=== PATIENT | female | born 1965 | race African-American/Black ===

== ENCOUNTER 2019-01-18 20:31 | Emergency (ER) | payer BC, OTHER ==
--- NOTE | 2019-01-18 21:12 | EDPHYS ---
Physician Documentation [facility] Name: Susana Lane Age: 53 yrs Sex: Female : 1965 Arrival Date: 01/18/2019 Time: 20:33 Bed 18 Private MD: Laurie Holland ED Physician Jesus Manuel Najera HPI: 01/18 21:36 This 53 yrs old Black Female presents to ER via Ambulatory with complaints of Shoulder snw Pain. 21:36 The patient or guardian complains of decreased range of motion, pain, tenderness. snw posterior aspect of right shoulder. Context: The problem was sustained at an unknown site, resulted from an unknown reason, The patient experiences decreased range of motion, when attempts to raise arm, The patient reports no obvious deformity. Onset: The symptoms/episode began/occurred gradually, 1 month(s) ago, and became persistent. Modifying factors: the symptoms are alleviated by nothing. The symptoms are aggravated by movement. Severity of symptoms: At their worst the symptoms were moderate, severe. Treatment prior to arrival includes: went to PCP and was given arthritis pain medication one month ago. The patient has experienced a previous episode, last month, and the symptoms today are exactly the same. as noted. 21:37 denies trauma. 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 - Social history:: Smoking status: Patient/guardian denies using tobacco. - Ebola Screening: : No symptoms or risks identified at this time. ROS: 21:35 Constitutional: Negative for fever, chills, and weight loss, Eyes: Negative for injury, snw pain, redness, and discharge, ENT: Negative for injury, pain, and discharge, Neck: Negative for injury, pain, and swelling, Cardiovascular: Negative for chest pain, palpitations, and edema, Respiratory: Negative for shortness of breath, cough, wheezing, and pleuritic chest pain, Abdomen/GI: Negative for abdominal pain, nausea, vomiting, diarrhea, and constipation, Back: Negative for injury and pain, : Negative for injury, bleeding, discharge, and swelling, Skin: Negative for injury, rash, and discoloration, Neuro: Negative for headache, weakness, numbness, tingling, and seizure, Psych: Negative for depression, anxiety, suicide ideation, homicidal ideation, and hallucinations. 21:35 MS/extremity: Positive for decreased range of motion, pain, tenderness, of the posterior aspect of right shoulder. Exam: 21:34 Constitutional: This is a well developed, well nourished patient who is awake, alert, snw and in no acute distress. Head/Face: Normocephalic, atraumatic. Eyes: Pupils equal round and reactive to light, extra-ocular motions intact. Lids and lashes normal. Conjunctiva and sclera are non-icteric and not injected. Cornea within normal limits. Periorbital areas with no swelling, redness, or edema. ENT: Nares patent. No nasal discharge, no septal abnormalities noted. Tympanic membranes are normal and external auditory canals are clear. Oropharynx with no redness, swelling, or masses, exudates, or evidence of obstruction, uvula midline. Mucous membranes moist. Neck: Trachea midline, no thyromegaly or masses palpated, and no cervical lymphadenopathy. Supple, full range of motion without nuchal rigidity, or vertebral point tenderness. No Meningismus. Chest/axilla: Normal chest wall appearance and motion. Nontender with no deformity. No lesions are appreciated. Cardiovascular: Regular rate and rhythm with a normal S1 and S2. No gallops, murmurs, or rubs. Normal PMI, no JVD. No pulse deficits. Respiratory: Lungs have equal breath sounds bilaterally, clear to auscultation and percussion. No rales, rhonchi or wheezes noted. No increased work of breathing, no retractions or nasal flaring. Abdomen/GI: Soft, non-tender, with normal bowel sounds. No distension or tympany. No guarding or rebound. No evidence of tenderness throughout. Back: No spinal tenderness. No costovertebral tenderness. Full range of motion. Skin: Warm, dry with normal turgor. Normal color with no rashes, no lesions, and no evidence of cellulitis. Neuro: Awake and alert, GCS 15, oriented to person, place, time, and situation. Cranial nerves II-XII grossly intact. Motor strength 5/5 in all extremities. Sensory grossly intact. Cerebellar exam normal. Normal gait. Psych: Awake, alert, with orientation to person, place and time. Behavior, mood, and affect are within normal limits. 21:34 Musculoskeletal/extremity: Extremities: grossly normal except: noted in the posterior aspect of right shoulder: decreased ROM, pain, ROM: limited active range of motion due to pain, Circulation is intact in all extremities. Sensation intact. Vital Signs: 20:40 BP 139 / 75; Pulse 70; Resp 18; Temp 98(O); Pulse Ox 97% on R/A; Weight 98.43 kg; lp1 Height 4 ft. 9 in. (144.78 cm); Pain 7/10; 21:40 BP 108 / 75; Pulse 71; Resp 17 S; Pulse Ox 97% on R/A; cc3 20:40 Body Mass Index 46.96 (98.43 kg, 144.78 cm) lp1 MDM: 20:52 Patient medically screened. snw 21:35 Data reviewed: vital signs, nurses notes. Data interpreted: Pulse oximetry: on room air snw is 97 %. Interpretation: normal. Counseling: I had a detailed discussion with the patient and/or guardian regarding: the historical points, exam findings, and any diagnostic results supporting the discharge/admit diagnosis, the need for outpatient follow up, to return to the emergency department if symptoms worsen or persist or if there are any questions or concerns that arise at home. Special discussion: I have referred the patient to see his PCP for further evaluation of high blood pressure. Based on the history and exam findings, there is no indication for further emergent testing or inpatient evaluation. I discussed with the patient/guardian the need to see the orthopedic surgeon for further evaluation of the symptoms. I discussed with the patient/guardian the need to see the primary care provider for further evaluation of the symptoms. Administered Medications: 21:20 Drug: Flexeril 10 mg Route: PO; cc3 21:41 Follow up: Response: No adverse reaction cc3 21:23 Drug: TORadol 60 mg Route: IM; Site: right gluteus; cc3 21:41 Follow up: Response: No adverse reaction; Pain is decreased cc3 Disposition: 01/18/19 21:12 Discharged to Home. Impression: Pain in right shoulder. - Condition is Stable. - Discharge Instructions: Joint Pain, Musculoskeletal Pain, Rotator Cuff Injury, Rotator Cuff Tendinitis, Shoulder Pain, Shoulder Range of Motion Exercises, Heat Therapy. - Prescriptions for Diclofenac Sodium 75 mg Oral Tablet Sustained Release - take 1 tablet by ORAL route 2 times per day; 30 tablet. orphenadrine citrate 100 mg Oral Tablet Sustained Release - take 1 tablet by ORAL route 2 times per day As needed; 20 tablet. - Medication Reconciliation Form, Thank You Letter, Antibiotic Education, Prescription Opioid Use form. - Follow up: Laurie Holland MD; When: 2 - 3 days; Reason: Recheck today's complaints, Continuance of care, Re-evaluation by your physician. Follow up: Emergency Department; When: As needed; Reason: Worsening of condition. Signatures: Rosi Villatoro, SUSAN-C POLISHER APPRENTICE-Csnw Scarlet Reed RN RN lp1 Maki Hoff cc3 Corrections: (The following items were deleted from the chart) 21:41 21:12 01/18/2019 21:12 Discharged to Home. Impression: Pain in right shoulder. cc3 Condition is Stable. Forms are Medication Reconciliation Form, Thank You Letter, Antibiotic Education, Prescription Opioid Use. Follow up: Laurie Holland; When: 2 - 3 days; Reason: Recheck today's complaints, Continuance of care, Re-evaluation by your physician. Follow up: Emergency Department; When: As needed; Reason: Worsening of condition. snw
--- NOTE | 2019-01-18 21:12 | ER ---
Nurse's Notes [facility] Name: Susana Lane Age: 53 yrs Sex: Female : 1965 Arrival Date: 01/18/2019 Time: 20:33 Bed 18 Private MD: Laurie Holland Diagnosis: Pain in right shoulder Presentation: 01/18 20:38 Presenting complaint: Patient states: Right shoulder pain for over month; Seen last lp1 month for pain and given medication with no relief; "I'm just getting tired of the pain"; denies any trauma to right shoulder. Transition of care: patient was not received from another setting of care. Onset of symptoms was January 18, 2019. Risk Assessment: Do you want to hurt yourself or someone else? Patient reports no desire to harm self or others. Initial Sepsis Screen: Does the patient meet any 2 criteria? No. Patient's initial sepsis screen is negative. Does the patient have a suspected source of infection? No. Patient's initial sepsis screen is negative. Care prior to arrival: None. 20:38 Method Of Arrival: Ambulatory lp1 20:38 Acuity: JAKOB 4 lp1 Triage Assessment: 21:14 General: Appears in no apparent distress. comfortable, Behavior is calm, cooperative, cc3 appropriate for age. Pain: Complains of pain in right arm and posterior aspect of right shoulder Quality of pain is described as aching. EENT: No signs and/or symptoms were reported regarding the EENT system. Neuro: Level of Consciousness is awake, alert, obeys commands, Oriented to person, place, time, situation, Appropriate for age. Cardiovascular: Denies chest pain, Patient's skin is warm and dry. Respiratory: Airway is patent Respiratory effort is even, unlabored, Respiratory pattern is regular, symmetrical. GI: Abdomen is round obese. : No signs and/or symptoms were reported regarding the genitourinary system. Derm: No signs and/or symptoms reported regarding the dermatologic system. Musculoskeletal: Circulation, motion, and sensation intact. Range of motion: limited in posterior aspect of right shoulder and right arm. 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 - Social history:: Smoking status: Patient/guardian denies using tobacco. - Ebola Screening: : No symptoms or risks identified at this time. Screenin:41 Abuse screen: Denies threats or abuse. Denies injuries from another. Nutritional lp1 screening: No deficits noted. Tuberculosis screening: No symptoms or risk factors identified. Fall Risk None identified. Assessment: 21:14 General: see triage assessment. cc3 21:41 Reassessment: Patient appears in no apparent distress at this time. Patient and/or cc3 family updated on plan of care and expected duration. Pain level reassessed. Patient is alert, oriented x 3, equal unlabored respirations, skin warm/dry/pink. KRISTI Aranda discharged the patient home with prescription given. No IV cannula in situ. Patient left ER vitally stable and ambulatory. Patient states feeling better. Patient states symptoms have improved. Vital Signs: 20:40 BP 139 / 75; Pulse 70; Resp 18; Temp 98(O); Pulse Ox 97% on R/A; Weight 98.43 kg; lp1 Height 4 ft. 9 in. (144.78 cm); Pain 7/10; 21:40 BP 108 / 75; Pulse 71; Resp 17 S; Pulse Ox 97% on R/A; cc3 20:40 Body Mass Index 46.96 (98.43 kg, 144.78 cm) lp1 ED Course: 20:33 Patient arrived in ED. do 20:34 Laurie Holland MD is Private Physician. do 20:39 Triage completed. lp1 20:39 Arm band placed on right wrist. lp1 20:40 Rosi Villator[facility] FNP-C [facility] snw 20:40 Jesus Manuel Najera MD is Attending Physician. snw 21:11 Laurie Holland MD is Referral Physician. snw 21:14 Maki Hoff is Primary Nurse. cc3 21:14 Patient has correct armband on for positive identification. Bed in low position. Call cc3 light in reach. Side rails up X 1. Pulse ox on. NIBP on. 21:40 No provider procedures requiring assistance completed. Patient did not have IV access cc3 during this emergency room visit. Administered Medications: 21:20 Drug: Flexeril 10 mg Route: PO; cc3 21:41 Follow up: Response: No adverse reaction cc3 21:23 Drug: TORadol 60 mg Route: IM; Site: right gluteus; cc3 21:41 Follow up: Response: No adverse reaction; Pain is decreased cc3 Outcome: 21:12 Discharge ordered by MD. rucker 21:41 Patient left the ED. cc3 21:41 Discharged to home ambulatory. cc3 21:41 Condition: stable 21:41 Discharge instructions given to patient, Instructed on discharge instructions, follow up and referral plans. medication usage, Demonstrated understanding of instructions, follow-up care, medications, Prescriptions given X 2. Signatures: Rosi Villatoro, FORENSIC PHOTOGRAPHER-C FORENSIC PHOTOGRAPHER-Csnw Scarlet Reed RN RN lp1 Penny Morales Charlene cc3 Corrections: (The following items were deleted from the chart) 20:42 20:40 BP 139 / 75; Resp 18bpm; Temp 98F Oral; 98.43 kg; Height 4 ft. 9 in.; BMI: 46.9; lp1 Pain 7/10; lp1
[2019-01-18] MEDS ORDERED: CYCLOBENZAPRINE 10 MG TAB ONE (21:32)
[2019-01-18] MEDS ORDERED: KETOROLAC 30 MG/ML INJ ONE (21:33)
== END 2019-01-18 21:41 | disposition home or self-care (01) ==
LOC: ER 20:31
DX: M25.511 Pain in right shoulder (principal); I10 Essential (primary) hypertension; Z79.899 Other long term (current) drug therapy
CPT/HCPCS: 96372; 99283

== ENCOUNTER 2019-04-10 18:43 | Emergency (ER) | payer OTHER ==
--- OUTSIDE RECORDS SUMMARY | 2019-04-10 18:47 | XMS REPORT ---
:1965 Author Organization e[employer] Care Team Providers Name Role Phone Laurie Holland Provider Role Unavailable Allergies, Adverse Reactions, Alerts Substance Reaction Event Type N.K.D.A. Info Not Available Non Drug Allergy Problems Problem Type Condition Code Onset Dates Condition Status Problem Left-sided thoracic back pain, M54.6 Active unspecified chronicity Problem Body mass index (BMI) of 45.0-49.9 Z68.42 Active in adult Problem Prediabetes R73.03 Active Problem Hypertension I10 Active Problem Hyperglycemia R73.9 Active Problem Allergic rhinitis J30.9 Active Problem Dietary counseling and surveillance Z71.3 Active Problem Elevated serum creatinine R79.89 Active Problem Abnormal laboratory test R89.9 Active Problem Morbid (severe) obesity due to E66.01 Active excess calories Assessment Morbid (severe) obesity due to E66.01 Active excess calories Assessment Abnormal laboratory test R89.9 Active Assessment Prediabetes R73.03 Active Assessment Body mass index (BMI) of 45.0-49.9 Z68.42 Active in adult Assessment Hypertension, unspecified type I10 Active Assessment Dietary counseling and surveillance Z71.3 Active Problem Hypertension, unspecified type I10 Active Medications Medication Code Code Instructions Start End Status Dosage System Date Date Lisinopril/HCTZ [facility] 56095213986 10/12.5 mg Jul 25, Active 1 tablet orally Once 2018 daily Cyclobenzaprine [facility] 88883683259 10 MG Orally Active 1 tablet HCl Two times a day as needed Results No Known Results Summary Purpose eClinicalWorks Submission
--- OUTSIDE RECORDS SUMMARY | 2019-04-10 18:47 | XMS REPORT ---
:1965 Author Organization [employer] Care Team Providers Name Role Phone Laurie Holland Provider Role Unavailable Allergies, Adverse Reactions, Alerts Substance Reaction Event Type N.K.D.A. Info Not Available Non Drug Allergy Problems Problem Type Condition Code Onset Dates Condition Status Assessment Anxiety F41.9 Active Problem Morbid (severe) obesity due to E66.01 Active excess calories Assessment Insomnia, unspecified type G47.00 Active Problem Hyperglycemia R73.9 Active Assessment Hypercholesterolemia E78.00 Active Problem Hypertension I10 Active Problem Difficulty sleeping G47.9 Active Problem Allergic rhinitis J30.9 Active Problem Acute pain of right shoulder M25.511 Active Problem Hypercholesterolemia E78.00 Active Assessment Essential hypertension I10 Active Assessment Acute pain of right shoulder M25.511 Active Problem Essential hypertension I10 Active Assessment Prediabetes R73.03 Active Problem Anxiety F41.9 Active Problem Chest tightness R07.89 Active Problem Bereavement Z63.4 Active Problem Insomnia, unspecified type G47.00 Active Problem Abnormal laboratory test R89.9 Active Problem Hypertension, unspecified type I10 Active Problem Prediabetes R73.03 Active Problem Elevated serum creatinine R79.89 Active Problem Dietary counseling and surveillance Z71.3 Active Problem Left-sided thoracic back pain, M54.6 Active unspecified chronicity Problem Body mass index (BMI) of 45.0-49.9 Z68.42 Active in adult Medications Medication Code Code Instructions Start End Status Dosage System Date Date Trazodone HCl ND 17395252389 50 MG Orally March 18, Active 1-2 Once a day 2017 tablets at bedtime as needed for sleep Cyclobenzaprine ND 80188695327 10 MG Orally Active 1 tablet HCl Two times a day as needed BusPIRone HCl NDC 59153769652 7.5 MG Orally March 18, Active 1 tablet Twice a day 2018 as needed for anxiety Meloxicam ND 10229924551 15 MG Orally December Active 1/2 to 1 Once a day as 2018 04, tablet needed for 2019 pain; take with food Lisinopril/HCTZ [facility] 34223467230 10/12.5 mg Sep 09, Active 1 tablet orally Once 2018 daily Results No Known Results Summary Purpose eClinicalWorks Submission
--- OUTSIDE RECORDS SUMMARY | 2019-04-10 18:47 | XMS REPORT ---
:1965 Author Organization [employer] Care Team Providers Name Role Phone Laurie Holland Provider Role Unavailable Allergies, Adverse Reactions, Alerts Substance Reaction Event Type N.K.D.A. Info Not Available Non Drug Allergy Problems Problem Type Condition Code Onset Dates Condition Status Problem Morbid (severe) obesity due to E66.01 Active excess calories Problem Hypertension I10 Active Problem Hyperglycemia R73.9 Active Problem Chest tightness R07.89 Active Assessment Prediabetes R73.03 Active Problem Hypercholesterolemia E78.00 Active Assessment Chest tightness R07.89 Active Assessment Insomnia, unspecified type G47.00 Active Problem Anxiety F41.9 Active Problem Insomnia, unspecified type G47.00 Active Problem Allergic rhinitis J30.9 Active Problem Difficulty sleeping G47.9 Active Problem Bereavement Z63.4 Active Problem Abnormal laboratory test R89.9 Active Assessment Hypercholesterolemia E78.00 Active Assessment Hypertension I10 Active Problem Left-sided thoracic back pain, M54.6 Active unspecified chronicity Problem Body mass index (BMI) of 45.0-49.9 Z68.42 Active in adult Problem Prediabetes R73.03 Active Problem Elevated serum creatinine R79.89 Active Assessment Anxiety F41.9 Active Problem Hypertension, unspecified type I10 Active Problem Dietary counseling and surveillance Z71.3 Active Medications Medication Code Code Instructions Start End Status Dosage System Date Date Trazodone HCl [facility] 13307466919 50 MG Orally March 18, Active 1-2 Once a day 2017 tablets at bedtime as needed for sleep BusPIRone HCl ND 76235236465 7.5 MG Orally March 18, Active 1 tablet Twice a day 2017 as needed for anxiety Lisinopril/HCTZ ND 96385499817 10/12.5 mg March Active 1 tablet orally Once 28, daily 2018 Cyclobenzaprine ND 27032497238 10 MG Orally Active 1 tablet HCl Two times a day as needed Results No Known Results Summary Purpose eClinicalWorks Submission
--- OUTSIDE RECORDS SUMMARY | 2019-04-10 18:47 | XMS REPORT ---
[...] Active Problem Chest tightness R07.89 Active Assessment Difficulty sleeping G47.9 Active Problem Hypercholesterolemia E78.00 Active Assessment Prediabetes R73.03 Active Assessment Hypercholesterolemia E78.00 Active Problem Anxiety F41.9 Active Problem Insomnia, unspecified type G47.00 Active Problem Allergic rhinitis J30.9 Active Problem Difficulty sleeping G47.9 Active Problem Bereavement Z63.4 Active Assessment Anxiety F41.9 Active Problem Abnormal laboratory test R89.9 Active Assessment Bereavement Z63.4 Active Assessment Chest tightness R07.89 Active Problem Left-sided thoracic back pain, M54.6 Active unspecified chronicity Problem Body mass index (BMI) of 45.0-49.9 Z68.42 Active in adult Problem Prediabetes R73.03 Active Problem Elevated serum creatinine R79.89 Active Problem Hypertension, unspecified type I10 Active Problem Dietary counseling and surveillance Z71.3 Active Medications Medication Code Code Instructions Start End Status Dosage System Date Date BusPIRone HCl ND 31157870088 7.5 MG Orally March 18, Active 1 tablet Twice a day 2018 as needed for anxiety Lisinopril/HCTZ ND 59697283764 10/12.5 mg Jul 25, Active 1 tablet orally Once 2018 daily Trazodone HCl ND 78485586909 50 MG Orally March 18, Active 1-2 Once a day 2018 tablets at bedtime as needed for sleep Cyclobenzaprine ND 17994413791 10 MG Orally Active 1 tablet HCl Two times a day as needed Results No Known Results Summary Purpose eClinicalWorks Submission
--- NOTE | 2019-04-10 20:04 | EDPHYS ---
Physician Documentation [facility] Name: Susana Lane Age: 53 yrs Sex: Female : 1965 Arrival Date: 04/10/2019 Time: 18:46 Bed Treatment Private MD: Laurie Holland ED Physician Jesus Manuel Najera HPI: 04/10 20:02 This 53 yrs old Black Female presents to ER via Ambulatory with complaints of Toe pm1 laceration. 20:02 The patient presents with a laceration, 0.2 cm(s). The complaints affect the left fifth pm1 toe. Context: The problem was sustained at home, resulted from dropped her knife on her foot, the patient can fully bear weight, the patient is able to ambulate. Onset: The symptoms/episode began/occurred just prior to arrival. Modifying factors: The symptoms are alleviated by pressure the symptoms are aggravated by nothing. Associated signs and symptoms: Pertinent negatives: numbness, tingling. Severity of symptoms: in the emergency department the symptoms have improved. The patient has not experienced similar symptoms in the past. The patient has not recently seen a physician. Historical: - Allergies: 18:54 No Known Allergies; hj - PMHx: 18:54 Hypertension; hj - PSHx: 18:54 None; hj - Immunization history:: Adult Immunizations up to date. - Social history:: Smoking status: Patient/guardian denies using tobacco. - Ebola Screening: : No symptoms or risks identified at this time. ROS: 20:02 MS/extremity: Positive for laceration of the left fifth toe, Negative for decreased pm1 range of motion, deformity. 20:02 Constitutional: Negative for fever, chills, and weight loss, Eyes: Negative for injury, pain, redness, and discharge, ENT: Negative for injury, pain, and discharge, Neck: Negative for injury, pain, and swelling, Cardiovascular: Negative for chest pain, palpitations, and edema, Respiratory: Negative for shortness of breath, cough, wheezing, and pleuritic chest pain, Abdomen/GI: Negative for abdominal pain, nausea, vomiting, diarrhea, and constipation, Back: Negative for injury and pain. 20:02 Skin: Positive for laceration(s), of the left fifth toe. Exam: 20:02 Constitutional: This is a well developed, well nourished patient who is awake, alert, pm1 and in no acute distress. Head/Face: Normocephalic, atraumatic. Neck: Trachea midline, no thyromegaly or masses palpated, and no cervical lymphadenopathy. Supple, full range of motion without nuchal rigidity, or vertebral point tenderness. No Meningismus. Chest/axilla: Normal chest wall appearance and motion. Nontender with no deformity. No lesions are appreciated. Cardiovascular: Regular rate and rhythm with a normal S1 and S2. No gallops, murmurs, or rubs. Normal PMI, no JVD. No pulse deficits. Respiratory: Lungs have equal breath sounds bilaterally, clear to auscultation and percussion. No rales, rhonchi or wheezes noted. No increased work of breathing, no retractions or nasal flaring. Abdomen/GI: Soft, non-tender, with normal bowel sounds. No distension or tympany. No guarding or rebound. No evidence of tenderness throughout. Back: No spinal tenderness. No costovertebral tenderness. Full range of motion. 20:02 Skin: Appearance: normal except for affected area, injury, laceration(s), the wound is approximately 0.2 cm(s), with a depth of 0.2 cm(s), of the left fifth toe. 20:02 Neuro: Orientation: is normal, Motor: is normal, moves all fours. Vital Signs: 18:54 Pulse 75; Resp 18; Temp 98.1; Pulse Ox 100% on R/A; Weight 90.72 kg; Height 4 ft. 9 in. (144.78 cm); Pain 7/10; 18:57 BP 106 / 76; jd3 18:54 Body Mass Index 43.28 (90.72 kg, 144.78 cm) MDM: 20:00 Patient medically screened. pm1 20:02 Data reviewed: vital signs. Data interpreted: Pulse oximetry: on room air is 100 %. pm1 Interpretation: normal. Counseling: I had a detailed discussion with the patient and/or guardian regarding: the historical points, exam findings, and any diagnostic results supporting the discharge/admit diagnosis, the need for outpatient follow up, to return to the emergency department if symptoms worsen or persist or if there are any questions or concerns that arise at home. Administered Medications: No medications were administered Disposition: 04/11 09:06 Co-signature as Attending Physician, Jesus Manuel Najera MD I agree with the assessment and maría plan of care. Disposition: 04/10/19 20:03 Discharged to Home. Impression: Laceration without foreign body of left lesser toe(s) without damage to nail. - Condition is Stable. - Discharge Instructions: Laceration Care, Adult. - Medication Reconciliation Form, Thank You Letter, Antibiotic Education, Prescription Opioid Use form. - Follow up: Emergency Department; When: As needed; Reason: Worsening of condition. Follow up: Private Physician; When: As needed; Reason: Recheck today's complaints, Continuance of care, Re-evaluation by your physician. - Problem is new. - Symptoms have improved. Signatures: Jesus Manuel Najera MD MD cha Pena, Laura, RN RN lp1 Carter Taylor RN RN hj Harinder Blank, SODA JERKER SODA JERKER pm1 Corrections: (The following items were deleted from the chart) 04/10 20:06 20:03 04/10/2019 20:03 Discharged to Home. Impression: Laceration without foreign body lp1 of left lesser toe(s) without damage to nail. Condition is Stable. Forms are Medication Reconciliation Form, Thank You Letter, Antibiotic Education, Prescription Opioid Use. Follow up: Emergency Department; When: As needed; Reason: Worsening of condition. Follow up: Private Physician; When: As needed; Reason: Recheck today's complaints, Continuance of care, Re-evaluation by your physician. Problem is new. Symptoms have improved. pm1
--- NOTE | 2019-04-10 20:04 | ER ---
Nurse's Notes [facility] Name: Susana Lane Age: 53 yrs Sex: Female : 1965 Arrival Date: 04/10/2019 Time: 18:46 Bed Treatment Private MD: Laurie Holland Diagnosis: Laceration without foreign body of left lesser toe(s) without damage to nail Presentation: 04/10 18:52 Presenting complaint: Patient states: i was in the kitchen and the i dropped the knife hj and hit my L 5th digit toe, happened around 20 mins ago;. Transition of care: patient was not received from another setting of care. Onset of symptoms was April 10, 2019. Risk Assessment: Do you want to hurt yourself or someone else? Patient reports no desire to harm self or others. Initial Sepsis Screen: Does the patient meet any 2 criteria? No. Patient's initial sepsis screen is negative. Does the patient have a suspected source of infection? No. Patient's initial sepsis screen is negative. Care prior to arrival: None. 18:52 Method Of Arrival: Ambulatory 18:52 Acuity: JAKOB 4 hj Historical: - Allergies: 18:54 No Known Allergies; hj - PMHx: 18:54 Hypertension; hj - PSHx: 18:54 None; hj - Immunization history:: Adult Immunizations up to date. - Social history:: Smoking status: Patient/guardian denies using tobacco. - Ebola Screening: : No symptoms or risks identified at this time. Screenin:53 Abuse screen: Denies threats or abuse. Denies injuries from another. Nutritional lp1 screening: No deficits noted. Tuberculosis screening: No symptoms or risk factors identified. Fall Risk None identified. Assessment: 19:52 Reassessment: Small laceration to left fifth toe cleaned with NS, wrapped with lp1 band-aid; Patient states "It seemed much bigger from all the blood". General: Appears in no apparent distress. Behavior is appropriate for age. Pain: Complains of pain in left fifth toe. Neuro: No deficits noted. Cardiovascular: No deficits noted. Respiratory: No deficits noted. GI: No deficits noted. : No deficits noted. EENT: No deficits noted. Derm: small laceration to left fifth toe, no active bleeding;. Musculoskeletal: No deficits noted. Vital Signs: 18:54 Pulse 75; Resp 18; Temp 98.1; Pulse Ox 100% on R/A; Weight 90.72 kg; Height 4 ft. 9 in. (144.78 cm); Pain 7/10; 18:57 BP 106 / 76; jd3 18:54 Body Mass Index 43.28 (90.72 kg, 144.78 cm) ED Course: 18:46 Patient arrived in ED. mr 18:46 Laurie Holland MD is Private Physician. mr 18:53 Triage completed. hj 18:54 Arm band placed on left wrist. hj 19:51 Scarlet Reed, RN is Primary Nurse. lp1 19:53 Patient has correct armband on for positive identification. lp1 19:53 No provider procedures requiring assistance completed. Patient did not have IV access lp1 during this emergency room visit. 19:59 Harinder Blank NP is PHCP. pm1 19:59 Jesus Manuel Najera MD is Attending Physician. pm1 Administered Medications: No medications were administered Outcome: 20:03 Discharge ordered by . pm1 20:06 Discharged to home ambulatory. lp1 20:06 Condition: good 20:06 Discharge instructions given to patient, Instructed on discharge instructions, Demonstrated understanding of instructions. 20:06 Patient left the ED. lp1 Signatures: Riya Linda mr Scarlet Reed, RN RN lp1 Carter Taylor RN RN Harinder Blank NP [employer] pm1 [place] RN RN jd3
== END 2019-04-10 20:06 | disposition home or self-care (01) ==
LOC: ER 18:43
DX: S91.115A Laceration without foreign body of left lesser toe(s) without damage to nail, initial encounter (principal); W26.0XXA Contact with knife, initial encounter; Y93.89 Activity, other specified; Y92.009 Unspecified place in unspecified non-institutional (private) residence as the place of occurrence of the external cause; I10 Essential (primary) hypertension
CPT/HCPCS: 99281

== ENCOUNTER 2019-06-02 16:36 | Emergency (ER) | payer OTHER ==
--- OUTSIDE RECORDS SUMMARY | 2019-06-02 16:38 | XMS REPORT ---
[...] Dosage System Date Date Trazodone HCl ND 86543010589 50 MG Orally March 18, Active 1-2 Once a day 2017 tablets at bedtime as needed for sleep Cyclobenzaprine ND 96067998789 10 MG Orally Active 1 tablet HCl Two times a day as needed BusPIRone HCl NDC 98000032022 7.5 MG Orally March 18, Active 1 tablet Twice a day 2018 as needed for anxiety Meloxicam ND 90478483041 15 MG Orally December Active 1/2 to 1 Once a day as 2018 04, tablet needed for 2019 pain; take with food Lisinopril/HCTZ [facility] 79276214432 10/12.5 mg Sep 09, Active 1 tablet orally Once 2018 daily Results No Known Results Summary Purpose eClinicalWorks Submission
--- OUTSIDE RECORDS SUMMARY | 2019-06-02 16:38 | XMS REPORT ---
[...] End Status Dosage System Date Date Lisinopril/HCTZ [facility][NOTE 3] 45534290494 10/12.5 mg Jul 25, Active 1 tablet orally Once 2018 daily Cyclobenzaprine [facility][NOTE 3] 91787809858 10 MG Orally Active 1 tablet HCl Two times a day as needed Results No Known Results Summary Purpose eClinicalWorks Submission
--- OUTSIDE RECORDS SUMMARY | 2019-06-02 16:38 | XMS REPORT ---
[...] Status Dosage System Date Date Trazodone HCl [facility] 2001 02315858148 50 MG Orally March 18, Active 1-2 Once a day 2017 tablets at bedtime as needed for sleep BusPIRone HCl ND 09794374580 7.5 MG Orally March 18, Active 1 tablet Twice a day 2017 as needed for anxiety Lisinopril/HCTZ ND 09607794850 10/12.5 mg March Active 1 tablet orally Once 28, daily 2018 Cyclobenzaprine ND 19010545371 10 MG Orally Active 1 tablet HCl Two times a day as needed Results No Known Results Summary Purpose eClinicalWorks Submission
--- OUTSIDE RECORDS SUMMARY | 2019-06-02 16:38 | XMS REPORT ---
[...] Dosage System Date Date BusPIRone HCl ND 68769471448 7.5 MG Orally March 18, Active 1 tablet Twice a day 2018 as needed for anxiety Lisinopril/HCTZ ND 13473062983 10/12.5 mg Jul 25, Active 1 tablet orally Once 2018 daily Trazodone HCl ND 96987876848 50 MG Orally March 18, Active 1-2 Once a day 2018 tablets at bedtime as needed for sleep Cyclobenzaprine ND 03734124173 10 MG Orally Active 1 tablet HCl Two times a day as needed Results No Known Results Summary Purpose eClinicalWorks Submission
[2019-06-02] MEDS ORDERED: IBUPROFEN 200 MG TAB PO ONE (17:35)
--- NOTE | 2019-06-02 18:34 | ER ---
Nurse's Notes [facility] Name: Susana Lane Age: 53 yrs Sex: Female : 1965 Arrival Date: 06/02/2019 Time: 16:38 Bed Treatment Private MD: Laurie Holland Diagnosis: Pain in left shoulder Presentation: 06/02 16:55 Presenting complaint: Patient states: left shoulder pain with ROM, pain with with la1 elevation of left arm. Has been going on for 2 weeks. Transition of care: patient was not received from another setting of care. Onset of symptoms was June 02, 2019. Risk Assessment: Do you want to hurt yourself or someone else? Patient reports no desire to harm self or others. Initial Sepsis Screen: Does the patient meet any 2 criteria? No. Patient's initial sepsis screen is negative. Does the patient have a suspected source of infection? No. Patient's initial sepsis screen is negative. Care prior to arrival: None. 16:55 Method Of Arrival: Ambulatory la1 16:55 Acuity: JAKOB 4 la1 Historical: - Allergies: 16:56 No Known Allergies; la1 - PMHx: 16:56 Hypertension; la1 - Immunization history:: Adult Immunizations up to date. - Social history:: Smoking status: Patient/guardian denies using tobacco. - Ebola Screening: : No symptoms or risks identified at this time. - Family history:: not pertinent. Screenin:39 Abuse screen: Denies threats or abuse. Denies injuries from another. Nutritional ss screening: No deficits noted. Tuberculosis screening: Never had TB. Fall Risk None identified. Assessment: 17:39 General: Appears in no apparent distress. comfortable, Behavior is calm, cooperative, ss Denies fever, feeling ill, fatigue, chills. Pain: Complains of pain in L shoulder Pain currently is 8 out of 10 on a pain scale. Quality of pain is described as aching, tender, Pain began 2 weeks ago Is continuous, Aggravated by increased activity, repositioning, ROM. Neuro: Level of Consciousness is awake, alert, obeys commands, Oriented to person, place, time, situation. Cardiovascular: Capillary refill < 3 seconds is brisk in bilateral fingers Patient's skin is warm and dry. Respiratory: Airway is patent Respiratory effort is even, unlabored, Respiratory pattern is regular, symmetrical. GI: Patient currently denies diarrhea, nausea, vomiting. : No signs and/or symptoms were reported regarding the genitourinary system. EENT: Oral mucosa is moist. Derm: Skin is intact, is healthy with good turgor, Skin is pink, warm \T\ dry. normal. Musculoskeletal: Circulation, motion, and sensation intact. Range of motion: limited in left shoulder Swelling absent. 17:47 Reassessment: Awaiting XRAY to be obtained. Vital Signs: 16:56 Pulse 67; Resp 16; Temp 98.4; Pulse Ox 98% on R/A; Weight 92.08 kg; Height 4 ft. 9 in. la1 (144.78 cm); 18:27 BP 138 / 81; ss 16:56 Body Mass Index 43.93 (92.08 kg, 144.78 cm) la1 ED Course: 16:38 Patient arrived in ED. mr 16:39 Laurie Holland MD is Private Physician. mr 16:55 Triage completed. la1 16:56 Arm band placed on left wrist. la1 17:31 Jesus Manuel Najera MD is Attending Physician. [facility] 17:33 Henrietta Powell RN is Primary Nurse. ss 17:39 Patient has correct armband on for positive identification. Bed in low position. Call ss light in reach. 18:05 Shoulder Left (2 View) XRAY In Process Unspecified. EDMS 18:24 Laurie Holland MD is Referral Physician. maría 18:24 Jerome Laughlin MD is Referral Physician. [facility] 18:43 No provider procedures requiring assistance completed. Patient did not have IV access ss during this emergency room visit. Administered Medications: 17:39 Drug: Motrin 600 mg Route: PO; ss 18:27 Follow up: Response: No adverse reaction; Pain is decreased ss Outcome: 18:24 Discharge ordered by . [facility] 18:43 Discharged to home ambulatory. 18:43 Condition: good 18:43 Discharge instructions given to patient, Instructed on discharge instructions, follow up and referral plans. medication usage, Demonstrated understanding of instructions, follow-up care, medications, Prescriptions given X 3. 18:44 Patient left the ED. Signatures: Dispatcher [employer] EDDC Jesus Manuel Najera MD MD cha Rivera, Mary mr Henrietta Powell, KRISTI RN Attema, Nii, RN RN la1
--- NOTE | 2019-06-02 18:34 | EDPHYS ---
Physician Documentation [facility] Name: Susana Lane Age: 53 yrs Sex: Female : 1965 Arrival Date: 06/02/2019 Time: 16:38 Bed Treatment Private MD: Laurie Holland ED Physician Jesus Manuel Najera HPI: 06/02 18:21 This 53 yrs old Black Female presents to ER via Ambulatory with complaints of Shoulder maría Pain. 18:21 The patient or guardian complains of decreased range of motion, pain, that is acute. maría left shoulder. Context: The problem was sustained at home, resulted from repetitive motion, an unknown reason. Onset: The symptoms/episode began/occurred 2 week(s) ago. Modifying factors: the symptoms are alleviated by remaining still, The symptoms are aggravated by lifting weight, movement, rotation of arm. Associated signs and symptoms: The patient has no apparent associated signs or symptoms. Severity of symptoms: At their worst the symptoms were mild, moderate, in the emergency department the symptoms are unchanged. Treatment prior to arrival includes: no previous treatment. The patient has not experienced similar symptoms in the past. Historical: - Allergies: 16:56 No Known Allergies; la1 - PMHx: 16:56 Hypertension; la1 - Immunization history:: Adult Immunizations up to date. - Social history:: Smoking status: Patient/guardian denies using tobacco. - Ebola Screening: : No symptoms or risks identified at this time. - Family history:: not pertinent. ROS: 18:21 Constitutional: Negative for fever, chills, and weight loss, Eyes: Negative for injury, maría pain, redness, and discharge, ENT: Negative for injury, pain, and discharge, Neck: Negative for injury, pain, and swelling, Cardiovascular: Negative for chest pain, palpitations, and edema, Respiratory: Negative for shortness of breath, cough, wheezing, and pleuritic chest pain, Abdomen/GI: Negative for abdominal pain, nausea, vomiting, diarrhea, and constipation, Back: Negative for injury and pain, : Negative for injury, bleeding, discharge, and swelling, Skin: Negative for injury, rash, and discoloration, Neuro: Negative for headache, weakness, numbness, tingling, and seizure, Psych: Negative for depression, anxiety, suicide ideation, homicidal ideation, and hallucinations, Allergy/Immunology: Negative for hives, rash, and allergies, Endocrine: Negative for neck swelling, polydipsia, polyuria, polyphagia, and marked weight changes, Hematologic/Lymphatic: Negative for swollen nodes, abnormal bleeding, and unusual bruising. 18:21 MS/extremity: Positive for decreased range of motion, pain, swelling, tenderness. Exam: 18:21 Constitutional: This is a well developed, well nourished patient who is awake, alert, maría and in no acute distress. Head/Face: Normocephalic, atraumatic. Eyes: Pupils equal round and reactive to light, extra-ocular motions intact. Lids and lashes normal. Conjunctiva and sclera are non-icteric and not injected. Cornea within normal limits. Periorbital areas with no swelling, redness, or edema. ENT: Nares patent. No nasal discharge, no septal abnormalities noted. Tympanic membranes are normal and external auditory canals are clear. Oropharynx with no redness, swelling, or masses, exudates, or evidence of obstruction, uvula midline. Mucous membranes moist. Neck: Trachea midline, no thyromegaly or masses palpated, and no cervical lymphadenopathy. Supple, full range of motion without nuchal rigidity, or vertebral point tenderness. No Meningismus. Chest/axilla: Normal chest wall appearance and motion. Nontender with no deformity. No lesions are appreciated. Cardiovascular: Regular rate and rhythm with a normal S1 and S2. No gallops, murmurs, or rubs. Normal PMI, no JVD. No pulse deficits. Respiratory: Lungs have equal breath sounds bilaterally, clear to auscultation and percussion. No rales, rhonchi or wheezes noted. No increased work of breathing, no retractions or nasal flaring. Abdomen/GI: Soft, non-tender, with normal bowel sounds. No distension or tympany. No guarding or rebound. No evidence of tenderness throughout. Back: No spinal tenderness. No costovertebral tenderness. Full range of motion. Skin: Warm, dry with normal turgor. Normal color with no rashes, no lesions, and no evidence of cellulitis. Neuro: Awake and alert, GCS 15, oriented to person, place, time, and situation. Cranial nerves II-XII grossly intact. Motor strength 5/5 in all extremities. Sensory grossly intact. Cerebellar exam normal. Normal gait. Psych: Awake, alert, with orientation to person, place and time. Behavior, mood, and affect are within normal limits. 18:21 Musculoskeletal/extremity: Extremities: noted in the anterior aspect of left shoulder and posterior aspect of left shoulder: decreased ROM, pain, ROM: limited active range of motion, limited passive range of motion, Circulation is intact in all extremities. Sensation intact. Compartment Syndrome exam of affected extremity: is normal. DVT Exam: no swelling, no tenderness, negative Homans' sign noted on exam, no appreciated bluish discoloration, no erythema, no increased warmth, pain. Vital Signs: 16:56 Pulse 67; Resp 16; Temp 98.4; Pulse Ox 98% on R/A; Weight 92.08 kg; Height 4 ft. 9 in. la1 (144.78 cm); 18:27 BP 138 / 81; ss 16:56 Body Mass Index 43.93 (92.08 kg, 144.78 cm) la1 MDM: 17:31 Patient medically screened. [facility] 18:23 Data reviewed: vital signs, nurses notes, radiologic studies, plain films. [facility] 06/02 17:33 Order name: Shoulder Left (2 View) XRAY [facility] 06/02 17:33 Order name: Sling; Complete Time: 18:43 [facility] Administered Medications: 17:39 Drug: Motrin 600 mg Route: PO; 18:27 Follow up: Response: No adverse reaction; Pain is decreased ss Disposition: 06/02/19 18:24 Discharged to Home. Impression: Pain in left shoulder. - Condition is Stable. - Discharge Instructions: Joint Pain, Arthritis, Musculoskeletal Pain, Shoulder Pain, Shoulder Pain, [id number], Arthritis, [id number]. - Prescriptions for Tylenol- Codeine #3 300-30 mg Oral Tablet - take 2 tablet by ORAL route every 6 hours As needed; 30 tablet. Medrol (Spencer) 4 mg Oral Tablets, Dose Pack - take 1 tablet by ORAL route as directed - follow package instructions; 1 packet. Motrin IB 200 mg Oral Tablet - take 2 tablet by ORAL route every 6 hours As needed as needed with food; 30 tablet. - Medication Reconciliation Form, Thank You Letter, Antibiotic Education, Prescription Opioid Use, Work release form form. - Follow up: Laurie Holland MD; When: 2 - 3 days; Reason: Recheck today's complaints, Continuance of care, Re-evaluation by your physician. Follow up: Jerome Laughlin MD; When: 2 - 3 days; Reason: Recheck today's complaints, Re-evaluation by your physician. - Problem is new. - Symptoms have improved. Signatures: Dispatcher [employer] EDIA Jesus Manuel Najera MD MD cha Smirch, Shelby, RN RN ss Nii Johnson RN RN la1 Corrections: (The following items were deleted from the chart) 18:44 18:24 06/02/2019 18:24 Discharged to Home. Impression: Pain in left shoulder. Condition ss is Stable. Forms are Medication Reconciliation Form, Thank You Letter, Antibiotic Education, Prescription Opioid Use. Follow up: Laurie Holland; When: 2 - 3 days; Reason: Recheck today's complaints, Continuance of care, Re-evaluation by your physician. Follow up: Jerome Laughlin; When: 2 - 3 days; Reason: Recheck today's complaints, Re-evaluation by your physician. Problem is new. Symptoms have improved. maría
--- NOTE | 2019-06-02 19:25 | RAD REPORT ---
EXAM DESCRIPTION: RAD - Shoulder Left 2 View - 06/02/2019 6:03 pm CLINICAL HISTORY: Left arm and shoulder pain, decreased range of motion COMPARISON: None. TECHNIQUE: Internal and external rotation views of the left shoulder were obtained. FINDINGS: There is no fracture or dislocation. Minimal AC joint degenerative change present. Acromia l humeral joint space is normal. Small spurs are seen along the inferior articular margin of the left humeral head. Degenerative changes present along the inferior aspect of the glenoid. No acute or demetri picious findings. No suspicious soft tissue finding. IMPRESSION: Mild degenerative change at the left shoulder joint as detailed. No acute finding.
== END 2019-06-02 18:44 | disposition home or self-care (01) ==
LOC: ER 16:36
DX: M25.512 Pain in left shoulder (principal)
CPT/HCPCS: 99283

== ENCOUNTER 2022-07-31 09:09 | Emergency (ER) | payer SELFPAY ==
--- OUTSIDE RECORDS SUMMARY | 2022-07-31 09:15 | XMS REPORT | Continuity of Care Document ---
:1965 Author Organization [facility] t Address [address] [place] [address] Care Team Providers Name Role Phone LAURIE BENJAMIN Primary Care Physician Unavailable Stephen Bah Attending Clinician Unavailable Laurie Benjamin Attending Clinician Unavailable GIANNI OREILLY Attending Clinician Unavailable Gianni Oreilly NP Attending Clinician Doctor Unassigned, [place] Attending Clinician Unavailable Elza Austin Attending Clinician Lexi Philip Attending Clinician Nuzhat Dangelo MD Attending Clinician Alexx Singh MD Attending Clinician ALEXX SINGH Attending Clinician Unavailable Nik Merrill Attending Clinician GIANNI OREILLY Admitting Clinician Unavailable Nuzhat Dangelo MD Admitting Clinician Problems Condition Condition Condition Status Onset Resolution Last Treating Co mments Source Name Details Category Date Date Treatment Clinician Date Pneumonia Pneumonia Disease Active 2019-10 Uni vers due to due to 2-30 ity of COVID-19 COVID-19 00:00: [place] virus virus [address] [place] [address] Atypical Atypical Disease Active 2019-10 Unive rs pneumonia pneumonia 2- ity of 00:00: [address] [id number] Abnormal Problem Comm on laboratory [facility] test - [facility] [id number] Prediabete Problem Co mmon s [facility] Hypertensi Hypertensi Problem C ommon on on, Spirit unspecifie - [facility] d type [facility] [id number] Hyperglyce Problem Com mon sherry Spirit [facility] [id number] Insomnia, Problem Com mon unspecifie Spirit d type [facility] Allergic Allergic Problem Commo n rhinitis rhinitis [facility] [id number] Hyperchole Problem Com mon sterolemia [facility] [id number] Bereavemen Problem Com mon t [facility] [id number] Chest Problem Common tightness [facility] [id number] Acute pain Problem Com mon of left [facility] shoulder [facility] [id number] Essential Problem Comm on hypertensi Spirit on [facility] [id number] Morbid Problem Common (severe) Spirit obesity - [facility] due to [facility] [id number] Difficulty Problem Co mmon sleeping Spirit [facility] [id number] Elevated Problem Comm on serum Spirit creatinine [facility] [id number] Morbid Problem Common obesity [facility] [id number] Anxiety Problem Common [facility] [id number] Left-sided Problem Co mmon thoracic [facility] back pain, - [facility] unspecifie [facility] chronicity Medica [facility] [id number] Dietary Problem Commo n counseling Spirit and - [facility] surveillan [facility] [id number] Pain in Problem Common left Spirit shoulder [facility] [id number] Bilateral Problem Co mmon [id number] carpal Spirit tunnel - [facility] syndrome [facility] Allergies, Adverse Reactions, Alerts Allergy Allergy Status Severity Reaction(s) Onset Inactive Treating Comm ents Source Name Type Date Date Clinician NO KNOWN Drug Active Univers ALLERGIE Class ity of S [facility] Social History Social Habit Start Date Stop Date Quantity Comments Source History of Tobacco [facility] - [facility] Use [facility] Sex Assigned At Common Sp alyssa - [facility] Exposure to 2022-03-01 2022-03-11 Not sure [facility] SARS-CoV-2 (event) 00:00:00 12:53:00 [facility] Tobacco use and 2019-12-08 2019-12-08 Never used [facility] exposure 00:00:00 00:00:00 Medical Branch Smoking Status Start Date Stop Date Source Unknown if ever smoked [facility] Never Smoker [facility] - [facility] Medications Ordered Filled Start Stop Current Ordering Indication Dosage Frequency Signature Comments Components Source Medication Medication Date Date Medication? Clinician (SIG) Name Name methylPREDN Yes [id number] Take by [facility] ISolone 03-12 mouth ity of mg tablets 00:00: [place]INSTRU [place] 00 CTIONS. Medical follow Branch package directions dexamethaso No 10mg 10 mg, Uni vers ne 03-11 Intramuscu ity of (DECADRON 21:00: 21:00 lar, ONCE, [place] PHOSPHATE) 00 :00 1 dose, On Med ical injection Wed03/11/22 Bran ch 10 mg at 1600, Routine ketorolac No 30mg 30 mg, Unive rs (TORADOL) 03-11 Intramuscu ity of injection 21:00: 21:43 lar, ONCE, [place] 30 mg 00 :00 1 dose, On Medical Wed03/11/22 Branch at 1600, GASPER acetaminoph 2021- No 1{tbl} Take 1 U nivers en-codeine 03-11 tablet by ity of (TYLENOL-CO 16:17: 00:[place] DE[place] #3[place] 43 :00 every 4 Medical 300-30 mg (four) Branch tablet hours as needed. ketorolac Yes [id number] 10mg Take 1 U nivers 10 mg 03-11 tablet by ity of tablet 00:00: mouth [place] 00 every 6 Medical (six) Branch hours as needed for Pain (scale 1-3) or Pain (scale 4-6). traMADoL 50 2021- No [id number] 50mg Take 1 Uni vers mg tablet 03-11 tablet by ity of 00:00: 04:59 mouth [place] 00 :00 every 6 Medical (six) Branch hours as needed for Pain (scale 4-6) or Pain (scale 7-10) for up to 7 days. Indication s: acute pain acetaminoph 2019-10 Yes 1{tbl} Take 1 Un janet en-codeine 2-31 tablet by ity of (TYLENOL-CO 22:23: mouth [place] DEINE #3) 28 every 4 Medical 300-30 mg (four) Branch tablet hours as needed. acetaminoph 2019-10 Yes 1{tbl} Take 1 Un janet en-codeine 2-31 tablet by ity of (TYLENOL-CO 22:23: mouth [place] DEINE #3) 28 every 4 Medical 300-30 mg (four) Branch tablet hours as needed. LISINOPRIL 2019-10- No 10mg Take 10 mg Univers ORAL 31 by mouth ity of 21:43: 00:00 daily. [place] 00 :00 Medical Branch acetaminoph 2019-10 Yes 1{tbl} Take 1 Un janet en-codeine 2-31 tablet by ity of (TYLENOL-CO 16:23: mouth [place] DEINE #3) 28 every 4 Medical 300-30 mg (four) Branch tablet hours as needed. methylPREDN 2019-10 Yes [id number] Take by [facility] 4 [id number] mouth ity of mg tablets 00:00: [place]-INSTRU [place] 00 CTIONS. Medical follow Branch package directions methylPREDN 2019-10 Yes [id number] Take by [facility] 4 [id number] mouth ity of mg tablets 00:00: SEE-INSTRU [place] 00 CTIONS. Medical follow Branch package directions methylPREDN 2019-10 Yes [id number] Take by [facility] 4 - [id number] mouth ity of mg tablets 00:00: SEE-INSTRU [place] 00 CTIONS. Medical follow Branch package directions methylPREDN 2019-10- No [id number] Take by [facility] 4 03-11 [id number] mouth ity o f mg tablets 00:00: 00:00 SEE-INSTRU [place] 00 :00 CTIONS. Medical follow Branch package directions dexamethaso 2019-10 Yes 6mg 6 mg, IV Un janet ne 2-30 Push, ity of (DECADRON 15:00: DAILY, [place] PHOSPHATE) 00 First dose Med ical injection 6 (after Branch mg last reorder) on Wed10/09/20 at 0900, Until Discontinu ed, Routine enoxaparin 2019-10 Yes 40mg 40 mg, Unive rs (LOVENOX) 2-30 Subcutaneo ity of injection 15:00: [place], [place]ILY, [place] 40 mg 00 First dose Medical on Wed Branch 10/09/20 at 0900, Until Discontinu ed, Routine codeine-gua 2019-10 Yes 10mL 10 mL, Univ ers ifenesin 2-30 Oral, ity of (ROBITUSSIN 05:17: Q6HPRN, Alexandr as AC) 10-100 40 Starting Medic al mg/5 mL [facility] solution 10 10/08/20 mL at 2317, Until Discontinu ed, Routine, Cough albuterol 2019-10 Yes 2{puff} 2 Puff, Un janet (VENTOLIN) 2-30 Inhalation ity of inhaler 2 05:17: , Q6HPRN, Alexandr as Puff 32 Starting [facility] 10/08/20 at 2317, Until Discontinu ed, Routine, Wheezing, Shortness of Breath, Bronchospa sm, Chest tightness< br>Is this order for a patient with suspected or confirmed COVID-19 infection? Yes ondansetron 2019-10 Yes 4mg 4 mg, Slow Univers (ZOFRAN 2-30 IV Push, ity of (PF)) 05:15: Q6HPRN, [place] injection 4 58 Starting Medi alma [place] mg [facility] 10/08/20 at 2315, Until Discontinu ed, Routine, Nausea and Vomiting (N/V) traMADoL 2019-10- No 50mg 50 mg, Univer s (ULTRAM) 2-30 10-11 Oral, ity of tablet 50 05:15: 05:14 Q8HPRN, [place] mg 54 :54 Starting [facility] 10/08/20 at 2315, Until Jessica 10/10/20 at 2314, Routine, Pain (scale 4-6) acetaminoph 2019-10 Yes 650mg 650 mg, Un janet en 2-30 Oral, ity of (TYLENOL) 05:15: Q6HPRN, [place] tablet 650 52 Starting Medic al mg Tu Branch 10/08/20 at 2315, Until Discontinu ed, Routine, Pain (scale 1-3) dexamethaso 2019-10- No 10mg 10 mg, IV Univers ne 210-09 Push, ity of (DECADRON 04:45: 03:49 ONCE, [place] PHOS[place]ATE[place] 00 :00 dose, [facility] Medi alma [facility] injection 10/08/20 Branch 10 mg at 2245, STAT azithromyci 2019-10- No 500mg 500 mg, IV Univers n 10-09 Piggyback, ity of (ZITHROMAX) 04:45: 04:49 ONCE, 1 [place] 500 mg in 00 :00 dose, [facility] Medic al NaCl 0.9% 10/08/20 Branch (NS) 250 mL at 2245, VIAL-MATE 250 IV mL
Reas piggyback on for Anti-Infec tive: Documented Infection< br>Documen megan Infection Site: Respirator y
Durat ion of Therapy: 7 days acetaminoph 2019-10- No 1000mg 1,000 mg, Univers en 10-09 Oral, ity of (TYLENOL) 01:45: 01:14 ONCE, [place] tablet 00 :00 dose, [facility] 1,000 mg 10/08/20 Branch at 1945, Routine ibuprofen 2019-10- No 800mg 800 mg, Uni vers (IBU) 10-09 Oral, ity of tablet 800 01:45: 01:14 ONCE, 1 Alexandr as mg 00 :00 dose, [facility] Medical 10/08/20 Branch at 1945, GASPER diclofenac 2019-0 Yes [id number] 75mg Take 1 Univers 75 mg EC 6-15 9107 tablet by ity of tablet 00:00: mouth 2 [place] (two) Medical times Branch daily with meals. diclofenac 2019-0 Yes [id number] 75mg Take 1 Univers 75 mg EC 6-15 9107 tablet by ity of tablet 00:00: mouth 2 [place] (two) Medical times Branch daily with meals. diclofenac 2020-0 Yes [id number] 75mg Take 1 Univers 75 mg EC 6-15 9107 tablet by ity of tablet 00:00: mouth 2 [place] (two) Medical times Branch daily with meals. diclofenac 2020-0 Yes [id number] 75mg Take 1 Univers 75 mg EC 6-15 9107 tablet by ity of tablet 00:00: mouth 2 [place] (two) Medical times Branch daily with meals. diclofenac 2020-0 Yes [id number] 75mg Take 1 Univers 75 mg EC 6-15 9107 tablet by ity of tablet 00:00: mouth 2 [place] (two) Medical times Branch daily with meals. diclofenac 2020-0 2- No [id number] 75mg Take 1 Univers 75 mg EC 6-15 06-01 9107 tablet by ity o f tablet 00:00: 00:00 mouth 2 [place] 00 :00 (two) Medical times Branch daily with meals. diclofenac 2020-0 Yes [id number] 75mg Take 1 Univers 75 mg EC 5-22 9107 tablet by ity of tablet 00:00: mouth [place] (two) Medical times Branch daily with meals. diclofenac 2020-0 Yes [id number] 75mg Take 1 Univers 75 mg EC 5-22 9107 tablet by ity of tablet 00:00: mouth [place] (two) Medical times Branch daily with meals. diclofenac 2020-0 2020- No [id number] 75mg Take 1 Univers 75 mg EC 5-22 12-31 9107 tablet by ity o f tablet 00:00: 00:[address] 00 :00 (two) Medical times Branch daily with meals. diclofenac 2020-0 Yes [id number] 75mg Take 1 Univers 75 mg EC 3-19 9107 tablet by ity of tablet 00:00: mouth [place] (two) Medical times Branch daily with meals. diclofenac 2020-0 Yes [id number] 75mg Take 1 Univers 75 mg EC 3-19 9107 tablet by ity of tablet 00:00: mouth 2 [place] (two) Medical times Branch daily with meals. diclofenac 2020-0 Yes [id number] 75mg Take 1 Univers 75 mg EC 3-19 9107 tablet by ity of tablet 00:00: mouth 2 [place] (two) Medical times Branch daily with meals. diclofenac 2020-0 2020- No [id number] 75mg Take 1 Univers 75 mg EC 3-19 05-22 9107 tablet by ity o f tablet 00:00: 00:00 mouth 2 [place] 00 :00 (two) Medical times Branch daily with meals. LISINOPRIL 0 Yes Take by [facility] ORAL 8-30 mouth. ity of 14:13: [address] acetaminoph Yes 1{tbl} Take 1 Un janet en-codeine 8-30 tablet by ity of (TYLENOL-CO 14:13: mouth [place] DEINE #3) 17 every 4 Medical 300-30 mg (four) Branch tablet hours as needed. LISINOPRIL Yes Take by [facility] [place] [facility] ers ORAL 8-30 mouth. ity of 14:13: [address] acetaminoph Yes 1{tbl} Take 1 Un janet en-codeine 8-30 tablet by ity of (TYLENOL-CO 14:13: mouth [place] DEINE #3) 17 every 4 Medical 300-30 mg (four) Branch tablet hours as needed. LISINOPRIL Yes Take by [facility] [place] [facility] ORAL 8-30 mouth. ity of 14:13: [address] acetaminoph Yes 1{tbl} Take 1 Un janet en-codeine 8-30 tablet by ity of (TYLENOL-CO 14:13: mouth [place] DEINE #3) 17 every 4 Medical 300-30 mg (four) Branch tablet hours as needed. LISINOPRIL 2018-0 Yes Take by [facility] [place] [facility] ORAL 8-30 mouth. ity of 14:13: [address] acetaminoph Yes 1{tbl} Take 1 Un janet en-codeine 8-30 tablet by ity of (TYLENOL-CO 14:13: mouth [place] DEINE #3) 17 every 4 Medical 300-30 mg (four) Branch tablet hours as needed. LISINOPRIL 2018-0 Yes Take by [facility] [place] [facility] ORAL 8-30 mouth. ity of 14:13: [address] acetaminoph Yes 1{tbl} Take 1 Un janet en-codeine 8-30 tablet by ity of (TYLENOL-CO 14:13: mouth [place] DEINE #3) 17 every 4 Medical 300-30 mg (four) Branch tablet hours as needed. LISINOPRIL 2018-0 Yes Take by [facility] [place] [facility] ORAL 8-30 mouth. ity of 14:13: [address] acetaminoph 2019-0 Yes 1{tbl} Take 1 Un janet en-codeine 8-30 tablet by ity of (TYLENOL-CO 14:13: mouth [place] DEINE #3) 17 every 4 Medical 300-30 mg (four) Branch tablet hours as needed. LISINOPRIL 2018-0 Yes Take by [facility] [place] [facility] ORAL 8-30 mouth. ity of 14:13: [address] LISINOPRIL 2019-0 Yes Take by [facility] [place] [facility] ORAL 8-30 mouth. ity of 14:13: [address] acetaminoph 2018-0 Yes 1{tbl} Take 1 Un janet en-codeine 8-30 tablet by ity of (TYLENOL-CO 14:13: mouth [place] DEINE #3) 17 every 4 Medical 300-30 mg (four) Branch tablet hours as needed. LISINOPRIL 2018-0 Yes Take by [facility] [place] [facility] ORAL 8-30 mouth. ity of 14:13: [address] acetaminoph 2018- Yes 1{tbl} Take 1 Un janet en-codeine 8-30 tablet by ity of (TYLENOL-CO 14:13: mouth [place] DEINE #3) 17 every 4 Medical 300-30 mg (four) Branch tablet hours as needed. acetaminoph 0 Yes 1{tbl} Take 1 Un janet en-codeine 8-30 tablet by ity of (TYLENOL-CO 14:13: mouth [place] DEINE #3) 17 every 4 Medical 300-30 mg (four) Branch tablet hours as needed. LISINOPRIL 2019-0 Yes Take by [facility] [place] [facility] ORAL 8-30 mouth. ity of 14:13: [address] acetaminoph 2018-0 Yes 1{tbl} Take 1 Un janet en-codeine 8-30 tablet by ity of (TYLENOL-CO 14:13: mouth [place] DEINE #3) 17 every 4 Medical 300-30 mg (four) Branch tablet hours as needed. LISINOPRIL 2019-0 Yes Take by [facility] [place] [facility] ORAL 8-30 mouth. ity of 14:13: [address] acetaminoph 2018-0 Yes 1{tbl} Take 1 Un janet en-codeine 8-30 tablet by ity of (TYLENOL-CO 14:13: mouth [place] DEINE #3) 17 every 4 Medical 300-30 mg (four) Branch tablet hours as needed. LISINOPRIL 0 Yes Take by [facility] [place] [facility] ORAL 8-30 mouth. ity of 14:13: [address] acetaminoph [address] Yes 1{tbl} Take 1 Un janet en-codeine 8-30 tablet by ity of (TYLENOL-CO 14:13: mouth [place] DEINE #3) 17 every 4 Medical 300-30 mg (four) Branch tablet hours as needed. LISINOPRIL 0 Yes Take by [facility] [place] [facility] ORAL 8-30 mouth. ity of 14:13: [address] acetaminoph Yes 1{tbl} Take 1 Un janet en-codeine 8-30 tablet by ity of (TYLENOL-CO 14:13: mouth [place] DEINE #3) 17 every 4 Medical 300-30 mg (four) Branch tablet hours as needed. methylPREDN 2019-0 Yes [id number] Take by [facility] [phone] mouth ity of (MEDROL, 00:00: SEE-INSTRU Alexandr as LANEY,) 4 mg 00 CTIONS. Medica l tablets follow Branch package directions methylPREDN 2019-0 Yes [id number] Take by [facility] [phone] mouth ity of (MEDROL, 00:00: SEE-INSTRU Alexandr as LANEY,) 4 mg 00 CTIONS. Medica l tablets follow Branch package directions methylPREDN 2019-0 Yes [id number] Take by [facility] [phone] mouth ity of (MEDROL, 00:00: SEE-INSTRU [place] as LANEY,) 4 mg 00 CTIONS. Medica l tablets follow Branch package directions methylPREDN 2019-0 Yes [id number] Take by [facility] 8-30 9107 mouth ity of (MEDROL, 00:00: SEE-INSTRU [place] as LANEY,) 4 mg 00 CTIONS. Medica l tablets follow Branch package directions methylPREDN 2019-0 Yes [id number] Take by [facility] ISolone 8-30 9107 mouth ity of (MEDROL, 00:00: SEE-INSTRU [place] LANEY,) 4 mg 00 CTIONS. Medica l tablets follow Branch package directions methylPREDN 2019-0 Yes [id number] Take by [facility] 06-09 9107 mouth ity of (MEDROL, 00:00: SEE-INSTRU [place] LANE[place],) 4 mg 00 CTIONS. Medica l tablets follow Branch package directions methylPREDN 2019-0 Yes [id number] Take by [facility] 06-09 9107 mouth ity of (MEDROL, 00:00: SEE-INSTRU [place] as LANEY,) 4 mg 00 CTIONS. Medica l tablets follow Branch package directions methylPREDN 2019-0 Yes [id number] Take by [facility] 06-09 9107 mouth ity of (MEDROL, 00:00: SEE-INSTRU [place] as LANEY,) 4 mg 00 CTIONS. Medica l tablets follow Branch package directions methylPREDN 2018-0 Yes [id number] Take by [facility] 06-09 9107 mouth ity of (MEDROL, 00:00: SEE-INSTRU [place]r as LANEY,) 4 mg 00 CTIONS. Medica l tablets follow Branch package directions methylPREDN 2019-0 Yes [id number] Take by [facility] 06-09 9107 mouth ity of (MEDROL, 00:00: SEE-INSTRU Alexandr as LANEY,) 4 mg 00 CTIONS. Medica l tablets follow Branch package directions methylPREDN 2018-0 Yes [id number] Take by [facility] 06-09 9107 mouth ity of (MEDROL, 00:00: SEE-INSTRU [place] as LANEY,) 4 mg 00 CTIONS. Medica l tablets follow Branch package directions methylPREDN 2019-0 Yes [id number] Take by [facility] 06-09 9107 mouth ity of (MEDROL, 00:00: SEE-INSTRU [place]r as LANEY,) 4 mg 00 CTIONS. Medica l tablets follow Branch package directions methylPREDN 2019-0 Yes [id number] Take by [facility] 06-09 9107 mouth ity of (MEDROL, 00:00: SEE-INSTRU Alexandr as LANEY,) 4 mg 00 CTIONS. Medica l tablets follow Branch package directions methylPREDN 20190 2020- No [id number] Take by [facility] 06-09 9107 mouth ity of (MEDROL, 00:00: 00:00 [place],) 4 mg 00 :00 CTIONS. Medica l tablets follow Branch package directions Lisinopril/ Lisinopril/ No 1{table QD Lisinopril HCTZ HCTZ t} /HCTZ 10/12.5 mg 10/12.5 mg 10/12.5 mg Lisinopril- Lisinopril- No Lisinopril hydroCHLORO hydroCHLORO -hydroCHLO thiazide thiazide ROthiazide 10-12.5 MG 10-12.5 MG 10-12.5 MG Lisinopril/ Lisinopril/ No 1{table QD Lisinopril HCTZ HCTZ t} /HCTZ 10/12.5 mg 10/12.5 mg 10/12.5 mg Lisinopril/ Lisinopril/ No 1{table QD Lisinopril HCTZ HCTZ t} /HCTZ 10/12.5 mg 10/12.5 mg 10/12.5 mg Lisinopril- Lisinopril- No Lisinopril hydroCHLORO hydroCHLORO -hydroCHLO thiazide thiazide ROthiazide 10-12.5 MG 10-12.5 MG 10-12.5 MG Lisinopril/ Lisinopril/ No 1{table QD Lisinopril HCTZ HCTZ t} /HCTZ 10/12.5 mg 10/12.5 mg 10/12.5 mg Lisinopril- Lisinopril- No Lisinopril hydroCHLORO hydroCHLORO -hydroCHLO thiazide thiazide ROthiazide 10-12.5 MG 10-12.5 MG 10-12.5 MG Lisinopril/ Lisinopril/ No 1{table QD Lisinopril HCTZ HCTZ t} /HCTZ 10/12.5 mg 10/12.5 mg 10/12.5 mg Lisinopril- Lisinopril- No Lisinopril hydroCHLORO hydroCHLORO -hydroCHLO thiazide thiazide ROthiazide 10-12.5 MG 10-12.5 MG 10-12.5 MG Lisinopril/ Lisinopril/ No QD Lisinopril HCTZ HCTZ /HCTZ 10/12.5 mg 10/12.5 mg 10/12.5 mg Lisinopril/ Lisinopril/ 2019- No Laurie 1 tablet Common HCTZ HCTZ 11-30 [facility] 00:00 - [facility] :00 [facility] Vital Signs Vital Name Observation Time Observation Value Comments Source blood pressure 2022-07-22 11:10:00 118 mm[Hg] [facility] systolic [facility] blood pressure 2022-07-22 11:10:00 73 mm[Hg] [facility] - diastolic [facility] height 2022-07-22 11:10:00 58.75 [in_i] [facility] weight 2022-07-22 11:10:00 237.4 [lb_av] [facility] temperature 2022-07-22 11:10:00 97.3 [degF] [facility] bmi 2022-07-22 11:10:00 48.35 kg/m2 [facility] oximetry 2022-07-22 11:10:00 100 % [facility] respiratory rate 2022-07-22 11:10:00 18 /min Comm on [facility] blood pressure 2022-06-23 11:10:00 127 mm[Hg] [facility] systolic [facility] blood pressure 2022-06-23 11:10:00 71 mm[Hg] [facility] diastolic [facility] height 2022-06-23 11:10:00 58.75 [in_i] [facility] weight 2022-06-23 11:10:00 233.1 [lb_av] [facility] temperature 2022-06-23 11:10:00 98.0 [degF] [facility] bmi 2022-06-23 11:10:00 47.48 kg/m2 [facility] respiratory rate 2022-06-23 11:10:00 17 /min Comm on [facility] Systolic blood 2022-03-11 21:49:44 135 mm[Hg] Univer sity of pressure [facility] Diastolic blood 2022-03-11 21:49:44 83 mm[Hg] Unive rsity of pressure [facility] Heart rate 2022-03-11 21:49:44 72 /min Universi ty [facility] Respiratory rate 2022-03-11 21:49:44 16 /min [facility] acute hospital Oxygen saturation in 2022-03-11 21:49:44 99 /min [facility] blood by [facility] Pulse oximetry Branch Body temperature 2022-03-11 17:59:00 36.17 Lennie [facility] Body height 2022-03-11 17:59:00 147.3 cm Universi [facility] [place] Body weight 2022-03-11 17:59:00 107 kg [facility] [place] BMI 2022-03-11 17:59:00 49.30 kg/m2 [facility] height 2021-11-20 08:40:00 58.75 [in_i] [facility] weight 2021-11-20 08:40:00 232.5 [lb_av] [facility] temperature 2021-11-20 08:40:00 98.1 [degF] [facility] bmi 2021-11-20 08:40:00 47.35 kg/m2 [facility] oximetry 2021-11-20 08:40:00 100 % [facility] respiratory rate 2021-11-20 08:40:00 18 /min Comm on [facility] blood pressure 2021-11-20 08:40:00 132 mm[Hg] Common [facility] - systolic [facility] blood pressure 2021-11-20 08:40:00 68 mm[Hg] Common [facility] - diastolic [facility] height 2021-08-05 11:10:00 58.75 [in_i] Common [facility] weight 2021-08-05 11:10:00 235 [lb_av] [facility] temperature 2021-08-05 11:10:00 97.7 [degF] Common [facility] bmi 2021-08-05 11:10:00 47.86 kg/m2 Common S pirit - [facility] respiratory rate 2021-08-05 11:10:00 18 /min Comm on [facility] blood pressure 2021-08-05 11:10:00 137 mm[Hg] [facility] - systolic [facility] blood pressure 2021-08-05 11:10:00 81 mm[Hg] [facility] - diastolic [facility] Heart rate 2020-10-10 14:30:00 60 /min Universi ty of [facility] Respiratory rate 2020-10-10 14:30:00 27 /min Univ ersity of [facility] Oxygen saturation in 2020-10-10 14:30:00 90 /min [facility] [facility] Arterial blood by [facility] Pulse oximetry Branch Systolic blood 2020-10-10 14:15:00 117 mm[Hg] Univer sity of pressure [facility] Diastolic blood 2020-10-10 14:15:00 57 mm[Hg] Unive rsity of pressure [facility] Body temperature 2020-10-10 14:15:00 37.11 Lennie Univ ersity of [facility] Body weight 2020-10-10 11:00:00 95.709 kg [facility] BMI 2020-10-10 11:00:00 45.66 kg/m2 [facility] Body height 2020-10-09 05:11:00 144.8 cm [facility]i [facility] Systolic blood 2019-12-28 15:25:00 115 mm[Hg] Univer sity of pressure [facility] Diastolic blood 2019-12-28 15:25:00 77 mm[Hg] Unive rsity of pressure [facility] Body height 2019-12-28 15:25:00 144.8 cm Universi ty of [facility] Body weight 2019-12-28 15:25:00 93.441 kg [facility] BMI 2019-12-28 15:25:00 44.58 kg/m2 [facility] Systolic blood 2019-12-08 14:49:00 115 mm[Hg] Univer sity of pressure [facility] Diastolic blood 2019-12-08 14:49:00 77 mm[Hg] Unive rsity of pressure [facility] Heart rate 2019-12-08 14:49:00 71 /min [facility] Respiratory rate 2019-12-08 14:49:00 18 /min Univ ersity of [facility] Body height 2019-12-08 14:49:00 144.8 cm [facility] Body weight 2019-12-08 14:49:00 93.441 kg [facility]i [facility] BMI 2019-12-08 14:49:00 44.58 kg/m2 [facility] Diastolic blood 2019-06-09 14:11:00 87 mm[Hg] Unive rsity of pressure [facility] Heart rate 2019-06-09 14:11:00 75 /min Universi ty [facility] Respiratory rate 2019-06-09 14:11:00 18 /min Univ ersity of [facility] Body height 2019-06-09 14:11:00 144.8 cm Universi ty of [facility] Body weight 2019-06-09 14:11:00 93.441 kg Universi ty [facility] BMI 2019-06-09 14:11:00 44.58 kg/m2 [facility] Systolic blood 2019-06-09 14:11:00 120 mm[Hg] [facility] Procedures Procedure Date / Time Performing Clinician Source Performed DUPLEX VENOUS LEG RIGHT 2022-03-11 20:25:00 Gianni Oreilly [facility] - BY VASCULAR LAB [facility] XR KNEE <3 VW RIGHT 2022-03-11 20:05:37 Gianni Oreilly [facility] CONSENT/REFUSAL FOR 2022-03-11 17:56:26 Doctor Unassigned, No [facility] Name [facility] NOTICE OF PRIVACY 2022-03-11 17:52:58 Doctor Unassigned, No [facility] PRACTICES Name [facility] TROPONIN I 2020-10-10 10:26:00 [facility] COMP. METABOLIC PANEL 2020-10-10 10:26:00 Nuzhat Dangelo [facility] ([id number]) [facility] CBC WITH DIFF 2020-10-10 10:26:00 [facility] PNEUMOCOCCAL ANTIGEN 2020-10-09 14:29:00 Antolin [facility] TROPONIN I 2020-10-09 09:35:00 [facility] COMP. METABOLIC PANEL 2020-10-09 09:35:[address] [facility] ([id number]) Medical Branch CBC WITH DIFF 2020-10-09 09:35:00 [facility] D-DIMER 2020-10-09 09:35[facility] 2020-10-09 09:[facility] (MOLECULAR 2020-10-09 03:40:00 Lexi Miranda [facility] TESTING [facility] NUCLEIC ACID AMPLIFICATION) URINALYSIS 2020-10-09 02:07:00 [facility] 1 VW 2020-10-09 01:11:12 Ruben [facility] ADC,CLC OR LCC ONLY - 2020-10-09 01:08:00 Lexi Miranda [facility] INFLUENZA A & B DIRECT Medical B ranch ANTIGEN COVID-19 (ID NOW RAPID 2020-10-09 01:08:00 Ruben Lexi [facility] TESTING) Medical Branch BASIC METABOLIC PANEL 2020-10-09 01:05:00 Lexi Miranda [facility] (NA, K, CL, CO2, Medical Branch GLUCOSE, BUN, CREATININE, CA) CBC WITH DIFF 2020-10-09 01:05:00 Lexi Miranda [facility] CONSENT/REFUSAL FOR 2020-10-08 23:49:16 Doctor Unassigned, No [facility]MENT Name Medical Branch NOTICE OF PRIVACY 2020-10-08 23:48:59 Doctor Unassigned, No [facility] PRACTICES Name Medical Branch EXTERNAL PROVIDER 2019-12-22 05:01:00 Doctor Unassigned, No [facility] RECORDS Name Medical Branch REFERRAL- 2019-12-08 06:01:00 Doctor Unassigned, No [facility] REQUEST/RESPONSE Name Medical Branch Encounters Start End Encounter Admission Attending Care Care Encounter Source Date/Time Date/Time Type Type Clinicians Facility Department ID 2022-06-18 Outpatient Bah, STLMLC STLMLC [id number] Common 15:13:00 Stephen [facility] 2021-11-20 Outpatient Bah, STLMLC STLMLC [id number] Common 08:49:00 Stephen [facility] 2021-11-19 Outpatient Bah, STLMLC STLMLC [id number] Common 11:12:02 Stephen [facility] 2021-11-12 Outpatient Bah, STLMLC STLMLC [id number] Common 11:37:00 Stephen [facility] 2021-11-05 Outpatient Bah, STLMLC STLMLC [id number] Common 13:09:07 Stephen 67840 [facility] 2021-11-05 Outpatient Bah, STLMLC STLMLC [id number] Common 13:08:55 Stephen 34078 [facility] 2021-11-05 Outpatient STLMLC STLMLC [id number] Common 12:43:11 26616 [facility] 2021-11-05 Outpatient STLMLC STLMLC [id number] Common 12:42:55 11890 [facility] 2021-11-05 Outpatient STLMLC STLMLC [id number] Common 12:42:09 [id number] [facility] 2021-11-05 Outpatient STLMLC STLMLC [id number] Common 12:19:10 15620 [facility] 2021-11-05 Outpatient STLMLC STLMLC [id number] Common 12:08:11 [id number] [facility] 2021-11-05 Outpatient Millender, STLMLC STLMLC [id number] Common 11:53:30 Laurie [id number] [facility] 2021-11-05 Outpatient Millender, STLMLC STLMLC [id number] Common 11:52:51 Laurie 31958 [facility] 2021-08-09 Emergency [facility] [id number] Univers 13:43:57 ity of [facility] 2022-07-22 2022-07-22 OFFICE STLMLC STLMLC [id number] Co mmon 00:00:00 00:00:00 VISIT EST Spir it PT LEVEL 3 - [facility] 2022-06-23 2022-06-23 OFFICE STLMLC STLMLC [id number] Co mmon 00:00:00 00:00:00 VISIT EST Spir it PT LEVEL 3 - [facility] 2022-05-18 2022-05-18 (TEL) STLMLC STLMLC [id number] Co mmon 00:00:00 00:00:00 [facility] 2022-03-11 2022-03-11 Emergency X [facility] ERT [id number] Univers 13:01:00 17:13:00 GIANNI ity of [facility] 2022-03-11 2022-03-11 Emergency [facility] [id number] Univers 13:01:00 17:13:00 Gianni CHARLES [id number] ity of [place] 4.2.7.2.686 [facility] [phone] [facility] 084 Branch 2022-03-11 2022-03-11 Orders Doctor SHAMAR [id number] Univers 00:00:00 00:00:00 Only Unassigned, RODNEY [id number] [facility] 4.2.7.2.686 [facility] [phone] [facility] 009 Branch 2021-11-20 2021-11-20 OFFICE STLMLC STLMLC [id number] Co mmon 00:00:00 00:00:00 VISIT EST Spir it PT LEVEL 3 - [facility] 2021-08-05 2021-08-05 (TEL) STLMLC STLMLC [id number] Co mmon 00:00:00 00:00:00 [facility] 2021-08-05 2021-08-05 OFFICE STLMLC STLMLC [id number] Co mmon 00:00:00 00:00:00 VISIT Spirit ESTAB PT - [facility] LEVEL 2 [facility] 2021-05-13 2021-05-13 Outpatient STLMLC STLMLC [id number] Common 00:00:00 00:00:00 [facility] 2020-12-31 2020-12-31 Outpatient STLMLC STLMLC [id number] Common 00:00:00 00:00:00 [facility] 2020-10-28 2020-10-28 Outpatient STLMLC STLMLC [id number] Common 00:00:00 00:00:00 [facility] 2020-10-16 2020-10-16 Outpatient STLMLC STLMLC [id number] Common 00:00:00 00:00:00 [facility] 2020-10-14 2020-10-14 Transition Nicolette Austin [id number] Univers 00:00:00 00:00:00 of Care Elza Redd [id number] ity of [place] 4.2.7.2.686 [facility] [id number] [facility] 403 Branch 2020-10-08 2020-10-10 Hospital Miranda, Lexi [facility] 1.2.840. [id number] Univers 18:06:00 16:09:00 Encounter Nuzhat Dangelo [id number] ity of [place] 4.2.7.2.686 [facility] [phone] [facility] 080 Branch 2020-10-08 2020-10-08 Orders Doctor IBANEZ 1.2.840.114 [id number] Univers 00:00:00 00:00:00 Only Unassigned, RODNEY 350.1.13.10 ity of [place] [facility] 4.2.7.2.686 Alexandr [id number] [facility] 009 Branch 2020-07-19 2020-07-19 Outpatient STLMLC STLMLC [id number] Common 00:00:00 00:00:00 [facility] 2020-03-01 2020-03-01 Telephone Francisco [facility] [id number] Univers 00:00:00 00:00:00 Alexx Pearce [id number] it y of Surgical 4.2.7.2.686 Alexandr as Specialti [id number] Oh dical es 198 [facility] 2020-02-29 2020-02-29 [facility] [id number] Univers 00:00:00 00:00:00 Alexx Pearce 350.1.13.10 it y of Surgical 4.2.7.2.686 Alexandr as Specialti [phone] Oh dical es 198 [facility] 2020-01-09 2020-01-09 [facility] [id number] Common 11:00:00 11:00:00 t [facility] 2019-12-28 2019-12-28 Office [facility] [id number] Univers 10:22:37 10:37:41 Visit Alexx Pearce 350.1.13.10 it y of Surgical 4.2.7.2.686 Alexandr as Specialti [phone] Oh dical es 198 [facility] 2019-12-28 2019-12-28 [facility] [id number] Univers 10:30:00 10:30:00 ALEXX pemberton [facility] 2019-12-28 2019-12-28 Letter [facility] [id number] Univers 00:00:00 00:00:00 (Out) Alexx Pearce 350.1.13.10 it y of Surgical 4.2.7.2.686 Alexandr as Specialti [id number] Oh dical es 198 [facility] 2019-12-22 2019-12-22 Orders Doctor SHAMAR 1.2.840.114 [id number] Univers 00:00:00 00:00:00 Only Unassigned, RODNEY 350.1.13.10 ity of [place] [facility] 4.2.7.2.686 Alexandr as [id number] [address] 2019-12-08 2019-12-08 Office [facility] [id number] Univers 08:49:03 09:16:12 Visit Alexx Pearce 350.1.13.10 it y of Surgical 4.2.7.2.686 Alexandr as Specialti [phone] Oh dical es 198 [facility] 2019-12-08 2019-12-08 Outpatient R FRANCISCO [facility] [id number] [facility] 08:45:00 08:45:00 ALEXX ity of [facility] 2019-12-08 2019-12-08 Telephone Francisco [facility] 1.2.840.114 [id number] Univers 00:00:00 00:00:00 Alexx Pearce 350.1.13.10 it y of Surgical 4.2.7.2.686 Alexandr as Specialti [phone] Oh dical es 198 [facility] 2019-12-08 2019-12-08 Orders Doctor SHAMAR 1.2.840.114 [id number] Univers 00:00:00 00:00:00 Only Unassigned, RODNEY 350.1.13.10 ity of [place] [facility] 4.2.7.2.686 Alexandr as [id number] [address] 2019-12-06 2019-12-06 [facility] [id number] Common 10:40:00 10:40:00 [facility] Sp[address] [facility] 2019-08-10 2019-08-10 [facility] [id number] Common 10:14:00 10:14:00 [facility] [address] [facility] 2019-06-14 2019-06-14 [facility] [id number] Common 09:00:00 09:00:00 [facility] [address] [facility] 2019-06-09 2019-06-09 Office Singh, [facility] [id number] [facility] 08:55:19 09:42:20 Visit Alexx Pearce 350.1.13.10 it y of Surgical 4.2.7.2.686 Alexandr as Specialti [phone] Me dical es 198 [facility] 2019-06-09 2019-06-09 Telephone Claudette PRNUBIA [id number] Univers 00:00:00 00:00:00 Nik Charles 350.1.13.10 i ty of [place] 4.2.7.2.686 Laury Johnsonjacinto [id number] Oh dical nal 198 [facility] 2018-12-13 2018-12-13 Outpatient Rosalinda Tellezt [id number] Common 09:00:00 09:00:00 t [facility] [address] [facility] 2018-07-11 2018-07-11 [facility] [id number] Common 08:30:00 08:30:00 t [facility] [address] [facility] 2018-03-18 2018-03-18 [facility] [id number] Common 15:30:00 15:30:00 t [facility] [address] [facility] 2018-01-26 2018-01-26 [facility] [id number] Common 08:30:00 08:30:00 [facility] [address] [facility] Results Test Description Test Time Test Comments Results Result Comments Source CBC with Differential 2020-10-10 12:46:00 Test Item Value Reference Range Interpretation Comme nts WBC (test code = 6690-2) See_Comment [A utomated message] The system which ge nerated this result transmit megan reference range: 4.30 - 1 1.10 10*3/?L. The reference r shannon was not used to interpr et this result as normal/abnor mal. RBC (test code = 789-8) See_Comment [Au tomated message] The system which ge nerated this result transmit megan reference range: 3.93 - 5 .25 10*6/?L. The reference r shannon was not used to interpr et this result as normal/abnor mal. HGB (test code = 718-7) 12.1 g/dL 11.6-15 HCT (test code = 4544-3) 36.7 % 35.7-45.2 MCV (test code = 787-2) 82.5 fL 80.6-95.5 MCH (test code = 785-6) 27.2 pg 25.9-32.8 MCHC (test code = 786-4) 33.0 g/dL 31.6-35.1 RDW-SD (test code = 36000-1) 41.4 fL 39-49.9 RDW-CV (test code = 788-0) 13.7 % 12-15.5 PLT (test code = 777-3) See_Comment [Au tomated message] The system which ge nerated this result transmit megan reference range: 166 - 35 8 10*3/?L. The reference range was not used to interpret th is result as normal/abnormal . MPV (test code = 44967-9) 11.3 fL 9.5-12.9 NRBC/100 WBC (test code = See_Comment [ Automated message] The [id number]) system which ge nerated this result transmit megan reference range: 0.0 - 10 .0 /100 WBCs. The reference r shannon was not used to interpr et this result as normal/abnor mal. NRBC x10^3 (test code = <0.01 See_Comment [Au tomated message] The 1877088734) system which ge nerated this result transmit megan reference range: 10*3/?L. The reference range was not u sed to interpret this result as normal/abnormal . GRAN MAT (NEUT) % (test code 67.3 % = 770-8) IMM GRAN % (test code = 0.80 % 3298543720) LYMPH % (test code = 736-9) 19.2 % MONO % (test code = 5905-5) 12.7 % EOS % (test code = 713-8) 0.0 % BASO % (test code = 706-2) 0.0 % GRAN MAT x10^3(ANC) (test 3.19 10*3/uL 1.88-7.09 code = 7618039040) IMM GRAN x10^3 (test code = 0.04 10*3/uL 0-0.06 9351263590) LYMPH x10^3 (test code = 0.91 10*3/uL 1.32-3.29 L 731-0) MONO x10^3 (test code = 0.60 10*3/uL 0.33-0.92 742-7) EOS x10^3 (test code = <0.03 0.03-0.39 L 711-2) BASO x10^3 (test code = <0.03 0.01-0.07 704-7) Lab Interpretation (test Abnormal code = 34480-7) [facility] [id number] 11:48:00 Test Item Value Reference Range Interpretation Comments TROPONIN I (test <0.012 See_Comment [Automated code = 4378562421) message] The system which generated this result transmitted reference range : <=0.034 ng/mL. The reference range was not used to interpr et this result as normal/abnormal . VALERIY (test code = Equal or Less than VALERIY) 0.034 ng/ml---Normal ?Note: Cardiac troponin begins to rise 3-4 hours after the onset of ischemia. Repeat in 4-6 hours if the sample was drawn within 3-4 hours of the onset of the symptom and found normal. Between 0.035 and 0.120 ng/mL--- Borderline. Questionable myocardial injury or necrosis ? ?Note: Serial measurement may be necessary to confirm or exclude the diagnosis of myocardial injury or necrosis; Clinical correlation (symptoms, EKGs, imaging studies, and others) required; Repeat in 4-6 hours if clinically indicated. ? Equal or Higher than 0.121 ng/mL---Abnormal. Myocardial Injury or Necrosis Likely ? Biotin has been reported to cause a negative bias, interpret results relative to patient's use of biotin. ? Lab Interpretation Normal (test code = 21172-3) [facility] (03787)2020-10-10 11:41:00 Test Item Value Reference Range Interpretation Comments NA (test code = 141 mmol/L 135-145 7335421177) K (test code = 4.2 mmol/L 3.5-5 3840932831) CL (test code = 106 mmol/L 98-108 8829462368) CO2 TOTAL (test code = 26 mmol/L - 7424469568) AGAP (test code = 2-16 9575453252) BUN (test code = 20 mg/dL 7-23 7247900034) GLUCOSE (test code = 115 mg/dL 70-110 H 5749252571) CREATININE (test code = 1.10 mg/dL 0.5-1.04 H 3082645145) TOTAL BILI (test code = 0.7 mg/dL 0.1-1.2 7316887663) CALCIUM (test code = 9.2 mg/dL 8.6-10.6 8912485633) T PROTEIN (test code = 7.9 g/dL 6.3-8.2 9641674573) ALBUMIN (test code = 4.0 g/dL 3.5-5 6752223997) ALK PHOS (test code = 93 U/L 34-122 1251029993) ALTv (test code = 17 U/L 5-35 2-6) AST(SGOT) (test code = 34 U/L 13-40 5205744880) eGFR Calculation mL/min/1.73m2 (Non-) (test code = 6316209370) eGFR Calculation mL/min/1.73m2 () (test code = 6253510992) VALERIY (test code = VALERIY) Association of Glomerular Filtration Rate (GFR) and Staging of Kidney Disease* + --+ --+ ------+| GFR (mL/min/1.73 m2) ?| With Kidney Damage ?| ?Without Kidney Damage+ --------+ --------+ +| ?>90 ?| ?Stage one ?| ? Normal ?+ ---+ ---+ -------+| ?60-89 ?| ?Stage two ?| ? Decreased GFR ? + --+ --+ ------+| ?30-59 ?| ?Stage three ?| ? Stage three ? + --+ --+ ------+| ?15-29 ?| ?Stage four ? | ? Stage four ?+ ---+ ---+ -------+| ?<15 (or dialysis) ? ?| ?Stage five ? | ? Stage five ?+ ---+ ---+ -------+ *Each stage assumes the associated GFR level has been in effect for at least three months. ?Stages 1 to 5, with or without kidney disease, indicate chronic kidney disease. Notes: Determination of stages one and two (with eGFR >59mL/min/1.73 m2) requires estimation of kidney damage for at least three months as defined by structural or functional abnormalities of the kidney, manifested by either:Pathological abnormalities or Markers of kidney damage (including abnormalities in the composition of the blood or urine or abnormalities in imaging tests). Lab Interpretation Abnormal (test code = 31797-9) [facility]TIGEN [id number] 23:36:00 Test Item Value Reference Range Interpretation Comments Legionella Urinary Negative Negative Antigen (test code = 4141507590) VALERIY (test code = VALERIY) Negative for L. pneumophilia serogroup I antigen in urine suggesting no recent or current infection. Infection due to Legionella cannot be ruled out since other serogroups and species may cause disease. Furthermore, antigens may not be present in urine during early stage of infection, or the level of antigen present in urine may be below the detection limit of the test. Lab Interpretation (test Normal code = 65786-8) [facility] [id number] 23:36:00 Test Item Value Reference Range Interpretation Comments S. pneumoniae antigen (test code = Negative Negative 8672523886) Lab Interpretation (test code = Normal 06387-8) [facility]2020-[facility]-30 16:59:00 Test Item Value Reference Range Interpretation Comments Procalcitonin (test 0.04 ng/mL <0.07 code = 3872246937) VALERIY (test code = VALERIY) INTERPRETATION OF PROCALCITONIN RESULTS IN ADULTS >= 18 YEARS OF AGE Initiation and discontinuation of antibiotics on patients with suspected or confirmed Lower Respiratory Tract Infection in Adults >= 18 years of age. + +-------- --------+ + -----+|Procalcitonin |Interpretation ?|Antibiotic ? ? |Considerations ? |ng/mL ? | ?|recommendation | ? + +-------- --------+ + -----+| <0.1 ? | Bacterial ? ? ?| Strongly ? ? ?| ? | ?| infection very | discouraged ? | Overruling: ? | ?| unlikely ? ? ? | ? | ? Clinically unstable ? ? ? + +-------- --------+ + ? High risk for adverse ? ? | <0.25 ?| Bacterial ? ? ?| Discouraged ? | ? outcome ? | ?| infection ? ? ?| ? | ? SEE IMPORTANT NOTE ?| ?| unlikely ? ? ? | ? | ? + +-------- --------+ + -----+| >=0.25 ? ? ? | Bacterial ? ? ?| Encouraged ? ?| ? | ?| infection ? ? ?| ? | ? | ?| likely ? | ? | Consider treatment failure ?+ +------- ---------+ -+ if levels does not decrease | >0.5 ? | Bacterial ? ? ?| Strongly ? ? ?| appropriately ? | ?| infection very | encouraged ? ?| ? | ?| likely ? | ? | ? + +-------- --------+ + -----+ Discontinuation of antibiotics in high-acuity patients with suspected or confirmed sepsis in Adults >= 18 years of age. + +-------- --------+ + -----+|Procalcitonin |Interpretation ?|Antibiotic ? ? |Considerations ? |ng/mL ? | ?|recommendation | ? + +-------- --------+ + -----+| <0.25 ?| Bacterial ? ? ?| Strongly ? ? ?| ? | ?| infection very | discouraged ? | Overruling: ? | ?| unlikely ? ? ? | ? | ? Clinically unstable ? ? ? + +-------- --------+ + ? High risk for adverse ? ? | <0.5 or drop | Bacterial ? ? ?| Discouraged ? | ? outcome ? | >80% from ? ?| infection ? ? ?| ? | ? SEE IMPORTANT NOTE ?| highest PCT ?| unlikely ? ? ? | ? | ? | level ?| ?| ? | ? + +-------- --------+ + -----+| >=0.5 ?| Bacterial ? ? ?| Encouraged ? ?| ? | ?| infection ? ? ?| ? | ? | ?| likely ? | ? | Consider treatment failure ?+ +------- ---------+ -+ if levels does not decrease | >1.0 ? | Bacterial ? ? ?| Strongly ? ? ?| appropriately ? | ?| infection very | encouraged ? ?| ? | ?| likely ? | ? | ? + +-------- --------+ + -----+ Percentage of drop of Procalcitonin calculation for Discontinuation of antibiotics in high-acuity patients with suspected or confirmed sepsis in Adults >= 18 years of age. ? Procalcitonin highest{}-Procalcitonin current{}Delta Procalcitonin = x100% ? Procalcitonin current {} IMPORTANT NOTE: Procalcitonin may be elevated without bacterial infection by physiologic stress related to trauma, parks, chronic dialysis, metastatic cancer, surgery in the past seven days, malaria, some fungal infections, and some forms of vasculitis. The interpretation algorithm may not apply to patients with immunosuppression (equivalent of >10 mg of prednisone daily), HIV with CD4 cell count < 350 cells/mm3, active malignancy on systemic chemotherapy, solid organ transplant or hematopoietic stem cell transplantation, or hospital acquired pneumonia. Additionally, some clinical trials of procalcitonin have excluded patients with shock requiring vasopressor use, acute respiratory failure requiring mechanical ventilation, or those with known lung abscess/empyema. For further information please refer to:[email or web address] Lab Interpretation Normal (test code = 41959-4) [facility] COVID-19 [id number] 12:28:00 Test Item Value Reference Range Interpretation Comments SARS-CoV-2 NAAT (test Positive Not Detected A code = 31101-3) VALERIY (test code = VALERIY) [employer]Spot[employer] Aptima SARS-CoV-2 Assay is a nucleic acid amplification test intended for the qualitative detection of RNA from SARS-CoV-2 from nasopharyngeal (POULTRY OFFAL ICER) specimens. ?It is used under Emergency Use Authorization (EUA) by FDA. A positive result is indicative of the presence of SARS-CoV-2 RNA. ?Clinical correlation with patient history and other diagnostic information is necessary to determine patient infection status. A negative (Not Detected) result does not preclude SARS-CoV-2 infection. ?Clinical correlation with patient history and other diagnostic information should be used in patient management decisions. Invalid: Unable to generate a valid test result on this specimen. ?Please submit a new specimen for repeat testing if clinically indicated. Lab Interpretation Abnormal (test code = 76242-6) [id number] 11[facility]41:00 Test Item Value Reference Range Interpretation Comments TROPONIN I (test <0.012 See_Comment [Automated code = 0733395926) message] The system which generated this result transmitted reference range : <=0.034 ng/mL. The reference range was not used to interpr et this result as normal/abnormal . VALERIY (test code = Equal or Less than VALERIY) 0.034 ng/ml---Normal ?Note: Cardiac troponin begins to rise 3-4 hours after the onset of ischemia. Repeat in 4-6 hours if the sample was drawn within 3-4 hours of the onset of the symptom and found normal. Between 0.035 and 0.120 ng/mL--- Borderline. Questionable myocardial injury or necrosis ? ?Note: Serial measurement may be necessary to confirm or exclude the diagnosis of myocardial injury or necrosis; Clinical correlation (symptoms, EKGs, imaging studies, and others) required; Repeat in 4-6 hours if clinically indicated. ? Equal or Higher than 0.121 ng/mL---Abnormal. Myocardial Injury or Necrosis Likely ? Biotin has been reported to cause a negative bias, interpret results relative to patient's use of biotin. ? Lab Interpretation Normal (test code = 95116-9) [facility]. METABOLIC PANEL (39124)2020-10-09 11:32:00 Test Item Value Reference Range Interpretation Comments NA (test code = 139 mmol/L 135-145 6559632103) K (test code = 4.7 mmol/L 3.5-5 1666615905) CL (test code = 105 mmol/L 98-108 7004319487) CO2 TOTAL (test code = 25 mmol/L 23-31 9768320138) AGAP (test code = 2-16 1987522417) BUN (test code = 18 mg/dL 7-23 4722494391) GLUCOSE (test code = 156 mg/dL 70-110 H 8119402163) CREATININE (test code = 1.18 mg/dL 0.5-1.04 H 7891878427) TOTAL BILI (test code = 0.7 mg/dL 0.1-1.9 9410142659) CALCIUM (test code = 8.8 mg/dL 8.6-10.6 5352893930) T PROTEIN (test code = 7.6 g/dL 6.3-8.2 9173866706) ALBUMIN (test code = 3.9 g/dL 3.5-5 2265320259) ALK PHOS (test code = 96 U/L 34-122 2111720228) ALTv (test code = 15 U/L 5-35 1742-6) AST(SGOT) (test code = 36 U/L 13-40 2584664558) eGFR Calculation mL/min/1.73m2 (Non-) (test code = 4594675600) eGFR Calculation mL/min/1.73m2 () (test code = 1820452905) VALERIY (test code = VALERIY) Association of Glomerular Filtration Rate (GFR) and Staging of Kidney Disease* + --+ --+ ------+| GFR (mL/min/1.73 m2) ?| With Kidney Damage ?| ?Without Kidney Damage+ --------+ --------+ +| ?>90 ?| ?Stage one ?| ? Normal ?+ ---+ ---+ -------+| ?60-89 ?| ?Stage two ?| ? Decreased GFR ? + --+ --+ ------+| ?30-59 ?| ?Stage three ?| ? Stage three ? + --+ --+ ------+| ?15-29 ?| ?Stage four ? | ? Stage four ?+ ---+ ---+ -------+| ?<15 (or dialysis) ? ?| ?Stage five ? | ? Stage five ?+ ---+ ---+ -------+ *Each stage assumes the associated GFR level has been in effect for at least three months. ?Stages 1 to 5, with or without kidney disease, indicate chronic kidney disease. Notes: Determination of stages one and two (with eGFR >59mL/min/1.73 m2) requires estimation of kidney damage for at least three months as defined by structural or functional abnormalities of the kidney, manifested by either:Pathological abnormalities or Markers of kidney damage (including abnormalities in the composition of the blood or urine or abnormalities in imaging tests). Lab Interpretation Abnormal (test code = 71219-8) [id number] 11:19[facility]00 Test Item Value Reference Interpretation Comments Range D-DIMER (test code = See_Comment H [Autom ated 0675918119) message] The system which generated this result transmitted reference range : <0.41 ?g/mL (FEU). The reference range was not used to interpret this result as normal/abnormal . VALERIY (test code = This test may be VALERIY) used in conjunction with a clinical pretest probability (PTP) assessment model to exclude venous thromboembolism (VTE) in patients suspected of deep venous thrombosis (DVT) and pulmonary embolism (PE) A D-Dimer value less than 0.50 ?g/ml (FEU) has a negative predicative value of 96 to 100% (95% CI)and 97 to 100% (95% CI) as an aid in the diagnosis of deep vein thrombosis (DVT) and pulmonary embolism when there is low or moderate pretest probability of PE or DVT. D-Dimer values are expressed in initial fibrinogen equivalent units (FEU)" The assay results should be used with other information, including the clinical context, in forming a diagnosis. Lab Interpretation Abnormal (test code = 72773-5) [facility] [id number] 10:38:00 Test Item Value Reference Range Interpretation Comments WBC (test code = See_Comment [Automated 6690-2) message] The sy stem which generated this result transmitted reference range : 4.30 - 11.10 10*3/?L. The reference range was not used to interpret this result as normal/abnormal . RBC (test code = See_Comment [Automated 789-8) message] The sy stem which generated this result transmitted reference range : 3.93 - 5.25 10*6/?L. The reference range was not used to interpret this result as normal/abnormal . HGB (test code = 11.2 g/dL 11.6-15 L 718-7) HCT (test code = 33.0 % 35.7-45.2 L 4544-3) MCV (test code = 82.1 fL 80.6-95.5 787-2) MCH (test code = 27.9 pg 25.9-32.8 785-6) MCHC (test code = 33.9 g/dL 31.6-35.1 786-4) RDW-SD (test code = 41.6 fL 39-49.9 24115-5) RDW-CV (test code = 13.9 % 12-15.5 788-0) PLT (test code = See_Comment [Automated 777-3) message] The sy stem which generated this result transmitted reference range : 166 - 358 10*3/ ?L. The reference r shannon was not used to interpret this result as normal/abnormal . MPV (test code = 11.6 fL 9.5-12.9 42762-0) NRBC/100 WBC (test See_Comment [Automat ed code = 2861675076) message] The system which generated this result transmitted reference range : 0.0 - 10.0 /100 WBCs. The refer ence range was not u sed to interpret th is result as normal/abnormal . NRBC x10^3 (test code <0.01 See_Comment [Auto mated = 2435034946) message] The s ystem which generated this result transmitted reference range : 10*3/?L. The reference range was not used to interpret this result as normal/abnormal . GRAN MAT (NEUT) % 87.1 % (test code = 770-8) IMM GRAN % (test code 0.60 % = 0769925917) LYMPH % (test code = 9.8 % 736-9) MONO % (test code = 2.5 % 5905-5) EOS % (test code = 0.0 % 713-8) BASO % (test code = 0.0 % 706-2) GRAN MAT x10^3(ANC) 4.17 10*3/uL 1.88-7.09 (test code = 7018483789) IMM GRAN x10^3 (test 0.03 10*3/uL 0-0.06 code = 5145023280) LYMPH x10^3 (test code 0.47 10*3/uL 1.32-3.29 L = 731-0) MONO x10^3 (test code 0.12 10*3/uL 0.33-0.92 L = 742-7) EOS x10^3 (test code = <0.03 0.03-0.39 L 711-2) BASO x10^3 (test code <0.03 0.01-0.07 = 704-7) Lab Interpretation Abnormal (test code = 02366-1) [facility]00 Test Item Value Reference Range Interpretation Comments APPEARANCE (test code = Hazy Clear A 6269842854) COLOR (test code = Yellow Yellow 1922005808) PH (test code = 4.8-8.0 1613024033) SP GRAVITY (test code = 1.003-1.030 0884934881) GLU U QUAL (test code = Normal Normal 7993065802) BLOOD (test code = Negative Negative 1803425366) KETONES (test code = Negative Negative 5262206595) PROTEIN (test code = Negative Negative 2887-8) UROBILIN (test code = 4.0 mg/dL Normal A 0889771595) BILIRUBIN (test code = Negative Negative 2968544382) NITRITE (test code = Negative Negative 5296358090) LEUK LUC (test code = 25/uL Negative A 6862913722) RBC/HPF (test code = <1 See_Comment [Autom ated message] 3106719754) The system [employer] generated this result transmit megan reference range : 0 - 3 HPF. The refe rence range was not u sed to interpret th is result as normal/abnormal . WBC/HPF (test code = See_Comment [Autom ated message] 7130842348) The system [employer] generated this result transmit megan reference range : 0 - 5 HPF. The refe rence range was not u sed to interpret th is result as normal/abnormal . BACTERIA (test code = Few Negative A 7104524777) SQ EPITH (test code = HPF 0524568062) Lab Interpretation (test Abnormal code = 55134-2) [facility] - INFLUENZA A & B DIRECT [id number] 02:00:00 Test Item Value Reference Range Interpretation Comments Influenza A (test code = 66840-4) Negative Negative Influenza B (test code = 86031-0) Negative Negative Lab Interpretation (test code = Normal 06065-7) [facility] (ID NOW RAPID TESTING)2020-10-09 01:39:00 Test Item Value Reference Range Interpretation Comments SARS-CoV-2 Rapid ID NOW Not Detected Not Detected (test code = 91245-4) VALERIY (test code = VALERIY) ID NOW COVID-19 Assay is an isothermal nucleic acid amplification test intended for the qualitative detection of nucleic acid from SARS-CoV-2 viral RNA in nasopharyngeal (POULTRY OFFAL ICER) specimens. It is used under Emergency Use Authorization (EUA) by FDA. The limit of detection (LOD) of the assay is 125 Genome Equivalents/mL. A positive result is indicative of the presence of SARS-CoV-2 RNA. ?Clinical correlation with patient history and other diagnostic information is necessary to determine patient infection status. A negative (Not Detected) result does not preclude SARS-CoV-2 infection. In patients with clinical symptoms and other tests that are consistent with SARS-CoV-2 infection, negative results should be treated as presumptive negative and a new specimen should be tested with alternative PCR molecular test. Invalid: Please collect a new specimen for repeat patient testing if clinically indicated. Lab Interpretation Normal (test code = 19046-3) [facility] Metabolic Panel (NA, K, CL, CO2, GLUCOSE, BUN, CREATININE, CA)2020-10-09 01:34:00 Test Item Value Reference Range Interpretation Comments NA (test code = 137 mmol/L 135-145 1979349711) K (test code = 4.3 mmol/L 3.5-5 1433863985) CL (test code = 103 mmol/L 98-108 9758708096) CO2 TOTAL (test code = 25 mmol/L 23-31 3438578174) AGAP (test code = 2-16 2173218994) BUN (test code = 17 mg/dL 7-23 3069133660) GLUCOSE (test code = 107 mg/dL 70-110 1081685092) CREATININE (test code = 1.10 mg/dL 0.5-1.04 H 1782572243) CALCIUM (test code = 8.6 mg/dL 8.6-10.6 8893726174) eGFR Calculation mL/min/1.73m2 (Non-) (test code = 8342755275) eGFR Calculation mL/min/1.73m2 () (test code = 4644779145) VALERIY (test code = VALERIY) Association of Glomerular Filtration Rate (GFR) and Staging of Kidney Disease* + --+ --+ ------+| GFR (mL/min/1.73 m2) ?| With Kidney Damage ?| ?Without Kidney Damage+ --------+ --------+ +| ?>90 ?| ?Stage one ?| ? Normal ?+ ---+ ---+ -------+| ?60-89 ?| ?Stage two ?| ? Decreased GFR ? + --+ --+ ------+| ?30-59 ?| ?Stage three ?| ? Stage three ? + --+ --+ ------+| ?15-29 ?| ?Stage four ? | ? Stage four ?+ ---+ ---+ -------+| ?<15 (or dialysis) ? ?| ?Stage five ? | ? Stage five ?+ ---+ ---+ -------+ *Each stage assumes the associated GFR level has been in effect for at least three months. ?Stages 1 to 5, with or without kidney disease, indicate chronic kidney disease. Notes: Determination of stages one and two (with eGFR >59mL/min/1.73 m2) requires estimation of kidney damage for at least three months as defined by structural or functional abnormalities of the kidney, manifested by either:Pathological abnormalities or Markers of kidney damage (including abnormalities in the composition of the blood or urine or abnormalities in imaging tests). Lab Interpretation Abnormal (test code = 34087-2) [facility] 1 [id number] 01:29:28Impression: Bilateral lung opacities compatible with known Covid 19pneumonia.Exam: XR CHEST 1 10/08/2020 6:51 PM Clinical History: COVID Comparison: None Technique: frontal view of the chest Findings: Bilateral ill-defined patchy airspace and streaky opacities suggestive ofatypical pneumonia including Covid 19.No pleural effusion. ?No pneumothorax. The cardiac size is within normal limits. No acute osseous abnormality. [facility], Radiant Results Inft User - 10/08/2020 7:30 PM CSTExam: XR CHEST 1 10/08/2020 6:51 PMClinical History: COVID Comparison: NoneTechnique: frontal view of the chestFindings:Bilateral ill-defined patchy airspace and streaky opacities suggestive ofatypical pneumonia includingCovid 19.No pleural effusion. No pneumothorax. The cardiac size is within normal limits. No acute osseous abnormality.IMPRESSIONImpression: Bilateral lung opacities compatible with known Covid 19pneumonia.[facility] with [id number] 01:16:00 Test Item Value Reference Range Interpretation Comments WBC (test code = See_Comment [Automated 3475-2) message] The sy stem which generated this result transmitted reference range : 4.30 - 11.10 10*3/?L. The reference range was not used to interpret this result as normal/abnormal . RBC (test code = See_Comment [Automated 899-8) message] The sy stem which generated this result transmitted reference range : 3.93 - 5.25 10*6/?L. The reference range was not used to interpret this result as normal/abnormal . HGB (test code = 12.0 g/dL 11.6-15 718-7) HCT (test code = 36.2 % 35.7-45.2 4544-3) MCV (test code = 83.0 fL 80.6-95.5 787-2) MCH (test code = 27.5 pg 25.9-32.8 785-6) MCHC (test code = 33.1 g/dL 31.6-35.1 786-4) RDW-SD (test code = 42.1 fL 39-49.9 64647-3) RDW-CV (test code = 13.9 % 12-15.5 788-0) PLT (test code = See_Comment [Automated 777-3) message] The sy stem which generated this result transmitted reference range : 166 - 358 10*3/ ?L. The reference r shannon was not used to interpret this result as normal/abnormal . MPV (test code = 11.3 fL 9.5-12.9 71716-1) NRBC/100 WBC (test See_Comment [Automat ed code = 6670248862) message] The system which generated this result transmitted reference range : 0.0 - 10.0 /100 WBCs. The refer ence range was not u sed to interpret th is result as normal/abnormal . NRBC x10^3 (test code <0.01 See_Comment [Auto mated = 9864428442) message] The s ystem which generated this result transmitted reference range : 10*3/?L. The reference range was not used to interpret this result as normal/abnormal . GRAN MAT (NEUT) % 70.3 % (test code = 770-8) IMM GRAN % (test code 0.70 % = 7917366051) LYMPH % (test code = 16.1 % 736-9) MONO % (test code = 11.8 % 5905-5) EOS % (test code = 0.9 % 713-8) BASO % (test code = 0.2 % 706-2) GRAN MAT x10^3(ANC) 3.93 10*3/uL 1.88-7.09 (test code = 2378355170) IMM GRAN x10^3 (test 0.04 10*3/uL 0-0.06 code = 1101693290) LYMPH x10^3 (test code 0.90 10*3/uL 1.32-3.29 L = 731-0) MONO x10^3 (test code 0.66 10*3/uL 0.33-0.92 = 742-7) EOS x10^3 (test code = 0.05 10*3/uL 0.03-0.39 711-2) BASO x10^3 (test code <0.03 0.01-0.07 = 704-7) Lab Interpretation Abnormal (test code = 93553-0) [facility]
[2022-07-31] MEDS ORDERED: IBUPROFEN 200 MG TAB PO ONE (09:48)
--- NOTE | 2022-07-31 10:16 | RAD REPORT ---
EXAM DESCRIPTION: CT - CTHCSPWOC - 07/31/2022 10:06 am CLINICAL HISTORY: Trauma, head and neck injury. fall, head injury COMPARISON: No comparisons TECHNIQUE: Axial 5 mm thick images of the head were obtained. Axial 2 mm thick images of the cervical spine were obtained with sagittal and coronal reconstruction images generated and reviewed. All CT scans are performed using dose optimization technique as appropriate and may include automated exposure control or mA/KV adjustment according to patient size. FINDINGS: CT HEAD WITHOUT CONTRAST: No acute hemorrhage, hydrocephalus or extra-axial collection is identified.No areas of brain edema or midline shift. The paranasal sinuses and mastoids are clear.The calvarium is intact. CT CERVICAL SPINE WITHOUT CONTRAST: No fracture or subluxation.Mild lower cervical degenerative changes.No prevertebral soft tissues swel ling is identified. IMPRESSION: No acute intracranial or cervical spine findings. Mild lower cervical degenerative changes.
--- NOTE | 2022-07-31 10:19 | RAD REPORT ---
EXAM DESCRIPTION: CT - CTFB CLINICAL HISTORY: right sided facial swelling, fall Fall, right-sided facial pain and swelling. COMPARISON: No comparisons TECHNIQUE: Axial 2 mm thick images of the face were obtained with sagittal and coronal reconstructio n images. All CT scans are performed using dose optimization technique as appropriate and may include automated exposure control or mA/KV adjustment according to patient size. FINDINGS: No acute facial bone fracture is seen.The mandible is intact. The globes and orbital contents are grossly unremarkable.The paranasal sinuses and mastoids are clear . IMPRESSION: Negative for facial bone fracture.
--- NOTE | 2022-07-31 10:26 | ER ---
Nurse's Notes [facility] Name: Susana Lane Age: 56 yrs Sex: Female : 1965 Arrival Date: 07/31/2022 Time: 09:12 Bed 18 Private MD: Stephen Bah Diagnosis: Facial Contusion Presentation: 07/31 09:36 Chief complaint: Patient states: lost my balance going up a step , fell and hit right iw side of face on the brick corner , now has pain to right orbital area , denies LOC. 09:36 Acuity: JAKOB 4 iw 09:36 Method Of Arrival: Ambulatory iw Historical: - Allergies: 09:37 No Known Allergies; iw - PMHx: 09:37 Hypertension; iw - Social history:: Smoking status: Patient denies any tobacco usage or history of. Screenin:55 Abuse screen: Denies threats or abuse. Denies injuries from another. Nutritional mb8 screening: No deficits noted. Tuberculosis screening: No symptoms or risk factors identified. Fall Risk Fall in past 12 months (25 points). Secondary diagnosis (15 points) No IV (0 pts). Ambulatory Aid- None/Bed Rest/Nurse Assist (0 pts). Gait- Normal/Bed Rest/Wheelchair (0 pts) Mental Status- Oriented to own ability (0 pts). Total Small Fall Scale indicates Low Risk Score (25-44 pts). Fall prevention measures have been instituted. Side Rails Up X 2 As available Patient and Family Educated on Fall Prevention Program and strategies. Assessment: 09:55 General: Patient reports right sided facial pain after falling walking up the stairs at mb8 work. Denies any LOC or use of blood thinners. Small abrasion to right zygomatic arch. General: Appears in no apparent distress. Behavior is calm, cooperative, appropriate for age. Pain: Complains of pain in right cheek and right voodoo Pain does not radiate. Pain currently is 6 out of 10 on a pain scale. Quality of pain is described as aching. Derm: Wound noted right zygomatic arch Wound is abrasion. Vital Signs: 09:37 BP 141 / 77; Pulse 58; Resp 16; Temp 98.4; Pulse Ox 100% on R/A; Weight 99.79 kg; iw Height 4 ft. 9 in. (144.78 cm); Pain 6/10; 10:53 BP 138 / 84; Pulse 64; Resp 18; Pulse Ox 99% ; Pain 4/10; mb8 09:37 Body Mass Index 47.61 (99.79 kg, 144.78 cm) ED Course: 09:12 Patient arrived in ED. mr 09:12 Stephen Bah DO is Private Physician. mr 09:21 Johann Rush PA is PHCP. [facility] 09:21 Jesus Manuel Najera MD is Attending Physician. [facility] 09:37 Triage completed. iw 09:37 Arm band placed on. iw 09:39 Chad Walden, RN is Primary Nurse. mb8 09:55 Patient has correct armband on for positive identification. Bed in low position. Call mb8 light in reach. Side rails up X2. Client placed on continuous cardiac and pulse oximetry monitoring. NIBP monitoring applied. 10:07 No provider procedures requiring assistance completed. Patient did not have IV access mb8 during this emergency room visit. 10:07 Facial Bones W/O Con CT Sent. mb8 10:07 CT Head C Spine Sent. mb8 10:08 CT Head C Spine In Process Unspecified. EDMS 10:08 Facial Bones W/O Con CT In Process Unspecified. EDMS Administered Medications: 09:59 Drug: Ibuprofen 600 mg Route: PO; mb8 10:45 Follow up: Response: No adverse reaction; Pain is decreased mb8 Medication: 10:05 VIS not applicable for this client. mb8 Outcome: 10:25 Discharge ordered by MD. [facility] 10:54 Discharged to home ambulatory, with family. mb8 10:54 Condition: stable 10:54 Discharge instructions given to patient, Instructed on discharge instructions, follow up and referral plans. medication usage, Demonstrated understanding of instructions, follow-up care, medications, Prescriptions given X 1. 10:55 Patient left the ED. mb8 Signatures: Dispatcher [employer] EDMS Johann Rush PA PA jmm Rivera, Mary Allison Lane, RN RN Chad Walden, RN RN mb8 Corrections: (The following items were deleted from the chart) 10:06 10:05 Abuse screen: Denies threats or abuse. Denies injuries from another. mb8 mb8 10:06 10:05 Nutritional screening: No deficits noted. mb8 mb8 10:06 10:05 Tuberculosis screening: No symptoms or risk factors identified. mb8 mb8 10:06 10:05 Fall Risk Fall in past 12 months (25 points). Secondary diagnosis (15 points) No mb8 IV (0 pts). Ambulatory Aid- None/Bed Rest/Nurse Assist (0 pts). Gait- Normal/Bed Rest/Wheelchair (0 pts) Mental Status- Oriented to own ability (0 pts). Total Small Fall Scale indicates Low Risk Score (25-44 pts). Fall prevention measures have been instituted. Side Rails Up X 2 As available Patient and Family Educated on Fall Prevention Program and strategies. mb8
--- NOTE | 2022-07-31 10:26 | EDPHYS ---
Physician Documentation [facility] Name: Susana Lane Age: 56 yrs Sex: Female : 1965 Arrival Date: 07/31/2022 Time: 09:12 Bed 18 Private MD: Olvin [facility] ED Physician Jesus Manuel Najera HPI: 07/31 09:41 This 56 yrs old Black Female presents to ER via Ambulatory with complaints of Fall jmm Injury, Facial Injury. 09:41 Details of fall: The patient fell from an upright position. Onset: The symptoms/episode jmm began/occurred acutely, just prior to arrival. Associated injuries: The patient sustained injury to the head. The patient has not experienced similar symptoms in the past. Is a 56-year-old female . Historical: - Allergies: 09:37 No Known Allergies; iw - PMHx: 09:37 Hypertension; iw - Social history:: Smoking status: Patient denies any tobacco usage or history of. ROS: 18:05 Constitutional: Negative for fever, chills, and weight loss, Cardiovascular: Negative jm for chest pain, palpitations, and edema, Respiratory: Negative for shortness of breath, cough, wheezing, and pleuritic chest pain, Abdomen/GI: Negative for abdominal pain, nausea, vomiting, diarrhea, and constipation. 18:05 Neuro: Positive for headache. 18:05 All other systems are negative. Exam: 10:20 ECG was reviewed by the Attending Physician. jmm 18:05 Constitutional: This is a well developed, well nourished patient who is awake, alert, jmm and in no acute distress. Head/Face: atraumatic. Eyes: EOMI, no conjunctival erythema appreciated ENT: Moist Mucus Membranes Neck: Trachea midline, Supple Chest/axilla: Normal chest wall appearance and motion. Cardiovascular: Regular rate and rhythm. No edema appreciated Respiratory: Normal respirations, no respiratory distress appreciated Abdomen/GI: Non distended Back: Normal ROM Skin: General appearance color normal MS/ Extremity: Moves all extremities, no obvious deformities appreciated, no edema noted to the lower extremities Neuro: Awake and alert Psych: Behavior is normal, Mood is normal, Patient is cooperative and pleasant 18:06 Head/face: Swelling noted to the right side of the forehead. [facility] Vital Signs: 09:37 BP 141 / 77; Pulse 58; Resp 16; Temp 98.4; Pulse Ox 100% on R/A; Weight 99.79 kg; iw Height 4 ft. 9 in. (144.78 cm); Pain 6/10; 10:53 BP 138 / 84; Pulse 64; Resp 18; Pulse Ox 99% ; Pain 4/10; mb8 09:37 Body Mass Index 47.61 (99.79 kg, 144.78 cm) iw MDM: 09:41 Patient medically screened. [facility] 10:25 Data reviewed: vital signs, nurses notes. Counseling: I had a detailed discussion with cuong the patient and/or guardian regarding: the historical points, exam findings, and any diagnostic results supporting the discharge/admit diagnosis, the need for outpatient follow up, to return to the emergency department if symptoms worsen or persist or if there are any questions or concerns that arise at home. 07/31 09:45 Order name: CT Head C Spine; Complete Time: 10:17 [facility] 07/31 09:45 Order name: Facial Bones W/O Con CT; Complete Time: 10:20 [facility] 07/31 09:45 Order name: EKG - Nurse/Tech; Complete Time: 10:03 [facility] EC:20 Rate is 56 beats/min. Rhythm is regular, Sinus bradycardia. QRS [place] is Normal. ND jmm interval is normal. QRS interval is normal. QT interval is normal. No ST changes noted. Reviewed by me. Administered Medications: 09:59 Drug: Ibuprofen 600 mg Route: PO; mb8 10:45 Follow up: Response: No adverse reaction; Pain is decreased mb8 Disposition Summary: 07/31/22 10:25 Discharge Ordered Location: Home [facility] Condition: Stable [facility] Diagnosis - Facial Contusion [facility] Followup: [facility] - With: Private Physician - When: 1 - 2 days - Reason: Recheck today's complaints, Continuance of care, Re-evaluation by your physician Discharge Instructions: - Discharge Summary Sheet [facility] - Facial or Scalp Contusion [facility] Forms: - Medication Reconciliation Form [facility] - Thank You Letter [facility] - Work release form [facility] - Antibiotic Education [facility] - Prescription Opioid Use [facility] Prescriptions: - Diclofenac Sodium 75 mg Oral Tablet Sustained Release - take 1 tablet by ORAL route 2 times per day; 30 tablet; Refills: 0, Product [facility] Selection Permitted Addendum: 08/04/2022 04:04 Co-signature as Attending Physician, Jesus Manuel Najera MD I agree with the assessment and c burns plan of care. Signatures: Dispatcher [employer] Jesus Manuel Hawkins MD MD cha Mickail, Joel, PA PA jmm Williams, Irene, RN RN Chad Lester RN RN mb8
[2022-07-31 11:00] VITALS: TEMP 98.4
[2022-07-31 11:01] VITALS: BP 138/84; O2SAT 99
--- NOTE | 2022-08-03 18:45 | EKG ---
Test Date: 2022-07-31 Test Time: 09:57:26 [employer]: MEASUREMENT RESULTS: Intervals: Rate: 56 IL: 150 QRSD: 70 QT: 408 QTc: 393 [place]: P: 38 IL: 150 QRS: 29 T: 8 INTERPRETIVE STATEMENTS: Sinus bradycardia Otherwise normal ECG Compared to ECG 11/24/2007 19:27:52 Sinus rhythm no longer present Electronically Signed On 08-03-22 18:39:41 CDT by Rajeev Curran
== END 2022-07-31 10:55 | disposition home or self-care (01) ==
LOC: ER 09:09
DX: S00.83XA Contusion of other part of head, initial encounter (principal); W10.9XXA Fall (on) (from) unspecified stairs and steps, initial encounter; Y93.9 Activity, unspecified; Y92.9 Unspecified place or not applicable; I10 Essential (primary) hypertension
CPT/HCPCS: 70450; 70486; 72125; 76377; 93005; 99283

== ENCOUNTER 2023-07-29 12:37 | Emergency (ER) | payer SELFPAY ==
--- OUTSIDE RECORDS SUMMARY | 2023-07-29 12:41 | XMS REPORT | Continuity of Care Document ---
:1965 Author Organization [facility] t Address [address] [place] [address] [place] [id number] Care Team Providers Name Role Phone MARY BAH Primary Care Physician Unavailable Mary Bah Attending Clinician Unavailable Laurie Holland Attending Clinician Unavailable YUE BOYKIN Attending Clinician Unavailable Yue Boykin MD Attending Clinician GIANNI OREILLY Attending Clinician Unavailable Gianni Oreilly NP Attending Clinician Doctor Unassigned, [place] Attending Clinician Unavailable Elza Austin Attending Clinician Lexi Philip Attending Clinician Luke Miller MD Attending Clinician LUKE MILLER Attending Clinician Unavailable Alexx Singh MD Attending Clinician ALEXX SINGH Attending Clinician Unavailable Nik Merrill Attending Clinician YUE BOYKIN Admitting Clinician Unavailable GIANNI OREILLY Admitting Clinician Unavailable Luke Miller MD Admitting Clinician LUKE MILLER Admitting Clinician Unavailable Payers Payer Name Policy Type Policy Number Effective Date Expiration Date 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[employer] [id number] 2020 2020 UNINSURED 00:00:00 00:00:00 Problems Condition Condition Condition Status Onset Resolution Last Treating Co mments Source Name Details Category Date Date Treatment Clinician Date Pneumonia Pneumonia Disease Active 2019-10 Uni vers due to due to 2-30 ity of COVID-19 COVID-19 00:00: [place] virus virus [address] [place] [address] Branch Atypical Atypical Disease Active 2019-10 Unive rs pneumonia pneumonia 2- ity of 00:00: [address] [id number] Abnormal Problem Comm on laboratory [facility] test [facility] [id number] Prediabete Problem Co mmon s [facility] Hypertensi Hypertensi Problem C ommon on on, Spirit unspecifie [facility] d [facility] [id number] Hyperglyce Problem Com mon sherry [facility] [id number] Insomnia, Problem Com mon unspecifie Spirit d type [facility] Allergic Allergic Problem Commo n rhinitis rhinitis [facility] [id number] Hyperchole Problem Com mon sterolemia [facility] [id number] Bereavemen Problem Com mon t [facility] [id number] Chest Problem Common tightness [facility] [id number] Acute pain Problem Com mon of left Spirit shoulder [facility] [id number] Essential Problem Comm on hypertensi Spirit on [facility] [id number] Morbid Problem Common (severe) Spirit obesity - [facility] due to [facility] [id number] Difficulty Problem Co mmon sleeping [facility] [id number] Elevated Problem Comm on serum Spirit creatinine [facility] [id number] Morbid Problem Common obesity [facility] [id number] Anxiety Problem Common [facility] [id number] Left-sided Problem Co mmon thoracic Spirit back pain, - [facility] unspecifie [facility] chronicity Medica [facility] [place] [id number] Dietary Problem Commo n counseling Spirit and - [facility] surveillan [facility] [id number] Pain in Problem Common left [facility] shoulder - [facility] [id number] Bilateral Problem Co mmon [id number] carpal Spirit tunnel - [facility] syndrome [facility] Allergies, Adverse Reactions, Alerts Allergy Allergy Status Severity Reaction(s) Onset Inactive Treating Comm ents Source Name Type Date Date Clinician NO KNOWN Drug Active Univers ALLERGIE Class ity of S [facility] Social History Social Habit Start Date Stop Date Quantity Comments Source History of Common Spirit - Tobacco Use [facility] Sex Assigned At Common Sp alyssa - [facility] Exposure to 2022-03-01 2022-03-11 Not sure [facility]-CoV-2 00:00:00 12:53:00 [facility] (event) [place] Tobacco use and 2019-12-08 2019-12-08 Smokeless tobacco Un iversity of exposure 00:00:00 00:00:00 non-user [facility] Smoking Status Start Date Stop Date Source Unknown if ever smoked [facility]it [facility] Never smoked tobacco [facility] Medications Ordered Filled Start Stop Current Ordering Indication Dosage Frequency Signature Comments Components Source Medication Medication Date Date Medication? Clinician (SIG) Name Name indomethaci 2022- No 50mg 50 mg, Uni vers n (INDOCIN) 03-27 Oral, ity of capsule 50 20:16: 21:19 ONCE, 1 Alexandr as mg 00 :00 dose, On Medical Sat Branch 03/27/23 at 1530, GASPER indomethaci Yes [id number] 25mg Take 1 Univers n 25 mg 03-27 9101 capsule by ity of capsule 00:00: mouth [address] [place] [address] (three) Medical times Branch daily as needed for Pain or Inflammati on. methylPREDN Yes [id number] Take by Univers ISolone 4 03-12 mouth ity of mg tablets 00:00: [place]INSTRU [place] 00 CTIONS. Medical follow Branch package directions methylPREDN Yes [id number] Take by Univers ISolone 4 03-12 mouth ity of mg tablets 00:00: [place]INSTRU [place] 00 CTIONS. Medical follow Branch package directions dexamethaso 2021- No 10mg 10 mg, Uni vers ne 03-11 Intramuscu ity of (DECADRON 21:00: 21:00 lar, ONCE, [place] PHOSPHATE) 00 :00 1 dose, On Med ical injection Wed03/11/22 Bran ch 10 mg at 1600, Routine ketorolac No 30mg 30 mg, Unive rs (TORADOL) 03-11 Intramuscu ity of injection 21:00: 21:43 lar, ONCE, [place] 30 mg 00 :00 1 dose, On Medical 03/11/22 Branch at 1600, GASPER acetaminoph 2021- No 1{tbl} Take 1 U nivers en-codeine 03-11 tablet by ity of (TYLENOL-CO 16:17: 00:00 [place] DE[place] #3[place] 43 :00 every 4 Medical 300-30 mg (four) Branch tablet hours as needed. ketorolac Yes [id number] 10mg Take 1 U nivers 10 mg 03-11 tablet by ity of tablet 00:00: mouth [place] 00 every 6 Medical (six) Branch hours as needed for Pain (scale 1-3) or Pain (scale 4-6). ketorolac 2022- No [id number] 10mg Take 1 Univers 10 mg 03-11 tablet by ity of tablet 00:00: 00:00 mouth [place] 00 :00 every 6 Medical [...] (four) Branch tablet hours as needed. LISINOPRIL 2019-10 2020- No 10mg Take 10 mg Univers ORAL 2-31 12-31 by mouth ity of 21:43: 00:00 daily. [place] 00 :00 Medical Branch acetaminoph 2019-10 Yes 1{tbl} Take 1 Un janet en-codeine 2-31 tablet by ity of (TYLENOL-CO 16:23: mouth [place] DEINE #3) 28 every 4 Medical 300-30 mg (four) Branch tablet hours as needed. methylPREDN 2019-10 Yes [id number] Take by [facility] 4 2-31 [id number] mouth ity of mg tablets 00:00: SEE-INSTRU [place] 00 CTIONS. Medical follow Branch package directions methylPREDN 2019-10 Yes [id number] Take by [place] [address] 2-31 [id number] mouth ity of mg tablets 00:00: SEE-INSTRU [place] 00 CTIONS. Medical follow Branch package directions methylPREDN 2019-10 Yes [id number] Take by [place] [address] 2-31 [id number] mouth ity of mg tablets 00:00: SEE-INSTRU [place] 00 CTIONS. Medical follow Branch package directions methylPREDN 2019-10- No [id number] Take by [place] [address] 2-31 06-01 [id number] mouth ity o f mg tablets 00:00: [...] 10-100 40 Starting Medic al mg/5 mL [facility] Branch solution 10 10/08/20 mL at 2317, Until Discontinu ed, Routine, Cough albuterol 2019-10 Yes 2{puff} 2 Puff, Un janet (VENTOLIN) 2-30 Inhalation ity of inhaler 2 05:17: , Q6HPRN, Alexandr as Puff [address] [facility] 10/08/20 at 2317, Until Discontinu ed, Routine, Wheezing, Shortness of Breath, Bronchospa sm, Chest tightness< br>Is this order for a patient with suspected or confirmed COVID-19 infection? Yes ondansetron 2019-10 Yes 4mg 4 mg, Slow Univers (ZOFRAN 2-30 IV Push, ity of (PF)) 05:15: Q6HPRN, [place] injection 4 58 Starting Medi alma rosa mg [facility] Branch 10/08/20 at 2315, Until Discontinu ed, Routine, Nausea and Vomiting (N/V) traMADoL 2019-10- No 50mg 50 mg, Univer s (ULTRAM) 2-30 10-11 Oral, ity of tablet 50 05:15: 05:14 Q8HPRN, [place] mg 54 :[address] [facility] 10/08/20 at 2315, Until Jessica 10/10/20 at 2314, Routine, Pain (scale 4-6) acetaminoph 2019-10 Yes 650mg 650 mg, Un janet en 2-30 Oral, ity of (TYLENOL) 05:15: Q6HPRN, [place] tablet 650 52 Starting Medic al mg [facility] 10/08/20 at 2315, Until Discontinu ed, Routine, Pain (scale 1-3) dexamethaso 2019-10 2020- No 10mg 10 mg, IV Univers ne 2-30 12 Push, ity of (DECADRON 04:45: 03:49 ONCE, 1 [place] PHOSPHATE) 00 :00 dose, e Medi alma rosa injection 10/08/20 Branch 10 mg at 2245, STAT azithromyci 2019-10- No 500mg 500 mg, IV Univers n 2-30 12- Piggyback, ity of (ZITHROMAX) 04:45: 04:49 [place]CE[place] 1 [place] 500 mg in 00 :00 dose, [facility] Medic al NaCl 0.9% 10/08/20 Branch (NS) 250 mL at 2245, VIAL-MATE 250 IV mL
Reas piggyback on for Anti-Infec tive: Documented Infection< br>Documen megan Infection Site: Respirator y
Durat ion of Therapy: 7 days acetaminoph 2019-10- No 1000mg 1,000 mg, Univers en 12-30 Oral, ity of (TYLENOL) 01:45: 01:14 ONCE, 1 [place] tablet 00 :00 dose, [facility] 1,000 mg 10/08/20 Branch at 1945, Routine ibuprofen 2019-10- No 800mg 800 mg, Uni vers (IBU) 12 Oral, ity of tablet 800 01:45: 01:14 ONCE, 1 Alexandr as mg 00 :00 dose, [facility] Medical 10/08/20 Branch at 1945, GASPER diclofenac 2020-0 Yes [id number] 75mg Take 1 Univers 75 mg EC 6-15 9107 tablet by ity of tablet 00:00: mouth (two) Medical times Branch daily with meals. diclofenac 2020-0 Yes [id number] 75mg Take 1 Univers 75 mg EC 6-15 9107 tablet by ity of tablet 00:00: mouth (two) Medical times Branch daily with meals. diclofenac 2020-0 Yes [id number] 75mg Take 1 Univers 75 mg EC 6-15 9107 tablet by ity of tablet 00:00: mouth (two) Medical times Branch daily with meals. diclofenac 2020-0 Yes [id number] 75mg Take 1 Univers 75 mg EC 6-15 9107 tablet by ity of tablet 00:00: mouth (two) Medical times Branch daily with meals. diclofenac 2020-0 Yes [id number] 75mg Take 1 Univers 75 mg EC 6-15 9107 tablet by ity of tablet 00:00: mouth (two) Medical times Branch daily with meals. diclofenac 2020-0 2021- No [id number] 75mg Take 1 Univers 75 mg EC 6-15 06- 9107 tablet by ity o f tablet 00:00: 00:00 mouth 2 [place] 00 :00 (two) Medical times Branch daily with meals. diclofenac 2020-0 Yes [id number] 75mg Take 1 Univers 75 mg EC 5-22 9107 tablet by ity of tablet 00:00: mouth 2 [place] (two) Medical times Branch daily with meals. diclofenac 2020-0 Yes [id number] 75mg Take 1 Univers 75 mg EC 5-22 9107 tablet by ity of tablet 00:00: mouth 2 [place] 00 (two) Medical times Branch daily with meals. diclofenac 2019-2019- No [id number] 75mg Take 1 Univers 75 mg EC 5-22 12-31 9107 tablet by ity o f tablet 00:00: 00:00 mouth 2 [place] 00 :00 (two) Medical times Branch daily with meals. diclofenac 2019-0 Yes [id number] 75mg Take 1 Univers 75 mg EC 3-19 9107 tablet by ity of tablet 00:00: mouth 2 [place] (two) Medical times Branch daily with meals. diclofenac 2020-0 Yes [id number] 75mg Take 1 Univers 75 mg EC 3-19 9107 tablet by ity of tablet 00:00: mouth 2 [place] 00 (two) Medical times Branch daily with meals. diclofenac 2020-0 Yes [id number] 75mg Take 1 Univers 75 mg EC 3-19 9107 tablet by ity of tablet 00:00: mouth 2 [place] (two) Medical times Branch daily with meals. diclofenac 2019- No [id number] 75mg Take 1 Univers 75 mg EC 3-19 05-22 9107 tablet by ity o f tablet 00:00: 00:00 mouth 2 [place] 00 :00 (two) Medical times Branch daily with meals. LISINOPRIL Yes Take by [facility] ers ORAL 8-30 mouth. ity of 14:13: [place] 17 Medical Branch acetaminoph 2018- Yes 1{tbl} Take 1 Un janet en-codeine 8-30 tablet by ity of (TYLENOL-CO 14:13: mouth [place] DEINE #3) 17 every 4 Medical 300-30 mg (four) Branch tablet hours as needed. LISINOPRIL Yes Take by [facility] ers ORAL 8-30 mouth. ity of 14:13: [address] acetaminoph 2019-0 Yes 1{tbl} Take 1 Un janet en-codeine 8-30 tablet by ity of (TYLENOL-CO 14:13: mouth [place] DEINE #3) 17 every 4 Medical 300-30 mg (four) Branch tablet hours as needed. LISINOPRIL 2019-0 Yes Take by Univ ers ORAL 8-30 mouth. ity of 14:13: [address] acetaminoph 2019-0 Yes 1{tbl} Take 1 Un janet en-codeine 8-30 tablet by ity of (TYLENOL-CO 14:13: mouth [place] DEINE #3) 17 every 4 Medical 300-30 mg (four) Branch tablet hours as needed. LISINOPRIL 2019-0 Yes Take by Univ ers ORAL 8-30 mouth. ity of 14:13: [address] acetaminoph 2018-0 Yes 1{tbl} Take 1 Un janet en-codeine 8-30 tablet by ity of (TYLENOL-CO 14:13: mouth [place] DEINE #3) 17 every 4 Medical 300-30 mg (four) Branch tablet hours as needed. LISINOPRIL 2019-0 Yes Take by [facility] ers ORAL 8-30 mouth. ity of 14:13: [address] acetaminoph 2018-0 Yes 1{tbl} Take 1 Un janet en-codeine 8-30 tablet by ity of (TYLENOL-CO 14:13: mouth [place] DEINE #3) 17 every 4 Medical 300-30 mg (four) Branch tablet hours as needed. LISINOPRIL 2019-0 Yes Take by [facility] ers ORAL 8-30 mouth. ity of 14:13: [address] acetaminoph 2019-0 Yes 1{tbl} Take 1 Un janet en-codeine 8-30 tablet by ity of (TYLENOL-CO 14:13: mouth [place] DEINE #3) 17 every 4 Medical 300-30 mg (four) Branch tablet hours as needed. LISINOPRIL 2019-0 Yes Take by [facility] ers ORAL 8-30 mouth. ity of 14:13: [address] LISINOPRIL 2019-0 Yes Take by [facility] ers ORAL 8-30 mouth. ity of 14:13: [address] acetaminoph Yes 1{tbl} Take 1 Un janet en-codeine 8-30 tablet by ity of (TYLENOL-CO 14:13: mouth [place] DEINE #3) 17 every 4 Medical 300-30 mg (four) Branch tablet hours as needed. LISINOPRIL 2018-0 Yes Take by [facility] ers ORAL 8-30 mouth. ity of 14:13: [address] acetaminoph Yes 1{tbl} Take 1 Un janet en-codeine 8-30 tablet by ity of (TYLENOL-CO 14:13: mouth [place] DEINE #3) 17 every 4 Medical 300-30 mg (four) Branch tablet hours as needed. acetaminoph Yes 1{tbl} Take 1 Un janet en-codeine 8-30 tablet by ity of (TYLENOL-CO 14:13: mouth [place] DEINE #3) 17 every 4 Medical 300-30 mg (four) Branch tablet hours as needed. LISINOPRIL 2018-0 Yes Take by [facility] ers ORAL 8-30 mouth. ity of 14:13: [address] acetaminoph Yes 1{tbl} Take 1 Un janet en-codeine 8-30 tablet by ity of (TYLENOL-CO 14:13: mouth [place] DEINE #3) 17 every 4 Medical 300-30 mg (four) Branch tablet hours as needed. LISINOPRIL 0 Yes Take by [facility] ers ORAL 8-30 mouth. ity of 14:13: [address] acetaminoph Yes 1{tbl} Take 1 Un janet en-codeine 8-30 tablet by ity of (TYLENOL-CO 14:13: mouth [place] DEINE #3) 17 every 4 Medical 300-30 mg (four) Branch tablet hours as needed. LISINOPRIL 2018-0 Yes Take by [facility] ers ORAL 8-30 mouth. ity of 14:13: [address] acetaminoph Yes 1{tbl} Take 1 Un janet en-codeine 8-30 tablet by ity of (TYLENOL-CO 14:13: mouth [place] DEINE #3) 17 every 4 Medical 300-30 mg (four) Branch tablet hours as needed. LISINOPRIL 2019-0 Yes Take by [facility] ers ORAL 8-30 mouth. ity of 14:13: [place] 17 Medical Branch acetaminoph 2019-0 Yes 1{tbl} Take 1 Un janet en-codeine 8-30 tablet by ity of (TYLENOL-CO 14:13: mouth [place] DEINE #3) 17 every 4 Medical 300-30 mg (four) Branch tablet hours as needed. methylPREDN 2019-0 Yes [id number] [id number] mouth ity of (MEDROL, 00:00: SEE-INSTRU Alexandr as LANEY,) 4 mg 00 CTIONS. Medica l tablets follow Branch package directions methylPREDN 2019-0 Yes [id number] Take by [facility] [phone] mouth ity of (MEDROL, 00:00: SEE-INSTRU Alexandr as LANEY,) 4 mg 00 CTIONS. Medica l tablets follow Branch package directions methylPREDN 2019-0 Yes [id number] Take by [facility] [phone] mouth ity of (MEDROL, 00:00: SEE-INSTRU Alexandr as LANEY,) 4 mg 00 CTIONS. Medica l tablets follow Branch package directions methylPREDN 2019-0 Yes [id number] Take by [facility] [phone] mouth ity of (MEDROL, 00:00: SEE-INSTRU Alexandr as LANEY,) 4 mg 00 CTIONS. Medica l tablets follow Branch package directions methylPREDN 2019-0 Yes [id number] Take by [facility] [phone] mouth ity of (MEDROL, 00:00: SEE-INSTRU Alexandr as LANEY,) 4 mg 00 CTIONS. Medica l tablets follow Branch package directions methylPREDN 2019-0 Yes [id number] Take by [facility] [phone] mouth ity of (MEDROL, 00:00: SEE-INSTRU Alexandr as LANEY,) 4 mg 00 CTIONS. Medica l tablets follow Branch package directions methylPREDN 2019-0 Yes [id number] Take by [facility] 8-30 9107 mouth ity of (MEDROL, 00:00: SEE-INSTRU Alexandr as LANEY,) 4 mg 00 CTIONS. Medica l tablets follow Branch package directions methylPREDN 2019-0 Yes [id number] Take by [facility] 8-30 9107 mouth ity of (MEDROL, 00:00: SEE-INSTRU [place]r as LANEY,) 4 mg 00 CTIONS. Medica l tablets follow Branch package directions methylPREDN 2019-0 Yes [id number] Take by [facility] 8 9107 mouth ity of (MEDROL, 00:00: SEE-INSTRU Alexandr as LANEY,) 4 mg 00 CTIONS. Medica l tablets follow Branch package directions methylPREDN 2019-0 Yes [id number] Take by [facility] 06-09 9107 mouth ity of (MEDROL, 00:00: SEE-INSTRU Alexandr as LANEY,) 4 mg 00 CTIONS. Medica l tablets follow Branch package directions methylPREDN 2019-0 Yes [id number] Take by [facility] 06-09 9107 mouth ity of (MEDROL, 00:00: SEE-INSTRU Alexandr as LANEY,) 4 mg 00 CTIONS. Medica l tablets follow Branch package directions methylPREDN 2019-0 Yes [id number] Take by [facility] 06-09 9107 mouth ity of (MEDROL, 00:00: SEE-INSTRU [place]r as LANEY,) 4 mg 00 CTIONS. Medica l tablets follow Branch package directions methylPREDN 2019-0 Yes [id number] Take by [facility] 06-09 9107 mouth ity of (MEDROL, 00:00: SEE-INSTRU [place]r as LANEY,) 4 mg 00 CTIONS. Medica l tablets follow Branch package directions methylPREDN 2019-0 2020- No [id number] Take by [facility] 06-09 9107 mouth ity of (MEDROL, 00:00: 00:00 [place]ANEY,) 4 mg 00 :00 CTIONS. Medica l tablets follow Branch package directions Lisinopril/ Lisinopril/ No 1{table QD Lisinopril HCTZ HCTZ t} /HCTZ 10/12.5 mg 10/12.5 mg 10/12.5 mg Lisinopril- Lisinopril- No Lisinopril hydroCHLORO hydroCHLORO -hydroCHLO thiazide thiazide ROthiazide 10-12.5 MG 10-12.5 MG 10-12.5 MG Lisinopril- Lisinopril- No Lisinopril hydroCHLORO hydroCHLORO -hydroCHLO thiazide thiazide ROthiazide 10-12.5 MG 10-12.5 MG 10-12.5 MG Lisinopril/ Lisinopril/ No 1{table QD Lisinopril HCTZ HCTZ t} /HCTZ 10-12.5 MG 10-12.5 MG 10-12.5 MG Lisinopril- Lisinopril- No Lisinopril hydroCHLORO hydroCHLORO -hydroCHLO [...] 11-30 [facility] [facility] 00:00 - [facility] :00 [facility] Vital Signs Vital Name Observation Time Observation Value Comments Source Systolic blood 2023-03-27 20:01:00 121 mm[Hg] Univer sity of pressure [facility] Diastolic blood 2023-03-27 20:01:00 82 mm[Hg] Unive rsity of [facility] Heart rate 2023-03-27 20:01:00 76 /min [facility] Body temperature 2023-03-27 20:01:00 37.28 [facility] rate 2023-03-27 20:01:00 16 /min [facility] Body height 2023-03-27 20:01:00 144.8 cm [facility] Body weight 2023-03-27 20:01:00 105.688 kg [facility] BMI 2023-03-27 20:01:00 50.42 kg/m2 [facility] Oxygen saturation in 2023-03-27 20:01:00 100 /min [facility] blood by [facility] Pulse oximetry Branch height 2022-11-18 11:10:00 58.75 [in_i] [facility] weight 2022-11-18 11:10:00 237.0 [lb_av] Common [facility] temperature 2022-11-18 11:10:00 97.3 [degF] Common [facility] bmi 2022-11-18 11:10:00 48.27 kg/m2 [facility] oximetry 2022-11-18 11:10:00 99 % [facility] respiratory rate 2022-11-18 11:10:00 18 /min Comm on [facility] blood pressure 2022-11-18 11:10:00 124 mm[Hg] Common [facility] - systolic [facility] blood pressure 2022-11-18 11:10:00 72 mm[Hg] Common [facility] - diastolic [facility] height 2022-07-22 11:10:00 58.75 [in_i] Common [facility] weight 2022-07-22 11:10:00 237.4 [lb_av] [facility] temperature 2022-07-22 11:10:00 97.3 [degF] Common [facility] bmi 2022-07-22 11:10:00 48.35 kg/m2 [facility] oximetry 2022-07-22 11:10:00 100 % [facility] respiratory rate 2022-07-22 11:10:00 18 /min Comm on [facility] blood pressure 2022-07-22 11:10:00 118 mm[Hg] Common [facility] - systolic [facility] blood pressure 2022-07-22 11:10:00 73 mm[Hg] Common [facility] - diastolic [facility] blood pressure 2022-06-23 11:10:00 127 mm[Hg] Common [facility] - systolic [facility] blood pressure 2022-06-23 11:10:00 71 mm[Hg] Common [facility] - diastolic [facility] height 2022-06-23 11:10:00 58.75 [in_i] Common [facility] weight 2022-06-23 11:10:00 233.1 [lb_av] [facility] temperature 2022-06-23 11:10:00 98.0 [degF] Common [facility] bmi 2022-06-23 11:10:00 47.48 kg/m2 [facility] respiratory rate 2022-06-23 11:10:00 17 /min Comm on [facility] Systolic blood 2022-03-11 21:49:44 135 mm[Hg] Ludy light of [facility] Diastolic blood 2022-03-11 21:49:44 83 mm[Hg] Unive rsity of pressure [facility] Heart rate 2022-03-11 21:49:44 72 /min Universi [facility] [place] Respiratory rate 2022-03-11 21:49:44 16 /min [facility] Oxygen saturation in 2022-03-11 21:49:44 99 /min [facility] Arterial blood by [facility] Pulse oximetry Branch Body temperature 2022-03-11 17:59:00 36.17 Lennie [facility] Body height 2022-03-11 17:59:00 147.3 cm [facility] Body weight 2022-03-11 17:59:00 107 kg [facility] BMI 2022-03-11 17:59:00 49.30 kg/m2 [facility] height 2021-11-20 08:40:00 58.75 [in_i] [facility] weight 2021-11-20 08:40:00 232.5 [lb_av] [facility] temperature 2021-11-20 08:40:00 98.1 [degF] [facility] bmi 2021-11-20 08:40:00 47.35 kg/m2 [facility] oximetry 2021-11-20 08:40:00 100 % [facility] respiratory rate 2021-11-20 08:40:00 18 /min Comm on [facility] blood pressure 2021-11-20 08:40:00 132 mm[Hg] Common [facility] - systolic [facility] blood pressure 2021-11-20 08:40:00 68 mm[Hg] Common [facility] - diastolic [facility] height 2021-08-05 11:10:00 58.75 [in_i] [facility] weight 2021-08-05 11:10:00 235 [lb_av] [facility] temperature 2021-08-05 11:10:00 97.7 [degF] Common [facility] bmi 2021-08-05 11:10:00 47.86 kg/m2 Common S pirit - [facility] respiratory rate 2021-08-05 11:10:00 18 /min Comm on Spirit - [facility] blood pressure 2021-08-05 11:10:00 137 mm[Hg] Common [facility] - systolic [facility] blood pressure 2021-08-05 11:10:00 81 mm[Hg] [facility] - diastolic [facility] Heart rate 2020-10-10 14:30:00 60 /min Universi ty of [facility] Respiratory rate 2020-10-10 14:30:00 27 /min Univ ersity of [facility] Oxygen saturation in 2020-10-10 14:30:00 90 /min [facility] Arterial blood by [facility] [facility] P[facility] oximetry Branch Systolic blood 2020-10-10 14:15:00 117 mm[Hg] Univer sity of pressure [facility] Diastolic blood 2020-10-10 14:15:00 57 mm[Hg] Unive rsity of [facility] Body temperature 2020-10-10 14:15:00 37.11 Lennie Univ ersity of [facility] Body weight 2020-10-10 11:00:00 95.709 kg [facility] [place] [facility] BMI 2020-10-10 11:00:00 45.66 kg/m2 Universi ty of [facility] Body height 2020-10-09 05:11:00 144.8 cm Universi ty of [facility] Systolic blood 2019-12-28 15:25:00 115 mm[Hg] Univer sity of pressure [facility] Diastolic blood 2019-12-28 15:25:00 77 mm[Hg] Unive rsity of pressure [facility] Body height 2019-12-28 15:25:00 144.8 cm Universi ty of [facility] Body weight 2019-12-28 15:25:00 93.441 kg Universi ty of [facility] BMI 2019-12-28 15:25:00 44.58 kg/m2 Universi ty of [facility] Systolic blood 2019-12-08 14:49:00 115 mm[Hg] Univer sity of pressure [facility] Diastolic blood 2019-12-08 14:49:00 77 mm[Hg] Unive rsity of pressure [facility] Heart rate 2019-12-08 14:49:00 71 /min Universi ty of [facility] Respiratory rate 2019-12-08 14:49:00 18 /min Univ ersity of [facility] Body height 2019-12-08 14:49:00 144.8 cm Universi ty of [facility] Body weight 2019-12-08 14:49:00 93.441 kg Universi ty of [facility] BMI 2019-12-08 14:49:00 44.58 kg/m2 Universi ty of [facility] Diastolic blood 2019-06-09 14:11:00 87 mm[Hg] Unive rsity of pressure [facility] Heart rate 2019-06-09 14:11:00 75 /min Universi ty of [facility] Respiratory rate 2019-06-09 14:11:00 18 /min Univ ersity of [facility] Body height 2019-06-09 14:11:00 144.8 cm Universi ty of [facility] Body weight 2019-06-09 14:11:00 93.441 kg Universi ty of [facility] BMI 2019-06-09 14:11:00 44.58 kg/m2 Universi ty of [facility] Systolic blood 2019-06-09 14:11:00 120 mm[Hg] Univer sity of [facility] Procedures Procedure Date / Time Performing Clinician Source Performed XR FOOT 3+ VW RIGHT 2023-03-27 20:45:35 Yue Boykin [facility] CONSENT/REFUSAL FOR 2023-03-27 20:00:11 Doctor Unassigned, No [facility] [place] [facility] Name [facility] DUPLEX VENOUS LEG RIGHT 2022-03-11 20:25:00 Gianni Oreilly [facility] - BY VASCULAR LAB [facility] XR KNEE <3 VW RIGHT 2022-03-11 20:05:37 Gianni Oreilly [facility] CONSENT/REFUSAL FOR 2022-03-11 17:56:26 Doctor Unassigned, No [facility] [place] [facility] NOTICE OF PRIVACY 2022-03-11 17:52:58 Doctor Unassigned, No [facility] TROPONIN I 2020-10-10 10:26[facility]00 [facility]. METABOLIC PANEL 2020-10-10 10:26:00 [facility] ([id number]) Medical Branch CBC WITH DIFF 2020-10-10 10:26:00 [facility] PNEUMOCOCCAL ANTIGEN 2020-10-09 14:29:[facility] 2020-10-09 09:35:00 [facility] COMP. METABOLIC PANEL 2020-10-09 09:35:00 [id number] CBC WITH DIFF 2020-10-09 09:35:00 [facility] D-DIMER 2020-10-09 09:35:00 [facility] PROCALCITONIN 2020-10-09 09:35:00 [facility] COVID-19 (MOLECULAR 2020-10-09 03:40:00 Lexi Miranda [facility] TESTING [facility] NUCLEIC ACID AMPLIFICATION) URINALYSIS 2020-10-09 02:07:00 [facility] CHEST 1 VW 2020-10-09 01:11:12 [facility] ADC,CLC OR L[facility] ONLY - 2020-10-09 01:08:00 Lexi Miranda [facility] INFLUENZA A & B DIRECT Medical B ranch ANTIGEN COVID-19 (ID NOW RAPID 2020-10-09 01:08:00 Lexi Miranda [facility] TESTING) Medical Branch BASIC METABOLIC PANEL 2020-10-09 01:05:00 Lexi Miranda [facility] (NA, K, CL, CO2, Medical Branch GLUCOSE, BUN, CREATININE, CA) CBC WITH DIFF 2020-10-09 01:05:00 Lexi Miranda [facility] CONSENT/REFUSAL FOR 2020-10-08 23:49:16 Doctor Unassigned, No [facility] Name Medical Branch NOTICE OF PRIVACY 2020-10-08 23:48:59 Doctor Unassigned, No [facility] Branch EXTERNAL PROVIDER 2019-12-22 05:01:00 Doctor Unassigned, No Univ [facility] RECORDS Name Medical Branch REFERRAL- 2019-12-08 06:01:00 Doctor Unassigned, No [facility] REQUEST/RESPONSE Name Medical Branch Encounters Start End Encounter Admission Attending Care Care Encounter Source Date/Time Date/Time Type Type Clinicians Facility Department ID 2023-04-28 Outpatient Bah, STLMLC STLMLC [id number] Common 14:01:00 Mary 03480 [facility] 2023-04-27 Outpatient Bah, STLMLC STLMLC [id number] Common 11:55:00 Mary [facility] 2022-06-18 Outpatient Bah, STLMLC STLMLC [id number] Common 15:13:00 Mary [facility] 2021-11-20 Outpatient Bah, STLMLC STLMLC [id number] Common 08:49:00 Mary [facility] 2021-11-19 Outpatient Bah, STLMLC STLMLC [id number] Common 11:12:02 Mary [facility] 2021-11-12 Outpatient Bah, STLMLC STLMLC [id number] Common 11:37:00 Mary [facility] 2021-11-05 Outpatient Bah, STLMLC STLMLC [id number] Common 13:09:07 Mary 10948 [facility] 2021-11-05 Outpatient Bah, STLMLC STLMLC [id number] Common 13:08:55 Mary 86862 [facility] 2021-11-05 Outpatient STLMLC STLMLC [id number] Common 12:43:11 [id number] [facility] 2021-11-05 Outpatient STLMLC STLMLC [id number] Common 12:42:55 37046 [facility] 2021-11-05 Outpatient STLMLC STLMLC [id number] Common 12:42:09 20401 [facility] 2021-11-05 Outpatient STLMLC STLMLC [id number] Common 12:19:10 [id number] [facility] 2021-11-05 Outpatient STLMLC STLMLC [id number] Common 12:08:11 33824 [facility] 2021-11-05 Outpatient Abrahamender, STLMLC STLMLC [id number] Common 11:53:30 Laurie 25639 [facility] 2021-11-05 Outpatient Millender, STLMLC STLMLC [id number] Common 11:52:51 Laurie [id number] [facility] 2023-03-27 2023-03-27 Emergency X [facility] ERT [id number] Univers 15:06:00 16:27:00 , YUE [facility] 2023-03-27 2023-03-27 [facility] [id number] Univers 15:06:00 16:27:00 , Yue CHARLES [id number] ty [facility] 4.2.7.2.686 [facility] [phone] [place] [address] Branch 2022-11-18 2022-11-18 OFFICE STLMLC STLMLC [id number] Co mmon 00:00:00 00:00:00 VISIT Spirit ESTAB PT - CHI LEVEL 3 [facility] 2022-10-19 2022-10-19 (TEL) STLMLC STLMLC [id number] Co mmon 00:00:00 00:00:00 [facility] 2022-07-22 2022-07-22 OFFICE STLMLC STLMLC [id number] Co mmon 00:00:00 00:00:00 VISIT EST Spir it PT LEVEL 3 - [facility] 2022-06-23 2022-06-23 OFFICE STLMLC STLMLC [id number] Co mmon 00:00:00 00:00:00 VISIT EST Spir it PT LEVEL 3 - [facility] 2022-05-18 2022-05-18 (TEL) STLMLC STLMLC [id number] Co mmon 00:00:00 00:00:00 Spirit [facility] 2022-03-11 2022-03-11 Emergency X [facility] ERT [id number] Univers 13:01:00 17:13:00 GIANNI pemberton of [facility] 2022-03-11 2022-03-11 Emergency [facility] [id number] Univers 13:01:00 17:13:00 Gianni CHARLES 350.1.13.10 ity [facility] 4.2.7.2.686 [facility] [id number] [facility] 084 Branch 2022-03-11 2022-03-11 Orders Doctor SHAMAR [id number] Univers 00:00:00 00:00:00 Only Unassigned, RODNEY 350.1.13.10 ity of [facility] 4.2.7.2.686 [facility] [id number] [facility] 009 Branch 2021-11-20 2021-11-20 OFFICE STLMLC STLMLC [id number] Co mmon 00:00:00 00:00:00 VISIT EST Spir it PT LEVEL 3 - [facility] 2021-08-05 2021-08-05 (TEL) STLMLC STLMLC [id number] Co mmon 00:00:00 00:00:00 [facility] 2021-08-05 2021-08-05 OFFICE STLMLC STLMLC [id number] Co mmon 00:00:00 00:00:00 VISIT Spirit ESTAB PT - CHI LEVEL 2 [facility] 2021-05-13 2021-05-13 Outpatient STLMLC STLMLC [id number] Common 00:00:00 00:00:00 [facility] 2020-12-31 2020-12-31 Outpatient STLMLC STLMLC [id number] Common 00:00:00 00:00:00 [facility] 2020-10-28 2020-10-28 Outpatient STLMLC STLMLC [id number] Common 00:00:00 00:00:00 [facility] 2020-10-16 2020-10-16 Outpatient STLMLC STLMLC [id number] Common 00:00:00 00:00:00 [facility] 2020-10-14 2020-10-14 Transition Nicolette Austin 1.2.840.114 [id number] Univers 00:00:00 00:00:00 of Care Elza Redd 350.1.13.10 it[place] [id number] [facility] 403 Branch 2020-10-08 2020-10-10 [facility] Lexi Miranda [facility] 1.2.840. 114 [id number] Univers 18:06:00 16:09:00 [facility] 350.1.13.10 [place] [id number] [facility] 080 Branch 2020-10-08 2020-10-10 Inpatient [facility] [id number] Univers 18:06:00 16:09:00 MERCY ity of [facility] 2020-10-08 2020-10-08 Orders Doctor SHAMAR 1.2.840.114 [id number] Univers 00:00:00 00:00:00 Only Unassigned, RODNEY 350.1.13.10 ity of [place] [facility] 4.2.7.2.686 Alexandr as [id number] [facility] 009 Branch 2020-07-19 2020-07-19 Outpatient [facility] [id number] Common 00:00:00 00:00:00 [facility] 2020-03-01 2020-03-01 Telephone FranciscoRUST 1.2.840.114 [id number] Univers 00:00:00 00:00:00 [facility] [employer] 350.1.13.10 it y of Surgical 4.2.7.2.686 Alexandr as Specialti [id number] Hi dical es 198 [facility] 2020-02-29 2020-02-29 Refill FranciscoRUST [id number] Univers 00:00:00 00:00:00 [facility] 350.1.13.10 it y of Surgical 4.2.7.2.686 Alexandr as Specialti [phone] Hi dical es 198 [facility] 2020-01-09 2020-01-09 Outpatient [facility] [id number] Common 11:00:00 11:00:00 t [facility] 2019-12-28 2019-12-28 Office [place] [facility] [id number] Univers 10:22:37 10:37:41 Visit Alexx Bell [facility] 350.1.13.10 it y of Surgical 4.2.7.2.686 Alexandr as Specialti [id number] Hi dical es 198 [facility] 2019-12-28 2019-12-28 Outpatient R FRANCISCO [facility] [id number] Univers 10:30:00 10:30:[address] [facility] 2019-12-28 2019-12-28 Letter FranciscoRUST [id number] Univers 00:00:00 00:00:00 (Out) Alexx Bell [facility] 350.1.13.10 it y of Surgical 4.2.7.2.686 Alexandr as Specialti [phone] Hi dical es 198 [facility] 2019-12-22 2019-12-22 Orders Doctor SHAMAR 1.2.840.114 [id number] Univers 00:00:00 00:00:00 Only Unassigned, RODNEY 350.1.13.10 ity of [place] [facility] 4.2.7.2.686 Alexandr as [id number] [address] 2019-12-08 2019-12-08 Office [place] [facility] [id number] Univers 08:49:03 09:16:12 Visit Alexx Bell [facility] 350.1.13.10 it y of Surgical 4.2.7.2.686 Alexandr as Specialti [id number] Hi dical es 198 [facility] 2019-12-08 2019-12-08 Outpatient R FRANCISCO [facility] [id number] Univers 08:45:00 08:45:[address] [facility] 2019-12-08 2019-12-08 Telephone [place] [facility] 1.2.840.114 [id number] Univers 00:00:00 00:00:00 Alexx Bell [facility] 350.1.13.10 it y of Surgical 4.2.7.2.686 Alexandr as Specialti [phone] Hi dical es 198 [facility] 2019-12-08 2019-12-08 Orders Doctor SHAMAR 1.2.840.114 [id number] Univers 00:00:00 00:00:00 Only Unassigned, RODNEY 350.1.13.10 ity of [place] [facility] 4.2.7.2.686 Alexandr as [id number] [address] 2019-12-06 2019-12-06 Outpatient Rosalinda Tellezt [id number] Common 10:40:00 10:40:00 [facility] [address] [facility] 2019-08-10 2019-08-10 Outpatient Rosalinda Tellezt [id number] Common 10:14:00 10:14:00 [facility] [address] [facility] 2019-06-14 2019-06-14 Outpatient Rosalinda Tellezt [id number] Common 09:00:00 09:00:[address] [facility] [address] [facility] 2019-06-09 2019-06-09 Office Francisco SDNUBIA [id number] [facility] 08:55:19 09:42:20 Visit Alexx [facility] 350.1.13.10 it y of Surgical 4.2.7.2.686 Alexandr as Specialti [phone] Hi dical es 198 [facility] 2019-06-09 2019-06-09 Telephone Claudette SDNUBIA [id number] Univers 00:00:00 00:00:00 Nik Rush Tatum 350.1.13.10 i ty [place] [phone] Hi dical nal 198 [facility] 2018-12-13 2018-12-13 Outpatient Rosalinda Tellezt [id number] Common 09:00:00 09:00:[address] [facility] [address] [facility] 2018-07-11 2018-07-11 Outpatient Rosalinda Shah [id number] Common 08:30:00 08:30:00 [facility] 2018-03-18 2018-03-18 Outpatient Rosalinda Shah [id number] Common 15:30:00 15:30:00 [facility] 2018-01-26 2018-01-26 Outpatient Rosalinda Shah [id number] Common 08:30:00 08:30:00 [facility] Results Test Description Test Time Test Comments [...] 33.0 g/dL 31.6-35.1 RDW-SD (test code = 38206-3) 41.4 fL 39-49.9 RDW-CV (test code = 788-0) 13.7 % 12-15.5 PLT (test code = 777-3) See_Comment [Au tomated message] The system which ge nerated this result transmit megan reference range: 166 - 35 8 10*3/?L. The reference range was not used to interpret th is result as normal/abnormal . MPV (test code = 83449-3) 11.3 fL 9.5-12.9 NRBC/100 WBC (test code = See_Comment [ Automated message] The 9279337613) system which ge nerated this result transmit megan reference range: 0.0 - 10 .0 /100 WBCs. The reference r shannon was not used to interpr et this result as normal/abnor mal. NRBC x10^3 (test code = <0.01 See_Comment [Au tomated message] The 3765713646) system which ge nerated this result transmit megan reference range: 10*3/?L. The reference range was not u sed to interpret this result as normal/abnormal . GRAN MAT (NEUT) % (test code 67.3 % = 770-8) IMM GRAN % (test code = 0.80 % 6977135140) LYMPH % (test code = 736-9) 19.2 % MONO % (test code = 5905-5) 12.7 % EOS % (test code = 713-8) 0.0 % BASO % (test code = 706-2) 0.0 % GRAN MAT x10^3(ANC) (test 3.19 10*3/uL 1.88-7.09 code = 0852295788) IMM GRAN x10^3 (test code = 0.04 10*3/uL 0-0.06 3581307458) LYMPH x10^3 (test code = 0.91 10*3/uL 1.32-3.29 L 731-0) MONO x10^3 (test code = 0.60 10*3/uL 0.33-0.92 742-7) EOS x10^3 (test code = <0.03 0.03-0.39 L 711-2) BASO x10^3 (test code = <0.03 0.01-0.07 704-7) Lab Interpretation (test Abnormal code = 31127-5) [facility] [id number] 11:48:00 Test Item Value Reference Range Interpretation Comments TROPONIN I (test <0.012 See_Comment [Automated code = 7801701373) message] The system which generated this result [...] ? Lab Interpretation Normal (test code = 37399-4) [facility] (78535)2020-10-10 11:41:00 Test Item Value Reference Range Interpretation Comments NA (test code = 141 mmol/L 135-145 7984908725) K (test code = 4.2 mmol/L 3.5-5 1400432852) CL (test code = 106 mmol/L 98-108 4689900294) CO2 TOTAL (test code = 26 mmol/L - 8731903701) AGAP (test code = 2-16 9438379388) BUN (test code = 20 mg/dL 7-23 4683184695) GLUCOSE (test code = 115 mg/dL 70-110 H 2124400944) CREATININE (test code = 1.10 mg/dL 0.5-1.04 H 9125809565) TOTAL BILI (test code = 0.7 mg/dL 0.1-1.8 0629026632) CALCIUM (test code = 9.2 mg/dL 8.6-10.6 0385128067) T PROTEIN (test code = 7.9 g/dL 6.3-8.2 4588271427) ALBUMIN (test code = 4.0 g/dL 3.5-5 5475675177) ALK PHOS (test code = 93 U/L 34-122 4129212602) ALTv (test code = 17 U/L 5-35 1742-6) AST(SGOT) (test code = 34 U/L 13-40 9692353906) eGFR Calculation mL/min/1.73m2 (Non-) (test code = 8737748408) eGFR Calculation mL/min/1.73m2 () (test code = 6691418415) VALERIY (test code = VALERIY) Association of [...] tests). Lab Interpretation Abnormal (test code = 96428-0) [facility]LEGION[facility]LLA URINARY ANTIGEN [id number] 23:36:00 Test Item Value Reference Range Interpretation Comments Legionella Urinary Negative Negative Antigen (test code = 2428046859) VALERIY (test code = VALERIY) Negative for [...] test. Lab Interpretation (test Normal code = 65798-2) [facility]NE[facility] [id number] 23:36:00 Test Item Value Reference Range Interpretation Comments S. pneumoniae antigen (test code = Negative Negative 7233461660) Lab Interpretation (test code = Normal 09050-9) [facility]2020-12-30 16:59:00 Test Item Value Reference Range Interpretation Comments Procalcitonin (test 0.04 ng/mL <0.07 code = 2775972760) VALERIY (test code = VALERIY) INTERPRETATION OF [...] lung abscess/empyema. For further information please refer to:[email or web address] Lab Interpretation Normal (test code = 16630-2) [facility] COVID-19 [id number] 12:28:00 Test Item Value Reference Range Interpretation Comments SARS-CoV-2 NAAT (test Positive Not Detected A code = 42869-5) VALERIY (test code = VALERIY) Strobe Aptima SARS-CoV-2 Assay is a nucleic acid amplification test intended for the qualitative detection of RNA from SARS-CoV-2 from nasopharyngeal (FOUNDATION COORDINATOR) specimens. ?It is used under Emergency Use [...] indicated. Lab Interpretation Abnormal (test code = 98892-1) [facility] [id number] 11:41:00 Test Item Value Reference Range Interpretation Comments TROPONIN I (test <0.012 See_Comment [Automated code = 6553204474) message] The system which generated this result [...] ? Lab Interpretation Normal (test code = 48757-5) [facility] (61268)2020-10-09 11:32:00 Test Item Value Reference Range Interpretation Comments NA (test code = 139 mmol/L 135-145 6996804908) K (test code = 4.7 mmol/L 3.5-5 3424280257) CL (test code = 105 mmol/L 98-108 7140640937) CO2 TOTAL (test code = 25 mmol/L 23-31 9008540028) AGAP (test code = 2-16 1591334706) BUN (test code = 18 mg/dL 7-23 4083597290) GLUCOSE (test code = 156 mg/dL 70-110 H 2916961561) CREATININE (test code = 1.18 mg/dL 0.5-1.04 H 5639451808) TOTAL BILI (test code = 0.7 mg/dL 0.1-1.7 2537584990) CALCIUM (test code = 8.8 mg/dL 8.6-10.6 1719561863) T PROTEIN (test code = 7.6 g/dL 6.3-8.2 6985612985) ALBUMIN (test code = 3.9 g/dL 3.5-5 4724021712) ALK PHOS (test code = 96 U/L 34-122 4337026285) ALTv (test code = 15 U/L 5-35 2-6) AST(SGOT) (test code = 36 U/L 13-40 8387874528) eGFR Calculation mL/min/1.73m2 (Non-) (test code = 3952631001) eGFR Calculation mL/min/1.73m2 () (test code = 7365332900) VALERIY (test code = VALERIY) Association of [...] tests). Lab Interpretation Abnormal (test code = 94039-0) [facility]ano[facility]-[id number] 11:19:00 Test Item Value Reference Interpretation Comments Range D-DIMER (test code = See_Comment H [Autom ated 1105326685) message] The system which generated this result [...] diagnosis. Lab Interpretation Abnormal (test code = 30050-6) [facility] with [id number] 10:38:00 Test Item Value Reference Range Interpretation Comments WBC (test code = See_Comment [Automated 9190-2) message] The sy stem which generated this result transmitted reference range : 4.30 - 11.10 10*3/?L. The reference range was not used to interpret this result as normal/abnormal . RBC (test code = See_Comment [Automated 2498) message] The sy stem which generated this [...] RDW-SD (test code = 41.6 fL 39-49.9 04864-0) RDW-CV (test code = 13.9 % 12-15.5 788-0) PLT (test code = See_Comment [Automated 777-3) message] The sy stem which generated this result transmitted reference range : 166 - 358 10*3/ ?L. The reference r shannon was not used to interpret this result as normal/abnormal . MPV (test code = 11.6 fL 9.5-12.9 55529-0) NRBC/100 WBC (test See_Comment [Automat ed code = 8777702061) message] The system which generated this result transmitted reference range : 0.0 - 10.0 /100 WBCs. The refer ence range was not u sed to interpret th is result as normal/abnormal . NRBC x10^3 (test code <0.01 See_Comment [Auto mated = 7138786783) message] The s ystem which generated this result transmitted reference range : 10*3/?L. The reference range was not used to interpret this result as normal/abnormal . GRAN MAT (NEUT) % 87.1 % (test code = 770-8) IMM GRAN % (test code 0.60 % = 0604593233) LYMPH % (test code = 9.8 % 736-9) MONO % (test code = 2.5 % 5905-5) EOS % (test code = 0.0 % 713-8) BASO % (test code = 0.0 % 706-2) GRAN MAT x10^3(ANC) 4.17 10*3/uL 1.88-7.09 (test code = 5114927766) IMM GRAN x10^3 (test 0.03 10*3/uL 0-0.06 code = 3011833118) LYMPH x10^3 (test code 0.47 10*3/uL 1.32-3.29 L = 731-0) MONO x10^3 (test code 0.12 10*3/uL 0.33-0.92 L = 742-7) EOS x10^3 (test code = <0.03 0.03-0.39 L 711-2) BASO x10^3 (test code <0.03 0.01-0.07 = 704-7) Lab Interpretation Abnormal (test code = 08361-2) [facility]ano[facility]inalysis2020-12-30 02:44:00 Test Item Value Reference Range Interpretation Comments APPEARANCE (test code = Hazy Clear A 1530807127) COLOR (test code = Yellow Yellow 9033837198) PH (test code = 4.8-8.0 0622843198) SP GRAVITY (test code = 1.003-1.030 8364961632) GLU U QUAL (test code = Normal Normal 1830817581) BLOOD (test code = Negative Negative 0965100981) KETONES (test code = Negative Negative 2933570945) PROTEIN (test code = Negative Negative 2887-8) UROBILIN (test code = 4.0 mg/dL Normal A 1125947628) BILIRUBIN (test code = Negative Negative 5811329874) NITRITE (test code = Negative Negative 4612732147) LEUK LUC (test code = 25/uL Negative A 9159611721) RBC/HPF (test code = <1 See_Comment [Autom ated message] 9711946200) The system [employer] generated this result transmit megan reference range : 0 - 3 HPF. The refe rence range was not u sed to interpret th is result as normal/abnormal . WBC/HPF (test code = See_Comment [Autom ated message] 7774509417) The system [employer] generated this result transmit megan reference range : 0 - 5 HPF. The refe rence range was not u sed to interpret th is result as normal/abnormal . BACTERIA (test code = Few Negative A 0282925720) SQ EPITH (test code = HPF 2506479453) Lab Interpretation (test Abnormal code = 67017-8) [facility] - INFLUENZA A & B DIRECT [id number] 02:00:00 Test Item Value Reference Range Interpretation Comments Influenza A (test code = 54267-1) Negative Negative Influenza B (test code = 02332-6) Negative Negative Lab Interpretation (test code = Normal 72633-8) [facility]ID NOW RAPID TESTING)2020-10-09 01:39:00 Test Item Value Reference Range Interpretation Comments SARS-CoV-2 Rapid ID NOW Not Detected Not Detected (test code = 57636-9) VALERIY (test code = VALERIY) ID NOW COVID-19 Assay is an isothermal nucleic acid amplification test intended for the qualitative detection of nucleic acid from SARS-CoV-2 viral RNA in nasopharyngeal ([employer]OUNDATION [employer]ORDIN[employer]) specimens. It is used under Emergency Use [...] indicated. Lab Interpretation Normal (test code = 30173-3) [facility] (NA, K, CL, CO2, GLUCOSE, BUN, CREATININE, CA)2020-10-09 01:34:00 Test Item Value Reference Range Interpretation Comments NA (test code = 137 mmol/L 135-145 5629432085) K (test code = 4.3 mmol/L 3.5-5 6516832515) CL (test code = 103 mmol/L 98-108 4014348691) CO2 TOTAL (test code = 25 mmol/L 23-31 1808438982) AGAP (test code = 2-16 1586721815) BUN (test code = 17 mg/dL 7-23 8013649703) GLUCOSE (test code = 107 mg/dL 70-110 8676584210) CREATININE (test code = 1.10 mg/dL 0.5-1.04 H 9334510385) CALCIUM (test code = 8.6 mg/dL 8.6-10.6 4432745378) eGFR Calculation mL/min/1.73m2 (Non-) (test code = 3306174543) eGFR Calculation mL/min/1.73m2 () (test code = 0774139371) VALERIY (test code = VALERIY) Association of [...] tests). Lab Interpretation Abnormal (test code = 43005-9) [facility] 1 [id number] 01:29:28Impression: Bilateral lung opacities compatible with known Covid 19pneumonia.Exam: XR CHEST 10/08/2020 6:51 PM Clinical History: COVID Comparison: None Technique: frontal view of the chest Findings: Bilateral ill-defined patchy airspace and streaky opacities suggestive ofatypical pneumonia including Covid 19.No pleural effusion. ?No pneumothorax. The cardiac size is within normal limits. No acute osseous abnormality. [facility], Radiant Results Inft User - 10/08/2020 7:30 PM CSTExam: XR CHEST 1 VW 10/08/2020 6:51 PMClinical History: COVID Comparison: NoneTechnique: frontal view of the chestFindings:Bilateral ill-defined patchy airspace and streaky opacities suggestive ofatypical pneumonia includingCovid 19.No pleural effusion. No pneumothorax. The cardiac size is within normal limits. No acute osseous abnormality.IMPRESSIONImpression: Bilateral lung opacities compatible with known Covid 19pneumonia.[facility] with [id number] 01:16:00 Test Item Value Reference Range Interpretation Comments WBC (test code = See_Comment [Automated 5242-2) message] The sy stem which generated this result transmitted reference range : 4.30 - 11.10 10*3/?L. The reference range was not used to interpret this result as normal/abnormal . RBC (test code = See_Comment [Automated 069-8) message] The sy stem which generated this [...] RDW-SD (test code = 42.1 fL 39-49.9 95443-9) RDW-CV (test code = 13.9 % 12-15.5 788-0) PLT (test code = See_Comment [Automated 777-3) message] The sy stem which generated this result transmitted reference range : 166 - 358 10*3/ ?L. The reference r shannon was not used to interpret this result as normal/abnormal . MPV (test code = 11.3 fL 9.5-12.9 56150-5) NRBC/100 WBC (test See_Comment [Automat ed code = 7662076504) message] The system which generated this result transmitted reference range : 0.0 - 10.0 /100 WBCs. The refer ence range was not u sed to interpret th is result as normal/abnormal . NRBC x10^3 (test code <0.01 See_Comment [Auto mated = 6989249963) message] The s ystem which generated this result transmitted reference range : 10*3/?L. The reference range was not used to interpret this result as normal/abnormal . GRAN MAT (NEUT) % 70.3 % (test code = 770-8) IMM GRAN % (test code 0.70 % = 2266930633) LYMPH % (test code = 16.1 % 736-9) MONO % (test code = 11.8 % 5905-5) EOS % (test code = 0.9 % 713-8) BASO % (test code = 0.2 % 706-2) GRAN MAT x10^3(ANC) 3.93 10*3/uL 1.88-7.09 (test code = 3911411061) IMM GRAN x10^3 (test 0.04 10*3/uL 0-0.06 code = 2592473650) LYMPH x10^3 (test code 0.90 10*3/uL 1.32-3.29 L = 731-0) MONO x10^3 (test code 0.66 10*3/uL 0.33-0.92 = 742-7) EOS x10^3 (test code = 0.05 10*3/uL 0.03-0.39 711-2) BASO x10^3 (test code <0.03 0.01-0.07 = 704-7) Lab Interpretation Abnormal (test code = 96766-7) [facility]
--- NOTE | 2023-07-29 12:51 | ER ---
Nurse's Notes [facility] Name: Susana Lane Age: 57 yrs Sex: Female : 1965 Arrival Date: 07/29/2023 Time: 12:37 Bed 12 Private MD: Diagnosis: Gout, Left foot Presentation: 07/29 12:42 Chief complaint: Patient states: right foot swelling and pain started two days ago. Pt rs5 denies recent falls or injury to affected extremity. Coronavirus screen: At this time, the client does not indicate any symptoms associated with coronavirus-19. Ebola Screen: No symptoms or risks identified at this time. Initial Sepsis Screen: Does the patient meet any 2 criteria? No. Patient's initial sepsis screen is negative. Does the patient have a suspected source of infection? No. Patient's initial sepsis screen is negative. Risk Assessment: Do you want to hurt yourself or someone else? Patient reports no desire to harm self or others. Onset of symptoms was July 28, 2023. 12:42 Method Of Arrival: Ambulatory rs5 12:42 Acuity: JAKOB 4 rs5 Triage Assessment: 12:52 General: Appears Behavior is calm, cooperative. rs5 Historical: - Allergies: 12:50 No Known Allergies; rs5 - PMHx: 12:50 Hypertension; rs5 - PSHx: 12:50 None; rs5 - Immunization history:: Adult Immunizations unknown. - Social history:: Smoking status: Patient denies any tobacco usage or history of. Screenin:52 [facility] ED Fall Risk Assessment (Adult) History of falling in the last 3 months, rs5 including since admission No falls in past 3 months (0 pts) Confusion or Disorientation No (0 pts) Intoxicated or Sedated No (0 pts) Impaired Gait Yes (1 pt) Mobility Assist Device Used Yes (1 pt) Altered Elimination No (0 pt) Score/Fall Risk Level 0 - 2 = Low Risk Oriented to surroundings, Maintained a safe environment. 12:52 Abuse screen: Denies threats or abuse. Nutritional screening: No deficits noted. rs5 Tuberculosis screening: No symptoms or risk factors identified. Assessment: 12:52 Pain: Complains of pain in right foot Pain does not radiate. Pain currently is 5 out of rs5 10 on a pain scale. Quality of pain is described as aching, Pain began 2-3 days ago. Is continuous, Aggravated by increased activity, weight bearing. 12:52 General: Appears in no apparent distress. uncomfortable, Behavior is calm, cooperative. rs5 12:52 Neuro: Level of Consciousness is awake, alert, obeys commands, Oriented to person, rs5 place, time, situation. Cardiovascular: Heart tones S1 S2 present Rhythm is regular. Respiratory: Airway is patent Respiratory effort is even, unlabored, Respiratory pattern is regular, symmetrical, Breath sounds are clear bilaterally. GI: Abdomen is round non-distended, Bowel sounds present X 4 quads. Abd is soft and non tender X 4 quads. : No signs and/or symptoms were reported regarding the genitourinary system. EENT: No signs and/or symptoms were reported regarding the EENT system. Derm: Skin is dry, Skin is normal, Skin temperature is warm. Musculoskeletal: Range of motion: intact in all extremities. 13:10 Reassessment: Patient and/or family updated on plan of care and expected duration. Pain rs5 level reassessed. Patient is alert, oriented x 3, equal unlabored respirations, skin warm/dry/pink. Vital Signs: 12:42 BP 118 / 78; Pulse 67; Resp 17; Temp 97.7; Pulse Ox 99% ; Weight 102.97 kg (R); Height rs5 4 ft. 9 in. (R); 13:00 BP 120 / 81; Pulse 70; Resp 17; Pulse Ox 99% on R/A; rs5 12:42 Body Mass Index 49.12 (102.97 kg, 144.78 cm) rs5 ED Course: 12:39 Patient arrived in ED. mg5 12:43 Susana Dial FNP is PHCP. jh7 12:43 Jesus Manuel Najera MD is Attending Physician. jh7 12:49 Triage completed. rs5 12:50 Eyad Lunsford, KRISTI is Primary Nurse. rs5 12:52 Patient has correct armband on for positive identification. Bed in low position. Call rs5 light in reach. Side rails up X2. 12:52 Arm band placed on right wrist. rs5 13:10 No provider procedures requiring assistance completed. rs5 13:10 Patient did not have IV access during this emergency room visit. rs5 Administered Medications: 12:56 Drug: Dexamethasone IM 10 mg IM once Route: IM; Site: left deltoid; rs5 13:10 Follow up: Response: No adverse reaction rs5 Medication: 13:10 VIS not applicable for this client. rs5 Outcome: 12:50 Discharge ordered by . elida 13:10 Discharged to home via wheelchair, rs5 13:10 Condition: stable 13:10 Discharge instructions given to patient, Instructed on discharge instructions, follow up and referral plans. medication usage, Demonstrated understanding of instructions, follow-up care, medications, Prescriptions given X 1, 13:12 Patient left the ED. rs5 Signatures: Susana Dial FNP FNP jh7 Sotelo, Ricky RN RN rs5 Loreta Gambino 5
--- NOTE | 2023-07-29 12:51 | EDPHYS ---
Physician Documentation [facility] Name: Susana Lane Age: 57 yrs Sex: Female : 1965 Arrival Date: 07/29/2023 Time: 12:37 Bed 12 Private MD: ED Physician Jesus Manuel Najera HPI: 07/29 12:50 This 57 yrs old Black Female presents to ER via Ambulatory with complaints of Foot Pain jh7 - Swelling. 12:50 The patient presents with pain, that is acute, swelling. The complaints affect the L jh7 great toe. Onset: The symptoms/episode began/occurred 3 day(s) ago. Patient reports left foot swelling and pain over the left great toe since Wednesday. Patient reports pain with ambulation. Denies any trauma/injury. History of hypertension.. Historical: - Allergies: 12:50 No Known Allergies; rs5 - PMHx: 12:50 Hypertension; rs5 - PSHx: 12:50 None; rs5 - Immunization history:: Adult Immunizations unknown. - Social history:: Smoking status: Patient denies any tobacco usage or history of. ROS: 12:50 Constitutional: Negative for fever, chills, and weight loss, Eyes: Negative for injury, jh7 pain, redness, and discharge, Neck: Negative for injury, pain, and swelling, Cardiovascular: Negative for chest pain, palpitations, and edema, Respiratory: Negative for shortness of breath, cough, wheezing, and pleuritic chest pain, Skin: Negative for injury, rash, and discoloration, Neuro: Negative for headache, weakness, numbness, tingling, and seizure, 12:50 MS/extremity: Positive for pain, swelling, tenderness, of the left foot, 12:50 All other systems are negative, Exam: 12:50 Constitutional: This is a well developed, well nourished patient who is awake, alert, jh7 and in no acute distress. Head/Face: Normocephalic, atraumatic. Neck: Trachea midline, no thyromegaly or masses palpated, and no cervical lymphadenopathy. Supple, full range of motion without nuchal rigidity, or vertebral point tenderness. No Meningismus. Cardiovascular: Regular rate and rhythm with a normal S1 and S2. No gallops, murmurs, or rubs. Normal PMI, no JVD. No pulse deficits. Respiratory: Lungs have equal breath sounds bilaterally, clear to auscultation and percussion. No rales, rhonchi or wheezes noted. No increased work of breathing, no retractions or nasal flaring. Abdomen/GI: Soft, non-tender, with normal bowel sounds. No distension or tympany. No guarding or rebound. No evidence of tenderness throughout. Back: No spinal tenderness. No costovertebral tenderness. Full range of motion. Skin: Warm, dry with normal turgor. Normal color with no rashes, no lesions, and no evidence of cellulitis. Neuro: Awake and alert, GCS 15, oriented to person, place, time, and situation. Sensory grossly intact. 12:50 Musculoskeletal/extremity: Extremities: noted in the left foot: pain, swelling, ROM: limited active range of motion due to pain, in the left foot, Circulation is intact in all extremities. Perfusion: the extremity is normally perfused throughout, pink, warm, with brisk capillary refill, Sensation intact. Diffuse swelling noted over the dorsum of the left foot with tenderness noted over the left great toe. skin temperature warm with no difference in comparison to the other foot.. Vital Signs: 12:42 BP 118 / 78; Pulse 67; Resp 17; Temp 97.7; Pulse Ox 99% ; Weight 102.97 kg (R); Height rs5 4 ft. 9 in. (R); 13:00 BP 120 / 81; Pulse 70; Resp 17; Pulse Ox 99% on R/A; rs5 12:42 Body Mass Index 49.12 (102.97 kg, 144.78 cm) rs5 MDM: 12:43 Patient medically screened. [facility] 13:05 Differential diagnosis: tendonitis, Gout, sprain, cellulitis. Data reviewed: vital [facility] signs, nurses notes. I considered the following discharge prescriptions or medication management in the emergency department Medications were administered in the Emergency Department. See MAR. Care significantly affected by the following chronic conditions: Hypertension. Counseling: I had a detailed discussion with the patient and/or guardian regarding the historical points, exam findings, and any diagnostic results supporting the discharge/admit diagnosis, to return to the emergency department if symptoms worsen or persist or if there are any questions or concerns that arise at home. Administered Medications: 12:56 Drug: Dexamethasone IM 10 mg IM once Route: IM; Site: left deltoid; rs5 13:10 Follow up: Response: No adverse reaction rs5 Disposition Summary: 07/29/23 12:50 Discharge Ordered Notes: Location: Home [facility] Problem: new [facility] Symptoms: are unchanged jh7 Condition: Stable jh7 Diagnosis - Gout, Left foot jh7 Followup: [facility] - With: Private Physician - When: 2 - 3 days - Reason: Recheck today's complaints Discharge Instructions: - Discharge Summary Sheet [facility] - Gout [facility] Forms: - Work release form ld1 - Medication Reconciliation Form 7 - Thank You Letter [facility] - Patient Portal Instructions [facility] - Leadership Thank You Letter [facility] Prescriptions: - indomethacin 50 mg Oral capsule - take 1 capsule ORAL route 3 times per day for 7 days administer with food or [facility] milk; 21 capsule; Refills: 0, Product Selection Permitted Signatures: Susana Dial, PAPER MILL MANAGER PAPER MILL MANAGER 7 Eyad Lunsford RN RN rs5 Corrections: (The following items were deleted from the chart) 13:54 12:50 Musculoskeletal/extremity: Extremities: noted in the left foot: pain, swelling, jh7 ROM: limited active range of motion due to pain, in the left foot, Circulation is intact in all extremities. Perfusion: the extremity is normally perfused throughout, pink, warm, with brisk capillary refill, Sensation intact. Diffuse swelling noted over the dorsum of the left foot with tenderness noted over the left great toe.. jh7
[2023-07-29] MEDS ORDERED: dexAMETHasone 10 MG/ML VIAL ONE (13:08)
[2023-07-29 13:16] VITALS: BP 118/78; TEMP 97.7; O2SAT 99
== END 2023-07-29 13:12 | disposition home or self-care (01) ==
LOC: ER 12:37
DX: M10.9 Gout, unspecified (principal)
CPT/HCPCS: 96372; 99284; J1100

== ENCOUNTER 2024-10-30 13:28 | Emergency (ER) | payer OTHER, SELFPAY ==
--- OUTSIDE RECORDS SUMMARY | 2024-10-30 13:32 | XMS REPORT | Continuity of Care Document ---
Author Name Unknown Address [address] [facility] [address] [place] [address] [facility] thconnect Address [address] [place] [address] [address] [place] [address] Care Team Providers Care Medical Insurance Collector Name Role Phone MARY BAH Primary Care Physician Unavailab Mary Guadarrama Attending Clinician Unavailable Laurie Holland Attending Clinician Unavailable YUE BOYKIN Attending Clinician UnavailYue Olsen MD Attending Clinician [phone] GIANNI OREILLY Attending Clinician Unavailable Gianni Oreilly NP Attending Clinician [phone] Doctor Unassigned, [place] Attending Clinician U Elza Acosta Attending Clinician [phone] Lexi Philip Attending Clinician [phone] Luke Miller MD Attending Clinician [phone] LUKE MILLER Attending Clinician Unavailable Alexx Singh MD Attending Clinician [phone] ALEXX SINGH Attending Clinician UnavailNik Solis Attending Clinician [phone] YUE BOYKIN Admitting Clinician UnavailGIANNI Howe Admitting Clinician Unavailable Luke Miller MD Admitting Clinician [phone] LUKE MILLER Admitting Clinician Unavailable Payers Payer Name Policy Type Policy Number Effective Date Expirati on Date Source COVID19 HRSA UNINSURED [id number] 2020 00:00:00 2020 00:00:00 Problems Condition Name Condition Details Condition Category Status Onset Date Resolution Date Last Treatment Date Treating Clinician Comments Source Pneumonia due to COVID-19 virus Pneumonia due to COVID-19 virus Disease Active 2019-10 00:00: 00 [facility] Atypical pneumonia Atypical pneumonia Disease Active 2019-10 00:00: 00 [facility] [id number] Abnormal laboratory test Problem [facility] [id number] Prediabete s Problem [facility] Hypertensi on Hypertensi on, unspecifie d type Problem [facility] [id number] Hyperglyce sherry Problem [facility] [id number] Insomnia, unspecifie d type Problem [facility] Allergic rhinitis Allergic rhinitis Problem [facility] [id number] Hyperchole sterolemia Problem [facility] [id number] Bereavemen t Problem [facility] [id number] Chest tightness Problem [facility] [id number] Acute pain of left shoulder Problem [facility] [id number] Essential hypertensi on Problem [facility] [id number] Morbid (severe) obesity due to excess calories Problem [facility] [id number] Difficulty sleeping Problem [facility] [id number] Elevated serum creatinine Problem [facility] [id number] Morbid obesity Problem [facility] [id number] Anxiety Problem [facility] [id number] Left-sided thoracic back pain, unspecifie d chronicity Problem [facility] [id number] Dietary counseling and surveillan ce Problem [facility] [id number] Pain in left shoulder Problem [facility] [id number] Bilateral carpal tunnel syndrome Problem [facility] Allergies, Adverse Reactions, Alerts Allergy Name Allergy Type Status Severity Reaction(s) Onset Date Inactive Date Treating Clinician Comments Source NO KNOWN ALLERGIE S Drug Class Active [facility] Social History Social Habit Start Date Stop Date Quantity Comments Source History of Tobacco Use [facility] Sex Assigned At [facility] Exposure to SARS-CoV-2 (event) 2022-03-01 00:00:00 2022-03-11 12:53:00 Not sure [facility] Tobacco use and exposure 2019-12-08 00:00:00 2019-12-08 00:00:00 Smokeless tobacco non-user [facility] Smoking Status Start Date Stop Date Source Unknown if ever smoked Unive [facility] Never smoked tobacco [facility] Medications Ordered Medication Name Filled Medication Name Start Date Stop Date Current Medication? Ordering Clinician Indication Dosage Frequency Signature (SIG) Comments Components Source indomethaci n (INDOCIN) capsule 50 mg 03-27 20:16: 00 03-27 21:19 :00 No 50mg 50 mg, Oral, ONCE, 1 dose, On 03/27/23 at 1530, GASPER [facility] indomethaci n 25 mg capsule 03-27 00:00: 00 Yes [id number] 25mg Take 1 capsule by mouth 3 (three) times daily as needed for Pain or Inflammati on. [facility] methylPREDN ISolone 4 mg tablets 03-12 00:00: 00 Yes [id number] Take by mouth SEE-INSTRU CTIONS. follow package directions [facility] dexamethaso ne (DECADRON PHOSPHATE) injection 10 mg 03-11 21:00: 00 03-11 21:00 :00 No 10mg 10 mg, Intramuscu lar, ONCE, 1 dose, On Wed03/11/22 at 1600, Routine [facility] ketorolac (TORADOL) injection 30 mg 03-11 21:00: 00 03-11 21:43 :00 No 30mg 30 mg, Intramuscu lar, ONCE, 1 dose, On Wed03/11/22 at 1600, GASPER [facility] acetaminoph en-codeine (TYLENOL-CO DEINE #3) 300-30 mg tablet 03-11 16:17: 43 03-11 00:00 :00 No 1{tbl} Take 1 tablet by mouth every 4 (four) hours as needed. [facility] ketorolac 10 mg tablet 03-11 00:00: 00 Yes [id number] 10mg Take 1 tablet by mouth every 6 (six) hours as needed for Pain (scale 1-3) or Pain (scale 4-6). [facility] traMADoL 50 mg tablet 03-11 00:00: 00 03-19 04:59 :00 No [id number] 50mg Take 1 tablet by mouth every 6 (six) hours as needed for Pain (scale 4-6) or Pain (scale 7-10) for up to 7 days. Indication s: acute pain [facility] acetaminoph en-codeine (TYLENOL-CO DEINE #3) 300-30 mg tablet 2019-10 22:23: 28 Yes 1{tbl} Take 1 tablet by mouth every 4 (four) hours as needed. [facility] LISINOPRIL ORAL 2019-10 21:43: 00 10-10 00:00 :00 No 10mg Take 10 mg by mouth daily. [facility] acetaminoph en-codeine (TYLENOL-CO DEINE #3) 300-30 mg tablet 2019-10 16:23: 28 Yes 1{tbl} Take 1 tablet by mouth every 4 (four) hours as needed. [facility] methylPREDN ISolone 4 mg tablets 2019-10 00:00: 00 03-11 00:00 :00 No [id number] Take by mouth SEE-INSTRU CTIONS. follow package directions [facility] dexamethaso ne (DECADRON PHOSPHATE) injection 6 mg 2019-10 15:00: 00 Yes 6mg 6 mg, IV Push, DAILY, First dose (after last reorder) on Wed10/09/20 at 0900, Until Discontinu ed, Routine [facility] enoxaparin (LOVENOX) injection 40 mg 2019-10 15:00: 00 Yes 40mg 40 mg, Subcutaneo us, DAILY, First dose on Wed10/09/20 at 0900, Until Discontinu ed, Routine [facility] codeine-gua ifenesin (ROBITUSSIN AC) 10-100 mg/5 mL solution 10 mL 2019-10 05:17: 40 Yes 10mL 10 mL, Oral, Q6HPRN, Starting Wed10/08/20 at 2317, Until Discontinu ed, Routine, Cough [facility] albuterol (VENTOLIN) inhaler 2 Puff 2019-10 05:17: 32 Yes 2{puff} 2 Puff, Inhalation , Q6HPRN, Starting Wed10/08/20 at 2317, Until Discontinu ed, Routine, Wheezing, Shortness of Breath, Bronchospa sm, Chest tightness< br>Is this order for a patient with suspected or confirmed COVID-19 infection? Yes [facility] ondansetron (ZOFRAN (PF)) injection 4 mg 2019-10 05:15: 58 Yes 4mg 4 mg, Slow IV Push, Q6HPRN, Starting Wed10/08/20 at 2315, Until Discontinu ed, Routine, Nausea and Vomiting (N/V) [facility] traMADoL (ULTRAM) tablet 50 mg 2019-10 05:15: 54 10-11 05:14 :54 No 50mg 50 mg, Oral, Q8HPRN, Starting Wed10/08/20 at 2315, Until Jessica 10/10/20 at 2314, Routine, Pain (scale 4-6) [facility] acetaminoph en (TYLENOL) tablet 650 mg 2019-10 05:15: 52 Yes 650mg 650 mg, Oral, Q6HPRN, Starting Wed10/08/20 at 2315, Until Discontinu ed, Routine, Pain (scale 1-3) [facility] dexamethaso ne (DECADRON PHOSPHATE) injection 10 mg 2019-10 04:45: 00 10-09 03:49 :00 No 10mg 10 mg, IV Push, ONCE, 1 dose, Wed10/08/20 at 2245, STAT [facility] azithromyci n (ZITHROMAX) 500 mg in NaCl 0.9% (NS) 250 mL VIAL-MATE IV piggyback 2019-10 04:45: 00 10-09 04:49 :00 No 500mg 500 mg, IV Piggyback, ONCE, 1 dose, Wed10/08/20 at 2245, 250 mL
Reas on for Anti-Infec tive: Documented Infection< br>Documen megan Infection Site: Respirator y
Durat ion of Therapy: 7 days [facility] acetaminoph en (TYLENOL) tablet 1,000 mg 2019-10 01:45: 00 10-09 01:14 :00 No 1000mg 1,000 mg, Oral, ONCE, 1 dose, Wed10/08/20 at 1945, Routine [facility] ibuprofen (IBU) tablet 800 mg 2019-10 01:45: 00 10-09 01:14 :00 No 800mg 800 mg, Oral, ONCE, 1 dose, Wed10/08/20 at 1945, GASPER [facility] diclofenac 75 mg EC tablet 6-15 00:00: 00 03-11 00:00 :00 No [id number] 75mg Take 1 tablet by mouth 2 (two) times daily with meals. [facility] diclofenac 75 mg EC tablet 5-22 00:00: 00 Yes [id number] [id number] 75mg Take 1 tablet by mouth 2 (two) times daily with meals. [facility] diclofenac 75 mg EC tablet 3-19 00:00: 00 03-01 00:00 :00 No [id number] 75mg Take 1 tablet by mouth 2 (two) times daily with meals. [facility] LISINOPRIL ORAL 06-09 14:13: 17 Yes Take by mouth. [facility] acetaminoph en-codeine (TYLENOL-CO DEINE #3) 300-30 mg tablet 06-09 14:13: 17 Yes 1{tbl} Take 1 tablet by mouth every 4 (four) hours as needed. [facility] methylPREDN ISolone (MEDROL, LANEY,) 4 mg tablets 06-09 00:00: 00 Yes [id number] Take by mouth SEE-INSTRU CTIONS. follow package directions [facility] Lisinopril- hydroCHLORO thiazide 10-12.5 MG Lisinopril- hydroCHLORO thiazide 10-12.5 MG No 1{table t} QD Lisinopril -hydroCHLO ROthiazide 10-12.5 MG Vital Signs Vital Name Observation Time Observation Value Comments S ource height 2024-06-09 09:30:00 58.75 [in_i] Com [facility] weight 2024-06-09 09:30:00 242 [lb_av] Comm on [facility] temperature 2024-06-09 09:30:00 97.6 [degF] Com [facility] bmi 2024-06-09 09:30:00 49.29 kg/m2 Comm on [facility] oximetry 2024-06-09 09:30:00 88 % Commo n [facility] blood pressure systolic 2024-06-09 09:30:00 126 mm[Hg] Common [facility] blood pressure diastolic 2024-06-09 09:30:00 80 mm[Hg] Common [facility] height 2023-11-25 09:50:00 58.75 [in_i] Com [facility] weight 2023-11-25 09:50:00 234.6 [lb_av] Co mmon [facility] temperature 2023-11-25 09:50:00 97.7 [degF] Com [facility] bmi 2023-11-25 09:50:00 47.78 kg/m2 Comm on [facility] oximetry 2023-11-25 09:50:00 98 % Commo n [facility] blood pressure systolic 2023-11-25 09:50:00 126 mm[Hg] Common [facility] blood pressure diastolic 2023-11-25 09:50:00 72 mm[Hg] Common [facility] height 2023-11-25 09:50:00 58.75 [in_i] Com [facility] weight 2023-11-25 09:50:00 234.6 [lb_av] Co mmon [facility] temperature 2023-11-25 09:50:00 97.7 [degF] Com [facility] bmi 2023-11-25 09:50:00 47.78 kg/m2 Comm on [facility] oximetry 2023-11-25 09:50:00 98 % Commo n [facility] blood pressure systolic 2023-11-25 09:50:00 126 mm[Hg] Common [facility] blood pressure diastolic 2023-11-25 09:50:00 72 mm[Hg] Common [facility] height 2023-04-28 14:10:00 58.75 [in_i] Com [facility] weight 2023-04-28 14:10:00 231 [lb_av] Comm on [facility] temperature 2023-04-28 14:10:00 97.4 [degF] Com [facility] bmi 2023-04-28 14:10:00 47.05 kg/m2 Comm on [facility] oximetry 2023-04-28 14:10:00 99 % Commo n [facility] respiratory rate 2023-04-28 14:10:00 16 /min Common [facility] blood pressure systolic 2023-04-28 14:10:00 138 mm[Hg] [facility] blood pressure diastolic 2023-04-28 14:10:00 72 mm[Hg] [facility] Systolic blood pressure 2023-03-27 20:01:00 121 mm[Hg] [facility] Diastolic blood pressure 2023-03-27 20:01:00 82 mm[Hg] [facility] Heart rate 2023-03-27 20:01:00 76 /min [facility] Body temperature 2023-03-27 20:01:00 37.28 Lennie [facility] Respiratory rate 2023-03-27 20:01:00 16 /min [facility] Body height 2023-03-27 20:01:00 144.8 cm [facility] Body weight 2023-03-27 20:01:00 105.688 kg [facility] BMI 2023-03-27 20:01:00 50.42 kg/m2 [facility] Oxygen saturation in Arterial blood by Pulse oximetry 2023-03-27 20:01:00 100 /min [facility] height 2022-11-18 11:10:00 58.75 [in_i] Com mon [facility] weight 2022-11-18 11:10:00 237.0 [lb_av] Co mmon [facility] temperature 2022-11-18 11:10:00 97.3 [degF] Com mon [facility] bmi 2022-11-18 11:10:00 48.27 kg/m2 Comm on [facility] oximetry 2022-11-18 11:10:00 99 % Commo n [facility] respiratory rate 2022-11-18 11:10:00 18 /min [facility] blood pressure systolic 2022-11-18 11:10:00 124 mm[Hg] [facility] blood pressure diastolic 2022-11-18 11:10:00 72 mm[Hg] Common [facility] height 2022-07-22 11:10:00 58.75 [in_i] Com [facility] weight 2022-07-22 11:10:00 237.4 [lb_av] Co mmon [facility] temperature 2022-07-22 11:10:00 97.3 [degF] Com [facility] bmi 2022-07-22 11:10:00 48.35 kg/m2 Comm on [facility] oximetry 2022-07-22 11:10:00 100 % Commo n [facility] respiratory rate 2022-07-22 11:10:00 18 /min [facility] blood pressure systolic 2022-07-22 11:10:00 118 mm[Hg] [facility] blood pressure diastolic 2022-07-22 11:10:00 73 mm[Hg] [facility] blood pressure systolic 2022-06-23 11:10:00 127 mm[Hg] [facility] blood pressure diastolic 2022-06-23 11:10:00 71 mm[Hg] [facility] height 2022-06-23 11:10:00 58.75 [in_i] Com [facility] weight 2022-06-23 11:10:00 233.1 [lb_av] Co mmon [facility] temperature 2022-06-23 11:10:00 98.0 [degF] Com [facility] bmi 2022-06-23 11:10:00 47.48 kg/m2 Comm on [facility] respiratory rate 2022-06-23 11:10:00 17 /min [facility] Systolic blood pressure 2022-03-11 21:49:44 135 mm[Hg] [facility] Diastolic blood pressure 2022-03-11 21:49:44 83 mm[Hg] [facility] Heart rate 2022-03-11 21:49:44 72 /min [facility] Respiratory rate 2022-03-11 21:49:44 16 /min [facility] Oxygen saturation in Arterial blood by Pulse oximetry 2022-03-11 21:49:44 99 /min [facility] Body temperature 2022-03-11 17:59:00 36.17 Lennie [facility] Body height 2022-03-11 17:59:00 147.3 cm [facility] Body weight 2022-03-11 17:59:00 107 kg [facility] BMI 2022-03-11 17:59:00 49.30 kg/m2 [facility] height 2021-11-20 08:40:00 58.75 [in_i] Com [facility] weight 2021-11-20 08:40:00 232.5 [lb_av] Co mmon [facility] temperature 2021-11-20 08:40:00 98.1 [degF] Com [facility] bmi 2021-11-20 08:40:00 47.35 kg/m2 Comm on [facility] oximetry 2021-11-20 08:40:00 100 % Commo n [facility] respiratory rate 2021-11-20 08:40:00 18 /min Common [facility] blood pressure systolic 2021-11-20 08:40:00 132 mm[Hg] Common [facility] blood pressure diastolic 2021-11-20 08:40:00 68 mm[Hg] Common [facility] height 2021-08-05 11:10:00 58.75 [in_i] Com [facility] weight 2021-08-05 11:10:00 235 [lb_av] Comm on [facility] temperature 2021-08-05 11:10:00 97.7 [degF] Com [facility] bmi 2021-08-05 11:10:00 47.86 kg/m2 Comm on [facility] respiratory rate 2021-08-05 11:10:00 18 /min Common [facility] blood pressure systolic 2021-08-05 11:10:00 137 mm[Hg] Common [facility] blood pressure diastolic 2021-08-05 11:10:00 81 mm[Hg] [facility] Heart rate 2020-10-10 14:30:00 60 /min [facility] Respiratory rate 2020-10-10 14:30:00 27 /min [facility] Oxygen saturation in Arterial blood by Pulse oximetry 2020-10-10 14:30:00 90 /min [facility] Systolic blood pressure 2020-10-10 14:15:00 117 mm[Hg] [facility] Diastolic blood pressure 2020-10-10 14:15:00 57 mm[Hg] [facility] Body temperature 2020-10-10 14:15:00 37.11 Lennie [facility] Body weight 2020-10-10 11:00:00 95.709 kg [facility] BMI 2020-10-10 11:00:00 45.66 kg/m2 [facility] Body height 2020-10-09 05:11:00 144.8 cm [facility] Systolic blood pressure 2019-12-28 15:25:00 115 mm[Hg] [facility] Diastolic blood pressure 2019-12-28 15:25:00 77 mm[Hg] [facility] Body height 2019-12-28 15:25:00 144.8 cm [facility] Body weight 2019-12-28 15:25:00 93.441 kg [facility] BMI 2019-12-28 15:25:00 44.58 kg/m2 [facility] Systolic blood pressure 2019-12-08 14:49:00 115 mm[Hg] [facility] Diastolic blood pressure 2019-12-08 14:49:00 77 mm[Hg] [facility] Heart rate 2019-12-08 14:49:00 71 /min [facility] Respiratory rate 2019-12-08 14:49:00 18 /min [facility] Body height 2019-12-08 14:49:00 144.8 cm [facility] Body weight 2019-12-08 14:49:00 93.441 kg [facility] BMI 2019-12-08 14:49:00 44.58 kg/m2 [facility] Diastolic blood pressure 2019-06-09 14:11:00 87 mm[Hg] [place] [facility] Heart rate 2019-06-09 14:11:00 75 /min [facility] Respiratory rate 2019-06-09 14:11:00 18 /min [facility] Body height 2019-06-09 14:11:00 144.8 cm [facility] Body weight 2019-06-09 14:11:00 93.441 kg [facility] BMI 2019-06-09 14:11:00 44.58 kg/m2 [facility] Systolic blood pressure 2019-06-09 14:11:00 120 mm[Hg] [place] [facility] Procedures Procedure Date / Time Performed Performing Clinician Source XR FOOT 3+ VW RIGHT 2023-03-27 20:45:35 Ray Boykin [facility] CONSENT/REFUSAL FOR DIAGNOSIS AND TREATMENT 2023-03-27 20:00:11 Doctor Unassigned, [place] [facility] DUPLEX VENOUS LEG RIGHT - BY VASCULAR LAB 2022-03-11 20:25:00 Gianni Oreilly [facility] XR KNEE <3 VW RIGHT 2022-03-11 20:05:37 Gianni Oreilly [facility] CONSENT/REFUSAL FOR DIAGNOSIS AND TREATMENT 2022-03-11 17:56:26 Doctor Unassigned, [place] [facility] NOTICE OF PRIVACY PRACTICES 2022-03-11 17:52:58 Doctor Unassigned, [place] [facility] TROPONIN I 2020-10-10 10:26:00 Luke [facility] COMP. METABOLIC PANEL ([id number]) 2020-10-10 10:26:00 Edionwe, [facility] CBC WITH DIFF 2020-10-10 10:26:00 Paul [facility] PNEUMOCOCCAL ANTIGEN 2020-10-09 14:29:00 Paul [facility] TROPONIN I 2020-10-09 09:35:00 Paul [facility] COMP. METABOLIC PANEL ([id number]) 2020-10-09 09:35:00 Paul [facility] CBC WITH DIFF 2020-10-09 09:35:00 Paul [facility] D-DIMER 2020-10-09 09:35:00 [facility] PROC[facility] 2020-10-09 09:35:00 Paul [facility] COVID-19 (MOLECULAR TESTING NUCLEIC ACID AMPLIFICATION) 2020-10-09 03:40:00 Ruben [facility] URINALYSIS 2020-10-09 02:07:00 Lexi Miranda [facility] XR CHEST 1 VW 2020-10-09 01:11:[address] [facility] ADC,CLC OR [facility] ONLY - INFLUENZA A & B DIRECT ANTIGEN 2020-10-09 01:08:00 [facility] RAPID TESTING) 2020-10-09 01:08:00 [facility] (NA, K, CL, CO2, GLUCOSE, BUN, CREATININE, CA) 2020-10-09 01:05:00 [facility] WITH [facility]FF 2020-10-09 01:05:[address] [facility] CONSENT/REFUSAL FOR DIAGNOSIS AND TREATMENT 2020-10-08 23:49:16 Doctor Unassigned, [place] [facility] NOTICE OF PRIVACY PRACTICES 2020-10-08 23:48:59 Doctor Unassigned, [place] [facility] EXTERNAL PROVIDER RECORDS 2019-12-22 05:01:00 Doctor Unassigned, [place] [facility] REFERRAL- REQUEST/RESPONSE 2019-12-08 06:01:00 Doctor Unassigned, [place] [facility] Encounters Start Date/Time End Date/Time Encounter Type Admission Type Attending [facility] Care Facility Care Department Encounter ID Source 2024-09-13 13:08:00 [facility] [id number] [facility] 2024-05-19 14:48:00 Out[facility] [id number] [facility] 2023-04-28 14:01:00 Outpatient [facility] [id number] [facility] 2023-04-27 11:55:00 Outpatient [facility] [id number] [facility] 2022-06-18 15:13:00 Outpatient [facility] [id number] [facility] 2021-11-20 08:49:00 Outpatient [facility] [id number] [facility] 2021-11-19 11:12:02 Outpatient [facility] [id number] [facility] 2021-11-12 11:37:00 Outpatient Bah, Mary [facility] [id number] [facility] 2021-11-05 13:09:07 Outpatient Bah, Mary [facility] [id number] [facility] 2021-11-05 13:08:55 Outpatient Bah, Mary [facility] [id number] [facility] 2021-11-05 12:43:11 Outpatient [facility] [id number] [facility] 2021-11-05 12:42:55 Outpatient [facility] [id number] [facility] 2021-11-05 12:42:09 Outpatient [facility] [id number] [facility] 2021-11-05 12:19:10 Outpatient [facility] [id number] [facility] 2021-11-05 12:08:11 Outpatient [facility] [id number] [facility] 2021-11-05 11:53:30 Outpatient Laurie Holland [facility] ST[facility] [id number] [facility] 2021-11-05 11:52:51 Outpatient Laurie Holland [facility] [id number] [facility] 2024-09-13 00:00:00 2024-09-13 00:00:00 (TEL) STLMLC ST[facility] [id number] [facility] 2024-06-09 00:00:00 2024-06-09 00:00:00 OFFICE VISIT ESTAB PT LEVEL 3 [facility] ST[facility] [id number] [facility] 2024-02-09 00:00:00 2024-02-09 00:00:00 (TEL) STLMLC STL[facility]C [id number] [facility] 2023-11-25 00:00:00 2023-11-25 00:00:00 OFFICE VISIT ESTAB PT LEVEL 3 [facility] ST[facility] [id number] [facility] 2023-11-08 00:00:00 2023-11-08 00:00:00 (TEL) STLMLC STL[facility]C [id number] [facility] 2023-04-28 00:00:00 2023-04-28 00:00:00 OFFICE VISIT ESTAB PT LEVEL 3 [facility] ST[facility] [id number] [facility] 2023-04-27 00:00:00 2023-04-27 00:00:00 (TEL) STLMLC STL[facility] [id number] [facility] 2023-04-14 00:00:00 2023-04-14 00:00:00 (TEL) STLMLC STL[facility]C [id number] [facility] 2023-03-27 15:06:00 2023-03-27 16:27:00 Emergency X ELIUDJAZMINANAYELIISAEL YUE [facility] ERT [id number] [facility] 2023-03-27 15:06:00 2023-03-27 16:27:00 [facility] [id number] [facility] 2023-03-22 00:00:00 2023-03-22 00:00:00 (TEL) STLMLC STL[facility]C [id number] [facility] 2022-11-18 00:00:00 2022-11-18 00:00:00 OFFICE VISIT ESTAB PT LEVEL 3 [facility] ST[facility] [id number] [facility] 2022-10-19 00:00:00 2022-10-19 00:00:00 (TEL) STLMLC STLMLC [id number] [facility] 2022-07-22 00:00:00 2022-07-22 00:00:00 OFFICE VISIT EST PT LEVEL 3 STLMLC STLMLC [id number] [facility] 2022-06-23 00:00:00 2022-06-23 00:00:00 OFFICE VISIT EST PT LEVEL 3 STLMLC STLMLC [id number] [facility] 2022-05-18 00:00:00 2022-05-18 00:00:00 (TEL) STLMLC STLMLC [id number] [facility] 2022-03-11 13:01:00 2022-03-11 17:13:00 Emergency X GIANNI OREILLY MINUBIA ERT [id number] [facility] 2022-03-11 13:01:00 2022-03-11 17:13:00 Emergency Gianni Oreilly [facility] 1.840.114 350.1.13.10 4.2.7.2.686 [id number] [facility] 2022-03-11 00:00:00 2022-03-11 00:00:00 Orders Only Doctor Unassigned, [place] [facility] 1.840.114 350.1.13.10 4.2.7.2.686 [id number] [id number] [facility] 2021-11-20 00:00:00 2021-11-20 00:00:00 OFFICE VISIT EST PT LEVEL 3 STLMLC STLMLC [id number] [facility] 2021-08-05 00:00:00 2021-08-05 00:00:00 (TEL) STLMLC STLMLC [id number] [facility] 2021-08-05 00:00:00 2021-08-05 00:00:00 OFFICE VISIT ESTAB PT LEVEL 2 STLMLC STLMLC [id number] [facility] 2021-05-13 00:00:00 2021-05-13 00:00:00 Outpatient STLMLC STLMLC [id number] [facility] 2020-12-31 00:00:00 2020-12-31 00:00:00 Outpatient STLMLC STLMLC [id number] [facility] 2020-10-28 00:00:00 2020-10-28 00:00:00 Outpatient STLMLC STLMLC [id number] [facility] 2020-10-16 00:00:00 2020-10-16 00:00:00 Outpatient STLMLC STLMLC [id number] [facility] 2020-10-14 00:00:00 2020-10-14 00:00:00 Transition of Care Elza Austin 1.840.114 350.1.13.10 4.2.7.2.686 [id number] [facility] 2020-10-08 18:06:00 2020-10-10 16:09:00 Hospital Encounter Lexi Miranda [facility] 1.284.114 350.1.13.10 4.2.7.2.686 [id number] [facility] 2020-10-08 18:06:00 2020-10-10 16:09:00 Inpatient X [facility] RODRIGUEZ [id number] [facility] 2020-10-08 00:00:00 2020-10-08 00:00:00 Orders Only Doctor Unassigned, [place] [facility] 1.284.114 350.1.13.10 4.2.7.2.686 [id number] [id number] [facility] 2020-07-19 00:00:00 2020-07-19 00:00:00 Outpatient STLMLC STLMLC [id number] [facility] 2020-03-01 00:00:00 2020-03-01 00:00:00 [facility] 1.284.114 350.1.13.10 4.2.7.2.686 [id number] [facility] 2020-02-29 00:00:00 2020-02-29 00:00:00 Refill [facility]x [facility] 1.284.114 350.1.13.10 4.2.7.2.686 [id number] [facility] 2020-01-09 11:00:00 2020-01-09 11:00:00 [facility] [id number] [facility] 2019-12-28 10:22:37 2019-12-28 10:37:41 Office Visit Alexx [facility] 1.284.114 350.1.13.10 4.2.7.2.686 [id number] [facility] 2019-12-28 10:30:00 2019-12-28 10:30:00 Outpatient R ALEXX SINGH [facility] [id number] [facility] 2019-12-28 00:00:00 2019-12-28 00:00:00 Letter (Out) Alexx Singh [facility] kayla Zamora 1.2.840.114 350.1.13.10 4.2.7.2.686 [id number] [facility] 2019-12-22 00:00:00 2019-12-22 00:00:00 Orders Only Doctor Unassigned, [place] [facility] 1.2.840.114 350.1.13.10 4.2.7.2.686 [id number] [id number] [facility] 2019-12-08 08:49:03 2019-12-08 09:16:12 Office Visit Alexx Singh [facility] [place] 1.2.840.114 350.1.13.10 4.2.7.2.686 [id number] [facility] 2019-12-08 08:45:00 2019-12-08 08:45:00 Outpatient R ALEXX SINGH [facility] [id number] [facility] 2019-12-08 00:00:00 2019-12-08 00:00:00 Telephone Alexx Singh [facility] [place] 1.2.840.114 350.1.13.10 4.2.7.2.686 [id number] [facility] 2019-12-08 00:00:00 2019-12-08 00:00:00 Orders Only Doctor Unassigned, [place] [facility] 1.2.840.114 350.1.13.10 4.2.7.2.686 [id number] [id number] [facility] 2019-12-06 10:40:00 2019-12-06 10:40:[address] [facility] [id number] [facility] 2019-08-10 10:14:00 2019-08-10 10:14:[address] [facility] [id number] [facility] 2019-06-14 09:00:00 2019-06-14 09:00:00 [facility] [facility] [address] [facility] [id number] [facility] 2019-06-09 08:55:19 2019-06-09 09:42:20 Office Visit Alexx Singh [facility] 1.2.840.114 350.1.13.10 4.2.7.2.686 [id number] [facility] 2019-06-09 00:00:00 2019-06-09 00:00:00 Telephone Nik Wilkins [facility] 1.2.840.114 350.1.13.10 4.2.7.2.686 [id number] [facility] 2018-12-13 09:00:00 2018-12-13 09:00:00 [facility] [facility] [address] [facility] [id number] [facility] 2018-07-11 08:30:00 2018-07-11 08:30:[address] [facility] [address] [id number] [facility] 2018-03-18 15:30:00 2018-03-18 15:30:[address] [facility] [address] [address] [facility] [id number] [facility] 2018-01-26 08:30:00 2018-01-26 08:30:[address] [facility] [address] [address] [facility] [id number] [facility] Results Test Description Test Time Test Comments Results Result Co mments Source CBC with [id number] 12:46:00* Test Item Value Reference Range Interpretation Comme nts WBC (test code = 6690-2) See_Comment [Automated messa ge] The system which generated this result transmitted reference range: 4.30 - 11.10 10*3/?L. The reference range was not used to interpret this result as normal/abnormal. RBC (test code = 789-8) See_Comment [Automated Chu Shua ge] The system which generated this result transmitted reference range: 3.93 - 5.25 10*6/?L. The reference range was not used to interpret this result as normal/abnormal. HGB (test code = 718-7) 12.1 g/dL 11.6-15 HCT (test code = 4544-3) 36.7 % 35.7-45.2 MCV (test code = 787-2) 82.5 fL 80.6-95.5 MCH (test code = 785-6) 27.2 pg 25.9-32.8 MCHC (test code = 786-4) 33.0 g/dL 31.6-35.1 RDW-SD (test code = 74602-6) 41.4 fL 39-49.9 RDW-CV (test code = 788-0) 13.7 % 12-15.5 PLT (test code = 777-3) See_Comment [Automated Chu Shua ge] The system which generated this result transmitted reference range: 166 - 358 10*3/?L. The reference range was not used to interpret this result as normal/abnormal. MPV (test code = 14312-6) 11.3 fL 9.5-12.9 NRBC/100 WBC (test code = 4837265347) See_Comment [Automated [employer] ssage] The system which generated this result transmitted reference range: 0.0 - 10.0 /100 WBCs. The reference range was not used to interpret this result as normal/abnormal. NRBC x10^3 (test code = 5572368582) <0.01 See_Comment [Automated messa ge] The system which generated this result transmitted reference range: 10*3/?L. The reference range was not used to interpret this result as normal/abnormal. GRAN MAT (NEUT) % (test code = 770-8) 67.3 % IMM GRAN % (test code = 9502324749) 0.80 % LYMPH % (test code = 736-9) 19.2 % MONO % (test code = 5905-5) 12.7 % EOS % (test code = 713-8) 0.0 % BASO % (test code = 706-2) 0.0 % GRAN MAT x10^3(ANC) (test code = 1260542955) 3.19 10*3/uL 1.88-7.09 IMM GRAN x10^3 (test code = 5363392349) 0.04 10*3/uL 0-0.06 LYMPH x10^3 (test code = 731-0) 0.91 10*3/uL 1.32-3.29 L MONO x10^3 (test code = 742-7) 0.60 10*3/uL 0.33-0.92 EOS x10^3 (test code = 711-2) <0.03 0.03-0.39 L BASO x10^3 (test code = 704-7) <0.03 0.01-0.07 Lab Interpretation (test code = 76054-5) Abnormal [facility] [id number] 11:48:00* Test Item Value Reference Range Interpretation Comme nts TROPONIN I (test code = 5872406872) <0.012 See_Comment [Automated message] The system which generated this result transmitted reference range: <=0.034 ng/mL. The reference range was not used to interpret this result as normal/abnormal. VALERIY (test code = VALERIY) Equal or Less than 0.034 ng/ml---Normal ?Note: Cardiac troponin begins to [...] patient's use of biotin. ? Lab Interpretation (test code = 96163-7) Normal [facility] (48178)2020-10-10 11:41:00* Test Item Value Reference Range Interpretation Comme nts NA (test code = 9715271058) 141 mmol/L 135-145 K (test code = 2241887798) 4.2 mmol/L 3.5-5 CL (test code = 0897775712) 106 mmol/L 98-108 CO2 TOTAL (test code = 7457351031) 26 mmol/L 23-31 AGAP (test code = 2565305532) 2-16 BUN (test code = 4563553537) 20 mg/dL 7-23 GLUCOSE (test code = 8750619527) 115 mg/dL 70-110 H CREATININE (test code = 2017650084) 1.10 mg/dL 0.5-1.04 H TOTAL BILI (test code = 9167293038) 0.7 mg/dL 0.1-1.1 CALCIUM (test code = 4736684615) 9.2 mg/dL 8.6-10.6 T PROTEIN (test code = 6209056518) 7.9 g/dL 6.3-8.2 ALBUMIN (test code = 9137773459) 4.0 g/dL 3.5-5 ALK PHOS (test code = 9696622532) 93 U/L 34-122 ALTv (test code = 1742-6) 17 U/L 5-35 AST(SGOT) (test code = 1355034610) 34 U/L 13-40 eGFR Calculation (Non-) (test code = 9857703008) mL/min/1.73m2 eGFR Calculation () (test code = 9784496495) mL/min/1.73m2 VALERIY (test code = VALERIY) Association of [...] or abnormalities in imaging tests). Lab Interpretation (test code = 63297-6) Abnormal [facility] System[facility]GION[facility]LLA URINARY ANTIGEN [id number] 23:36:00* Test Item Value Reference Range Interpretation Comme nts Legionella Urinary Antigen (test code = 6157503514) Negative Negative VALERIY (test code = VALERIY) Negative for [...] limit of the test. Lab Interpretation (test code = 87032-4) Normal [facility] System[facility]NEUM[facility]CCAL [id number] 23:36:00* Test Item Value Reference Range Interpretation Comme nts S. pneumoniae antigen (test code = 1577724929) Negative Negative Lab Interpretation (test cod e = 31868-2) Normal [facility] SystemPROCALCITONIN2020-12-30 16:59:00* Test Item Value Reference Range Interpretation Kamini wolfe Procalcitonin (test code = 0881321797) 0.04 ng/mL <0.07 VALERIY (test code = VALERIY) INTERPRETATION OF [...] lung abscess/empyema. For further information please refer to:[email or web address] Lab Interpretation (test code = 32774-3) Normal [facility] System[facility]ON[facility] COVID-19 [id number] 12:28:00* Test Item Value Reference Range Interpretation Comme nts SARS-CoV-2 NAAT (test code = 76513-2) Positive Not Detected A VALERIY (test code = VALERIY) [employer] Aptima SARS-CoV-2 Assay is a nucleic acid amplification test intended for the qualitative detection of RNA from SARS-CoV-2 from nasopharyngeal (PORT CRANE OPERATOR) specimens. ?It is used under Emergency Use [...] repeat testing if clinically indicated. Lab Interpretation (test code = 35838-7) Abnormal [facility] SystemTROP[facility]IN [id number] 11:41:00* Test Item Value Reference Range Interpretation Comme nts TROPONIN I (test code = 5473867153) <0.012 See_Comment [Automated message] The system which generated this result transmitted reference range: <=0.034 ng/mL. The reference range was not used to interpret this result as normal/abnormal. VALERIY (test code = VALERIY) Equal or Less than 0.034 ng/ml---Normal ?Note: Cardiac troponin begins to [...] patient's use of biotin. ? Lab Interpretation (test code = 28025-6) Normal [facility]. METABOLIC PANEL (83654)2020-10-09 11:32:00* Test Item Value Reference Range Interpretation Comme nts NA (test code = 5244132752) 139 mmol/L 135-145 K (test code = 0038902028) 4.7 mmol/L 3.5-5 CL (test code = 2331056826) 105 mmol/L 98-108 CO2 TOTAL (test code = 0214876474) 25 mmol/L 23-31 AGAP (test code = 0095141022) 2-16 BUN (test code = 9279998893) 18 mg/dL 7-23 GLUCOSE (test code = 3347245843) 156 mg/dL 70-110 H CREATININE (test code = 7024961651) 1.18 mg/dL 0.5-1.04 H TOTAL BILI (test code = 0061427553) 0.7 mg/dL 0.1-1.1 CALCIUM (test code = 1171818694) 8.8 mg/dL 8.6-10.6 T PROTEIN (test code = 6641904036) 7.6 g/dL 6.3-8.2 ALBUMIN (test code = 0987268658) 3.9 g/dL 3.5-5 ALK PHOS (test code = 7561854564) 96 U/L 34-122 ALTv (test code = 1742-6) 15 U/L 5-35 AST(SGOT) (test code = 6776714235) 36 U/L 13-40 eGFR Calculation (Non-) (test code = 0053067172) mL/min/1.73m2 eGFR Calculation () (test code = 6749589819) mL/min/1.73m2 VALERIY (test code = VALERIY) Association of [...] or abnormalities in imaging tests). Lab Interpretation (test code = 01299-9) Abnormal [facility] SystemD-[id number] 11:19:00* Test Item Value Reference Range Interpretation Comments D-DIMER (test code = 4066449070) See_Comment H [Automated message] The system which generated this result transmitted reference range: <0.41 ?g/mL (FEU). The reference range was not used to interpret this result as normal/abnormal. VALERIY (test code = VALERIY) This test may be used in conjunction with a clinical pretest [...] context, in forming a diagnosis. Lab Interpretation (test code = 40554-6) Abnormal [facility] with Apnixtxlswxu7888-31-14 10:38:00* Test Item Value Reference Range Interpretation Comme nts WBC (test code = 6690-2) See_Comment [GeaCom] The system which generated this result transmitted reference range: 4.30 - 11.10 10*3/?L. The reference range was not used to interpret this result as normal/abnormal. RBC (test code = 789-8) See_Comment [GeaCom] The system which generated this result transmitted reference range: 3.93 - 5.25 10*6/?L. The reference range was not used to interpret this result as normal/abnormal. HGB (test code = 718-7) 11.2 g/dL 11.6-15 L HCT (test code = 4544-3) 33.0 % 35.7-45.2 L MCV (test code = 787-2) 82.1 fL 80.6-95.5 MCH (test code = 785-6) 27.9 pg 25.9-32.8 MCHC (test code = 786-4) 33.9 g/dL 31.6-35.1 RDW-SD (test code = 63475-8) 41.6 fL 39-49.9 RDW-CV (test code = 788-0) 13.9 % 12-15.5 PLT (test code = 777-3) See_Comment [Automated messa ge] The system which generated this result transmitted reference range: 166 - 358 10*3/?L. The reference range was not used to interpret this result as normal/abnormal. MPV (test code = 62659-9) 11.6 fL 9.5-12.9 NRBC/100 WBC (test code = 9100307046) See_Comment [Automated [employer] ssage] The system which generated this result transmitted reference range: 0.0 - 10.0 /100 WBCs. The reference range was not used to interpret this result as normal/abnormal. NRBC x10^3 (test code = 1830917854) <0.01 See_Comment [Automated messa ge] The system which generated this result transmitted reference range: 10*3/?L. The reference range was not used to interpret this result as normal/abnormal. GRAN MAT (NEUT) % (test code = 770-8) 87.1 % IMM GRAN % (test code = 1229190168) 0.60 % LYMPH % (test code = 736-9) 9.8 % MONO % (test code = 5905-5) 2.5 % EOS % (test code = 713-8) 0.0 % BASO % (test code = 706-2) 0.0 % GRAN MAT x10^3(ANC) (test code = 0331100872) 4.17 10*3/uL 1.88-7.09 IMM GRAN x10^3 (test code = 9768510731) 0.03 10*3/uL 0-0.06 LYMPH x10^3 (test code = 731-0) 0.47 10*3/uL 1.32-3.29 L MONO x10^3 (test code = 742-7) 0.12 10*3/uL 0.33-0.92 L EOS x10^3 (test code = 711-2) <0.03 0.03-0.39 L BASO x10^3 (test code = 704-7) <0.03 0.01-0.07 Lab Interpretation (test code = 10438-8) Abnormal [facility] SystemUrinalysis2020-12-30 02:44:00* Test Item Value Reference Range Interpretation Comme nts APPEARANCE (test code = 5137225667) Hazy Clear A COLOR (test code = 8282856437) Yellow Yellow PH (test code = 6959103752) 4.8-8.0 SP GRAVITY (test code = 2621532915) 1.003-1.030 GLU U QUAL (test code = 3598772433) Normal Normal BLOOD (test code = 3699729268) Negative Negative KETONES (test code = 2170309476) Negative Negative PROTEIN (test code = 2887-8) Negative Negative UROBILIN (test code = 6340373879) 4.0 mg/dL Normal A BILIRUBIN (test code = 7079949693) Negative Negative NITRITE (test code = 2391671519) Negative Negative LEUK LUC (test code = 9387568595) 25/uL Negative A RBC/HPF (test code = 8021696923) <1 See_Comment [Automated Chu Shua ge] The system which generated this result transmitted reference range: 0 - 3 HPF. The reference range was not used to interpret this result as normal/abnormal. WBC/HPF (test code = 1678120533) See_Comment [Automated Chu Shua ge] The system which generated this result transmitted reference range: 0 - 5 HPF. The reference range was not used to interpret this result as normal/abnormal. BACTERIA (test code = 0680720936) Few Negative A SQ EPITH (test code = 5553395546) HPF Lab Interpretation (test code = 50908-2) Abnormal [facility] System[facility],CLC OR LCC ONLY - INFLUENZA A & B DIRECT [id number] 02:00:00* Test Item Value Reference Range Interpretation Comme nts Influenza A (test code = 27754-1) Negative Negative Influenza B (test code = 44749-2) Negative Negative Lab Interpretation (test cod e = 37858-8) Normal [facility] SystemCOVID[facility] (ID NOW RAPID TESTING)2020-10-09 01:39:00* Test Item Value Reference Range Interpretation Comme nts SARS-CoV-2 Rapid ID NOW (test code = 25697-9) Not Detected Not Detected VALERIY (test code = VALERIY) ID NOW COVID-19 As say is an isothermal nucleic acid amplification test intended for the qualitative detection of nucleic acid from SARS-CoV-2 viral RNA in nasopharyngeal (PORT CRANE OPERATOR) specimens. It is used under Emergency Use [...] patient testing if clinically indicated. Lab Interpretation (test code = 20891-1) Normal [facility] Metabolic Panel (NA, K, CL, CO2, GLUCOSE, BUN, CREATININE, CA)2020-10-09 01:34:00* Test Item Value Reference Range Interpretation Comme nts NA (test code = 3456425416) 137 mmol/L 135-145 K (test code = 2232383214) 4.3 mmol/L 3.5-5 CL (test code = 5167281803) 103 mmol/L 98-108 CO2 TOTAL (test code = 1538558260) 25 mmol/L 23-31 AGAP (test code = 1193616103) 2-16 BUN (test code = 6314489015) 17 mg/dL 7-23 GLUCOSE (test code = 2538066997) 107 mg/dL 70-110 CREATININE (test code = 7819783342) 1.10 mg/dL 0.5-1.04 H CALCIUM (test code = 9389647607) 8.6 mg/dL 8.6-10.6 eGFR Calculation (Non-) (test code = 8514311451) mL/min/1.73m2 eGFR Calculation () (test code = 7078302354) mL/min/1.73m2 VALERIY (test code = VALERIY) Association of [...] or abnormalities in imaging tests). Lab Interpretation (test code = 53013-9) Abnormal [facility] 1 Clxe2780-71-85 01:29:28Impression: Bilateral lung opacities compatible with known Covid 19pneumonia.Exam: XR CHEST 1 10/08/2020 6:51 PM Clinical History: COVID Comparison: None Technique: frontal view of the chest Findings: Bilateral ill-defined patchy airspace and streaky opacities suggestive ofatypical pneumonia including Covid 19.No pleural effusion. ?No pneumothorax. The cardiac size is within normal limits. No acute osseous abnormality. [facility], Radiant Results Inft User - 10/08/2020 7:30 PM CSTExam: XR CHEST 1 10/08/2020 6:51 PMClinical History: COVID Comparison: NoneTechnique: frontal view of the chestFindings:Bilateral ill-defined patchy airspace and streaky opacities suggestive ofatypical pneumonia including Covid 19.No pleural effusion. No pneumothorax. The cardiac size is within normal limits. No acute osseous abnormality.IMPRESSIONImpression: Bilateral lung opacities compatible with known Mjdwx11ybwnonizb.[facility] with Asozvvnrayyn7107-62-84 01:16:00* Test Item Value Reference Range Interpretation Comme nts WBC (test code = 6690-2) See_Comment [Automated messa ge] The system which generated this result transmitted reference range: 4.30 - 11.10 10*3/?L. The reference range was not used to interpret this result as normal/abnormal. RBC (test code = 789-8) See_Comment [Automated Chu Shua ge] The system which generated this result transmitted reference range: 3.93 - 5.25 10*6/?L. The reference range was not used to interpret this result as normal/abnormal. HGB (test code = 718-7) 12.0 g/dL 11.6-15 HCT (test code = 4544-3) 36.2 % 35.7-45.2 MCV (test code = 787-2) 83.0 fL 80.6-95.5 MCH (test code = 785-6) 27.5 pg 25.9-32.8 MCHC (test code = 786-4) 33.1 g/dL 31.6-35.1 RDW-SD (test code = 68752-3) 42.1 fL 39-49.9 RDW-CV (test code = 788-0) 13.9 % 12-15.5 PLT (test code = 777-3) See_Comment [Automated Chu Shua ge] The system which generated this result transmitted reference range: 166 - 358 10*3/?L. The reference range was not used to interpret this result as normal/abnormal. MPV (test code = 31683-5) 11.3 fL 9.5-12.9 NRBC/100 WBC (test code = 1774772210) See_Comment [Automated [employer] ssage] The system which generated this result transmitted reference range: 0.0 - 10.0 /100 WBCs. The reference range was not used to interpret this result as normal/abnormal. NRBC x10^3 (test code = 4867039274) <0.01 See_Comment [Automated Chu Shua ge] The system which generated this result transmitted reference range: 10*3/?L. The reference range was not used to interpret this result as normal/abnormal. GRAN MAT (NEUT) % (test code = 770-8) 70.3 % IMM GRAN % (test code = 8466454166) 0.70 % LYMPH % (test code = 736-9) 16.1 % MONO % (test code = 5905-5) 11.8 % EOS % (test code = 713-8) 0.9 % BASO % (test code = 706-2) 0.2 % GRAN MAT x10^3(ANC) (test code = 8881754957) 3.93 10*3/uL 1.88-7.09 IMM GRAN x10^3 (test code = 0427185921) 0.04 10*3/uL 0-0.06 LYMPH x10^3 (test code = 731-0) 0.90 10*3/uL 1.32-3.29 L MONO x10^3 (test code = 742-7) 0.66 10*3/uL 0.33-0.92 EOS x10^3 (test code = 711-2) 0.05 10*3/uL 0.03-0.39 BASO x10^3 (test code = 704-7) <0.03 0.01-0.07 Lab Interpretation (test code = 57306-6) Abnormal [facility]
[2024-10-30] MEDS ORDERED: IBUPROFEN 400 MG TAB ONE (14:40)
[2024-10-30] MEDS ORDERED: HYDROCODONE/APAP 7.5/325 MG TAB ONE (14:40)
--- NOTE | 2024-10-30 14:52 | RAD REPORT ---
EXAM: Knee Left 3 View INDICATION: PAIN COMPARISON: None FINDINGS: No acute fracture. No significant knee effusion. Mild to moderate medial compartment narrowing. Mild to moderate patellofemoral compartment spurring. Other: n/a IMPRESSION: No evidence of acute osseous abnormality involving the imaged knee.
--- NOTE | 2024-10-30 15:27 | ER ---
Nurse's Notes [facility] Name: Susana Lane Age: 59 yrs Sex: Female : 1965 Arrival Date: 10/30/2024 Time: 13:28 Bed 9 Private MD: Diagnosis: Pain in left knee Presentation: 10/30 14:06 Chief complaint: Patient states: Left knee pain onset this morning. Pt states that she cm10 was walking and her knee popped and felt it give out. pt did not fall. Coronavirus screen: Client denies travel out of the [place] in the last 14 days. Ebola Screen: Patient denies travel to an Ebola-affected area in the 21 days before illness onset. Initial Sepsis Screen: Does the patient meet any 2 criteria? No. Patient's initial sepsis screen is negative. Does the patient have a suspected source of infection? No. Patient's initial sepsis screen is negative. Risk Assessment: Do you want to hurt yourself or someone else? Patient reports no desire to harm self or others. Onset of symptoms was October 30, 2024. 14:06 Method Of Arrival: Wheelchair cm10 14:06 Acuity: JAKOB 4 cm10 Triage Assessment: 14:08 General: Appears in no apparent distress. uncomfortable, Behavior is calm, cooperative. cm10 Pain: Complains of pain in left knee Pain currently is 10 out of 10 on a pain scale. Aggravated by weight bearing. Neuro: No deficits noted. Level of Consciousness is awake, alert, obeys commands, Oriented to person, place, time, situation, Appropriate for age. Respiratory: No deficits noted. Airway is patent Respiratory effort is even, unlabored, Respiratory pattern is regular, symmetrical. Historical: - Allergies: 14:07 No Known Allergies; cm10 - Home Meds: 14:07 lisinopril Oral [Active]; cm10 - PMHx: 14:07 Hypertension; cm10 - PSHx: 14:07 None; cm10 - Immunization history:: Adult Immunizations up to date. - Infectious Disease History:: Denies. - Social history:: Smoking status: Patient denies any tobacco usage or history of. Screenin:57 [facility] ED Fall Risk Assessment (Adult) History of falling in the last 3 months, ld1 including since admission No falls in past 3 months (0 pts) Confusion or Disorientation No (0 pts) Intoxicated or Sedated No (0 pts) Impaired Gait No (0 pts) Mobility Assist Device Used No (0 pt) Altered Elimination No (0 pt) Score/Fall Risk Level 0 - 2 = Low Risk Oriented to surroundings, Maintained a safe environment, Educated pt \T\ family on fall prevention, incl call for assistance when getting out of bed, Assessed \T\ reinforced patient's understanding of fall precautions, Provided non-skid footwear, Hourly rounding (assess needs \T\ fall precautionary measures) done, Used ambulatory aids as needed (educated on \T\ assisted with), Used gait belt as appropriate. Abuse screen: Denies threats or abuse. Denies injuries from another. Nutritional screening: No deficits noted. Tuberculosis screening: No symptoms or risk factors identified. Assessment: 14:49 General: Appears in no apparent distress. comfortable, Behavior is calm, cooperative. ss Pain: Complains of pain in left knee Pain currently is 10 out of 10 on a pain scale. Quality of pain is described as tender, Is continuous. Neuro: Level of Consciousness is awake, alert, obeys commands, Oriented to person, place, time, situation. Respiratory: Airway is patent Respiratory effort is even, unlabored, Respiratory pattern is regular, symmetrical. Derm: Skin is intact, is healthy with good turgor, Skin is pink, warm \T\ dry. normal. Musculoskeletal: Swelling absent. 15:57 Reassessment: Patient appears in no apparent distress at this time. No changes from ld1 previously documented assessment. Patient and/or family updated on plan of care and expected duration. Pain level reassessed. Patient states symptoms have not improved. Vital Signs: 14:06 BP 153 / 67; Pulse 58; Resp 15; Temp 98.2(O); Pulse Ox 100% on R/A; Weight 104.33 kg; cm10 Height 4 ft. 9 in. ; Pain 10/10; 15:57 BP 146 / 82; Pulse 61; Resp 17; Pulse Ox 99% on R/A; ld1 14:06 Body Mass Index 49.77 (104.33 kg, 144.78 cm) cm10 14:06 Pain Scale: Adult cm10 ED Course: 13:32 Patient arrived in ED. im 13:33 Jesus Manuel Paz PA is PHCP. cp 13:33 Jay Rivero MD is Attending Physician. cp 14:07 Triage completed. cm10 14:08 Arm band placed on right wrist. Patient placed in an exam room, on a stretcher. cm10 14:46 XRAY Knee LEFT 3 view In Process Unspecified. EDMS 15:27 Misbah Centeno MD is Referral Physician. cp 15:46 Patrizia Morton, RN is Primary Nurse. ld1 15:58 Patient has correct armband on for positive identification. Placed in gown. Bed in low ld1 position. Call light in reach. Side rails up X2. Pulse ox on. NIBP on. Door closed. Noise minimized. Warm blanket given. 15:58 No provider procedures requiring assistance completed. Patient did not have IV access ld1 during this emergency room visit. Administered Medications: 14:47 Drug: Ibuprofen PO 800 mg PO once Route: PO; ss 14:48 Drug: Hydrocodone-Acetaminophen PO (7.5 mg-325 mg) 1 tabs PO once; RASS on ADMIN: ss Combtv4, Very Agttd3, Agttd2, Rstlss1, AlertClm0, Drwsy-1, Lt Sdtn-2, Mod Sdtn-3, Dp Sdtn-4, UnArsble-5 Route: PO; Medication: 14:49 VIS not applicable for this client. ss Outcome: 15:27 Discharge ordered by . cp 15:58 Discharged to home ambulatory, ld1 15:58 Condition: stable 15:58 Discharge instructions given to patient, Instructed on discharge instructions, follow up and referral plans. Demonstrated understanding of instructions, follow-up care, medications, Prescriptions given X 2, 15:58 Patient left the ED. ld1 Signatures: Dispatcher [employer] EDMS Henrietta Holloway RN RN ss Jesus Manuel Paz, MICHELLE PA cp Patrizia Morton, RN RN ld1 Carmella Lugo Clarissa, RN RN cm10
--- NOTE | 2024-10-30 15:27 | EDPHYS ---
Physician Documentation [facility] Name: Susana Lane Age: 59 yrs Sex: Female : 1965 Arrival Date: 10/30/2024 Time: 13:28 Bed 9 Private MD: ED Physician Jay Rivero HPI: 10/30 14:20 This 59 yrs old Black Female presents to ER via Wheelchair with complaints of Knee Pain cp - left. 14:20 The patient presents with pain, that is acute. The complaints affect the left knee. cp Context: while walking to car in garage this morning, felt a "pop" in left knee causing knee to give out. Denies falling. C/o of sudden pain in patella area of knee. Onset: The symptoms/episode began/occurred this morning. Associated signs and symptoms: The patient has no apparent associated signs or symptoms. Historical: - Allergies: 14:07 No Known Allergies; cm10 - Home Meds: 14:07 lisinopril Oral [Active]; cm10 - PMHx: 14:07 Hypertension; cm10 - PSHx: 14:07 None; cm10 - Immunization history:: Adult Immunizations up to date. - Infectious Disease History:: Denies. - Social history:: Smoking status: Patient denies any tobacco usage or history of. ROS: 14:25 MS/extremity: Positive for pain, tenderness, of the left knee, Negative for decreased cp range of motion, deformity, 14:25 Eyes: Negative for injury, pain, redness, and discharge, cp 14:25 Constitutional: Negative for body aches, chills, fever, 14:25 ENT: Negative for drainage from ear(s), ear pain, sore throat, difficulty swallowing, difficulty handling secretions, 14:25 Neck: Negative for pain with movement, pain at rest, 14:25 Respiratory: Negative for cough, shortness of breath, wheezing, 14:25 Abdomen/GI: Negative for abdominal pain, 14:25 Back: Negative for pain at rest, pain with movement, 14:25 Neuro: Negative for altered mental status, dizziness, headache, weakness, 14:25 All other systems are negative, Exam: 14:30 Constitutional: The patient appears in no acute distress, alert, awake, cp non-diaphoretic, non-toxic, well developed, well nourished, obese, uncomfortable, 14:30 Head/Face: Normocephalic, atraumatic. cp 14:30 Neck: ROM/movement: is normal, is supple, without pain, no range of motions cp limitations, 14:30 Chest/axilla: Inspection: normal, cp 14:30 Cardiovascular: Rate: bradycardic, Rhythm: regular, Edema: is not appreciated, JVD: is not appreciated, 14:30 Respiratory: the patient does not display signs of respiratory distress, Respirations: normal, no use of accessory muscles, no retractions, labored breathing, is not present, 14:30 Abdomen/GI: Exam negative for discomfort, distension, guarding, Inspection: abdomen appears normal, 14:30 Back: pain, is absent, ROM is normal, 14:30 Musculoskeletal/extremity: Extremities: noted in the left knee: pain, tenderness anterior left knee. pain with passive ROM. no joint line tenderness, no popliteal tenderness, Perfusion: the extremity is normally perfused throughout, the left leg Sensation intact. Vital Signs: 14:06 BP 153 / 67; Pulse 58; Resp 15; Temp 98.2(O); Pulse Ox 100% on R/A; Weight 104.33 kg; cm10 Height 4 ft. 9 in. ; Pain 10/10; 15:57 BP 146 / 82; Pulse 61; Resp 17; Pulse Ox 99% on R/A; ld1 14:06 Body Mass Index 49.77 (104.33 kg, 144.78 cm) cm10 14:06 Pain Scale: Adult cm10 MDM: 14:10 Medical Screening Exam initiated cp 14:45 Differential diagnosis: closed fracture, contusion, tendonitis, sprain. cp 15:27 Data reviewed: vital signs, nurses notes, radiologic studies, plain films, and as a cp result, I will discharge patient. 15:27 I considered the following discharge prescriptions or medication management in the emergency department Medications were administered in the Emergency Department. See MAR. Independent interpretation of the following test(s) in the Emergency Department X-Ray: My interpretation is images of left knee negative for fracture. Care significantly affected by the following chronic conditions: Hypertension, Obesity. Counseling: I had a detailed discussion with the patient and/or guardian regarding the historical points, exam findings, and any diagnostic results supporting the discharge/admit diagnosis, radiology results, to return to the emergency department if symptoms worsen or persist or if there are any questions or concerns that arise at home. Response to treatment: the patient's symptoms have mildly improved after treatment, and as a result, I will discharge patient. 10/30 14:19 Order name: XRAY Knee LEFT 3 view; Complete Time: 15:10 cp 10/30 15:11 Interpretation: Report reviewed. cp 10/30 15:26 Order name: Ab wrap-joint; Complete Time: 15:46 cp 10/30 15:26 Order name: Crutches; Complete Time: 15:46 cp Administered Medications: 14:47 Drug: Ibuprofen PO 800 mg PO once Route: PO; ss 14:48 Drug: Hydrocodone-Acetaminophen PO (7.5 mg-325 mg) 1 tabs PO once; RASS on ADMIN: ss Combtv4, Very Agttd3, Agttd2, Rstlss1, AlertClm0, Drwsy-1, Lt Sdtn-2, Mod Sdtn-3, Dp Sdtn-4, UnArsble-5 Route: PO; Disposition: 16:06 Co-signature as Attending Physician, Jay Rivero MD I reviewed the patient's care rn provided by the Advanced Practice Provider and agree with the diagnosis and treatment plan. Disposition Summary: 10/30/24 15:27 Discharge Ordered Notes: Location: Home cp Problem: new cp Symptoms: have improved cp Condition: Stable cp Diagnosis - Pain in left knee cp Followup: cp - With: Misbah Centeno MD - When: 5 - 6 days - Reason: pain continues Discharge Instructions: - Discharge Summary Sheet cp - How to Use a Knee Brace cp - Acute Knee Pain, Adult cp Forms: - Medication Reconciliation Form cp - Antibiotic Education cp - Prescription Opioid Use cp - Patient Portal Instructions cp - Leadership Thank You Letter cp Prescriptions: - diclofenac sodium 3 % Topical gel - apply 1 application TOPICAL route 2 times per day for 8-10 days; 45 gram tube; cp Refills: 0, Product Selection Permitted - Naprosyn 500 mg Oral tablet - take 1 tablet ORAL route 2 times per day take with food; 20 tablet; Refills: 0, cp Product Selection Permitted Signatures: Dispatcher [facility] Jay Ramirez MD MD rn Blanchard, Shelby, RN RN ss Page, Jesus Manuel, PA PA cp Madi, Carolyne, RN RN cm10 Corrections: (The following items were deleted from the chart) 14:20 14:20 Knee Left 3 View+RAD.RAD.BRZ ordered. EDMS EDMS
[2024-10-30 16:46] VITALS: TEMP 98.2
[2024-10-30 16:47] VITALS: BP 146/82; O2SAT 99
== END 2024-10-30 15:58 | disposition home or self-care (01) ==
LOC: ER 13:28
DX: M25.562 Pain in left knee (principal)
CPT/HCPCS: 99283

== ENCOUNTER 2025-02-27 12:08 | Emergency (ER) | payer OTHER ==
--- OUTSIDE RECORDS SUMMARY | 2025-02-27 12:13 | XMS REPORT | Continuity of Care Document ---
Author Name Unknown Address [address] [facility] [place] [address] [facility] Address [address] [facility] [address] [place] [address] Care Team Providers Care Billing Representative Name Role Phone MARY BAH Primary Care Physician Unavailab Mary Guadarrama Attending Clinician Unavailable Laurie Holland Attending Clinician Unavailable YUE BOYKIN Attending Clinician Unavailab Yue Bishop MD Attending Clinician [phone] GIANNI OREILLY Attending Clinician Unavailable Gianni Oreilly NP Attending Clinician [phone] Doctor Unassigned, [place] Attending Clinician U Elza Acosta Attending Clinician [phone] Lexi Philip Attending Clinician [phone] Luke Miller MD Attending Clinician [phone] LUKE MILLER Attending Clinician Unavailable Alexx Singh MD Attending Clinician [phone] ALEXX SINGH Attending Clinician UnavailNik Solis Attending Clinician [phone] YUE BOYKIN Admitting Clinician UnavailGIANNI Howe Admitting Clinician Unavailable Luke Miller MD Admitting Clinician LUKE MILLER Admitting Clinician Unavailable Payers Payer Name Policy Type Policy Number Effective Date Expirati on Date Source COVID19 HRSA UNINSURED [id number] 2020 00:00:00 2020 00:00:00 Problems Condition Name Condition Details Condition Category Status Onset Date Resolution Date Last Treatment Date Treating Clinician Comments Source Pneumonia due to COVID-19 virus Pneumonia due to COVID-19 virus Disease Active 2019-10 00:00: 00 [facility] Atypical pneumonia Atypical pneumonia Disease Active 2019-10 00:00: 00 [facility] [id number] Abnormal laboratory test Problem [facility] [place] [id number] Prediabete s Problem [facility] Hypertensi on Hypertensi on Problem [facility] [place] [id number] Hyperglyce sherry Problem [facility] [place] [id number] Insomnia, unspecifie d type Problem [facility] [place] Allergic rhinitis Allergic rhinitis Problem [facility] [place] [id number] Hyperchole sterolemia Problem [facility] [place] [id number] Bereavemen t Problem [facility] [place] [id number] Chest tightness Problem [facility] [place] [id number] Acute pain of left shoulder Problem [facility] [place] [id number] Essential hypertensi on Problem [facility] [place] [id number] Morbid (severe) obesity due to excess calories Problem [facility] [place] [id number] Difficulty sleeping Problem [facility] [place] [id number] Elevated serum creatinine Problem [facility] [place] [id number] Morbid obesity Problem [facility] [place] [id number] Anxiety Problem [facility] [place] [id number] Left-sided thoracic back pain, unspecifie d chronicity Problem [facility] [place] [id number] Dietary counseling and surveillan ce Problem [facility] [place] [id number] Pain in left shoulder Problem [facility] [place] [id number] Bilateral carpal tunnel syndrome Problem [facility] [place] Allergies, Adverse Reactions, Alerts Allergy Name Allergy Type Status Severity Reaction(s) Onset Date Inactive Date Treating Clinician Comments Source NO KNOWN ALLERGIE S Drug Class Active [facility] Social History Social Habit Start Date Stop Date Quantity Comments Source History of Tobacco Use [facility] [place] Sex Assigned At [facility] Exposure to SARS-CoV-2 (event) 2022-03-01 00:00:00 2022-03-11 12:53:00 Not sure [facility] Tobacco use and exposure 2019-12-08 00:00:00 2019-12-08 00:00:00 Smokeless tobacco non-user [facility] Smoking Status Start Date Stop Date Source Unknown if ever smoked [facility] Never smoked tobacco [facility] Medications Ordered Medication Name Filled Medication Name Start Date Stop Date Current Medication? Ordering Clinician Indication Dosage Frequency Signature (SIG) Comments Components Source indomethaci n (INDOCIN) capsule 50 mg 03-27 20:16: 00 03-27 21:19 :00 No 50mg 50 mg, Oral, ONCE, 1 dose, On 03/27/23 at 1530, GASPER [facility] indomethaci n 25 mg capsule 03-27 00:00: 00 Yes [id number] 25mg Take 1 capsule by mouth 3 (three) times daily as needed for Pain or Inflammati on. [facility] methylPREDN ISolone 4 mg tablets 03-12 00:00: 00 Yes [id number] Take by mouth SEE-INSTRU CTIONS. follow package directions [facility] dexamethaso ne (DECADRON PHOSPHATE) injection 10 mg 03-11 21:00: 00 03-11 21:00 :00 No 10mg 10 mg, Intramuscu lar, ONCE, 1 dose, On Wed03/11/22 at 1600, Routine [facility] ketorolac (TORADOL) injection 30 mg 03-11 21:00: 00 03-11 21:43 :00 No 30mg 30 mg, Intramuscu lar, ONCE, 1 dose, On Wed03/11/22 at 1600, GASPER [facility] acetaminoph en-codeine (TYLENOL-CO DEINE #3) 300-30 mg tablet 03-11 16:17: 43 03-11 00:00 :00 No 1{tbl} Take 1 tablet by mouth every 4 (four) hours as needed. [facility] ketorolac 10 mg tablet 03-11 00:00: 00 Yes [id number] 10mg Take 1 tablet by mouth every 6 (six) hours as needed for Pain (scale 1-3) or Pain (scale 4-6). [facility] traMADoL 50 mg tablet 03-11 00:00: 00 03-19 04:59 :00 No [id number] 50mg Take 1 tablet by mouth every 6 (six) hours as needed for Pain (scale 4-6) or Pain (scale 7-10) for up to 7 days. Indication s: acute pain [facility] acetaminoph en-codeine (TYLENOL-CO DEINE #3) 300-30 mg tablet 2019-10 22:23: 28 Yes 1{tbl} Take 1 tablet by mouth every 4 (four) hours as needed. [facility] LISINOPRIL ORAL 2019-10 21:43: 00 10-10 00:00 :00 No 10mg Take 10 mg by mouth daily. [facility] acetaminoph en-codeine (TYLENOL-CO DEINE #3) 300-30 mg tablet 2019-10 16:23: 28 Yes 1{tbl} Take 1 tablet by mouth every 4 (four) hours as needed. [facility] methylPREDN ISolone 4 mg tablets 2019-10 00:00: 00 03-11 00:00 :00 No [id number] Take by mouth SEE-INSTRU CTIONS. follow package directions [facility] dexamethaso ne (DECADRON PHOSPHATE) injection 6 mg 2019-10 15:00: 00 Yes 6mg 6 mg, IV Push, DAILY, First dose (after last reorder) on Wed10/09/20 at 0900, Until Discontinu ed, Routine [facility] enoxaparin (LOVENOX) injection 40 mg 2019-10 15:00: 00 Yes 40mg 40 mg, Subcutaneo us, DAILY, First dose on Wed10/09/20 at 0900, Until Discontinu ed, Routine [facility] codeine-gua ifenesin (ROBITUSSIN AC) 10-100 mg/5 mL solution 10 mL 2019-10 05:17: 40 Yes 10mL 10 mL, Oral, Q6HPRN, Starting Wed10/08/20 at 2317, Until Discontinu ed, Routine, Cough [facility] albuterol (VENTOLIN) inhaler 2 Puff 2019-10 05:17: 32 Yes 2{puff} 2 Puff, Inhalation , Q6HPRN, Starting Wed10/08/20 at 2317, Until Discontinu ed, Routine, Wheezing, Shortness of Breath, Bronchospa sm, Chest tightness< br>Is this order for a patient with suspected or confirmed COVID-19 infection? Yes [facility] ondansetron (ZOFRAN (PF)) injection 4 mg 2019-10 05:15: 58 Yes 4mg 4 mg, Slow IV Push, Q6HPRN, Starting Wed10/08/20 at 2315, Until Discontinu ed, Routine, Nausea and Vomiting (N/V) [facility] traMADoL (ULTRAM) tablet 50 mg 2019-10 05:15: 54 10-11 05:14 :54 No 50mg 50 mg, Oral, Q8HPRN, Starting Wed10/08/20 at 2315, Until Jessica 10/10/20 at 2314, Routine, Pain (scale 4-6) [facility] acetaminoph en (TYLENOL) tablet 650 mg 2019-10 05:15: 52 Yes 650mg 650 mg, Oral, Q6HPRN, Starting Wed10/08/20 at 2315, Until Discontinu ed, Routine, Pain (scale 1-3) [facility] dexamethaso ne (DECADRON PHOSPHATE) injection 10 mg 2019-10 04:45: 00 10-09 03:49 :00 No 10mg 10 mg, IV Push, ONCE, 1 dose, Wed10/08/20 at 2245, STAT [facility] azithromyci n (ZITHROMAX) 500 mg in NaCl 0.9% (NS) 250 mL VIAL-MATE IV piggyback 2019-10 04:45: 00 10-09 04:49 :00 No 500mg 500 mg, IV Piggyback, ONCE, 1 dose, Wed10/08/20 at 2245, 250 mL
Reas on for Anti-Infec tive: Documented Infection< br>Documen megan Infection Site: Respirator y
Durat ion of Therapy: 7 days [facility] acetaminoph en (TYLENOL) tablet 1,000 mg 2019-10 01:45: 00 10-09 01:14 :00 No 1000mg 1,000 mg, Oral, ONCE, 1 dose, Wed10/08/20 at 1945, Routine [facility] ibuprofen (IBU) tablet 800 mg 2019-10 01:45: 00 10-09 01:14 :00 No 800mg 800 mg, Oral, ONCE, 1 dose, Wed10/08/20 at 1945, GASPER [facility] diclofenac 75 mg EC tablet 6-15 00:00: 00 03-11 00:00 :00 No [id number] 75mg Take 1 tablet by mouth 2 (two) times daily with meals. [facility] diclofenac 75 mg EC tablet -22 00:00: 00 Yes [id number] 75mg Take 1 tablet by mouth 2 (two) times daily with meals. [facility] diclofenac 75 mg EC tablet 3-19 00:00: 00 03-01 00:00 :00 No [id number] 75mg Take 1 tablet by mouth 2 (two) times daily with meals. [facility] LISINOPRIL ORAL 06-09 14:13: 17 Yes Take by mouth. [facility] acetaminoph en-codeine (TYLENOL-CO DEINE #3) 300-30 mg tablet 06-09 14:13: 17 Yes 1{tbl} Take 1 tablet by mouth every 4 (four) hours as needed. [facility] methylPREDN ISolone (MEDROL, LANEY,) 4 mg tablets 06-09 00:00: 00 Yes [id number] Take by mouth SEE-INSTRU CTIONS. follow package directions [facility] Lisinopril- hydroCHLORO thiazide 10-12.5 MG Lisinopril- hydroCHLORO thiazide 10-12.5 MG No 1{table t} QD Lisinopril -hydroCHLO ROthiazide 10-12.5 MG Naproxen 500 MG Naproxen 500 MG No Naproxen 500 MG Diclofenac Sodium 3 % Diclofenac Sodium 3 % No Diclofenac Sodium 3 % Immunizations Ordered Immunization Name Filled Immunization Name Date Status Comments Source Boostrix (Tdap) Boostrix (Tdap) Unknown Completed [facility] [place] Vital Signs Vital Name Observation Time Observation Value Comments S ource height 2024-12-08 09:30:00 58.75 [in_i] Com mon [facility] weight 2024-12-08 09:30:00 240.6 [lb_av] Co mmon [facility] temperature 2024-12-08 09:30:00 97 [degF] Comm on [facility] bmi 2024-12-08 09:30:00 49 kg/m2 [facility] respiratory rate 2024-12-08 09:30:00 17 /min [facility] [place] blood pressure systolic 2024-12-08 09:30:00 132 mm[Hg] [facility] blood pressure diastolic 2024-12-08 09:30:00 78 mm[Hg] Common [facility] height 2024-06-09 09:30:00 58.75 [in_i] Com [facility] weight 2024-06-09 09:30:00 242 [lb_av] Comm on [facility] temperature 2024-06-09 09:30:00 97.6 [degF] Com [facility] bmi 2024-06-09 09:30:00 49.29 kg/m2 Comm on [facility] oximetry 2024-06-09 09:30:00 88 % [facility] blood pressure systolic 2024-06-09 09:30:00 126 mm[Hg] Common [facility] blood pressure diastolic 2024-06-09 09:30:00 80 mm[Hg] Common [facility] height 2024-06-09 09:30:00 58.75 [in_i] Com [facility] weight 2024-06-09 09:30:00 242 [lb_av] Comm on [facility] temperature 2024-06-09 09:30:00 97.6 [degF] Com [facility] bmi 2024-06-09 09:30:00 49.29 kg/m2 Comm on [facility] oximetry 2024-06-09 09:30:00 88 % [facility] blood pressure systolic 2024-06-09 09:30:00 126 mm[Hg] [facility] blood pressure diastolic 2024-06-09 09:30:00 80 mm[Hg] Common [facility] height 2023-11-25 09:50:00 58.75 [in_i] Com [facility] weight 2023-11-25 09:50:00 234.6 [lb_av[facility]-25 09:50:00 97.7 [degF] Com [facility] bmi 2023-11-25 09:50:00 47.78 kg/m2 Comm on [facility] oximetry 2023-11-25 09:50:00 98 % [facility] blood pressure systolic 2023-11-25 09:50:00 126 mm[Hg] Common [facility] blood pressure diastolic 2023-11-25 09:50:00 72 mm[Hg] [facility] height 2023-11-25 09:50:00 58.75 [in_i] Com [facility] weight 2023-11-25 09:50:00 234.6 [lb_av] Co mmon [facility] temperature 2023-11-25 09:50:00 97.7 [degF] Com [facility] bmi 2023-11-25 09:50:00 47.78 kg/m2 Comm [facility] oximetry 2023-11-25 09:50:00 98 % [facility] blood pressure systolic 2023-11-25 09:50:00 126 mm[Hg] [facility] blood pressure diastolic 2023-11-25 09:50:00 72 mm[Hg] Common [facility] height 2023-04-28 14:10:00 58.75 [in_i] Com [facility] weight 2023-04-28 14:10:00 231 [lb_av] Comm on [facility] temperature 2023-04-28 14:10:00 97.4 [degF] Com [facility] bmi 2023-04-28 14:10:00 47.05 kg/m2 Comm [facility] oximetry 2023-04-28 14:10:00 99 % [facility] respiratory rate 2023-04-28 14:10:00 16 /min [facility] blood pressure systolic 2023-04-28 14:10:00 138 mm[Hg] [facility] blood pressure diastolic 2023-04-28 14:10:00 72 mm[Hg] [facility] Systolic blood pressure 2023-03-27 20:01:00 121 mm[Hg] [facility] Diastolic blood pressure 2023-03-27 20:01:00 82 mm[Hg] [facility] Heart rate 2023-03-27 20:01:00 76 /min [facility] 2023-03-27 20:01:00 37.28 Lennie [facility] Respiratory rate 2023-03-27 20:01:00 16 /min [facility] Body height 2023-03-27 20:01:00 144.8 cm [facility] Body weight 2023-03-27 20:01:00 105.688 kg [facility] BMI 2023-03-27 20:01:00 50.42 kg/m2 [facility] Oxygen saturation in Arterial blood by Pulse oximetry 2023-03-27 20:01:00 100 /min [facility] height 2022-11-18 11:10:00 58.75 [in_i] Com [facility] weight 2022-11-18 11:10:00 237.0 [lb_av] Co [facility] temperature 2022-11-18 11:10:00 97.3 [degF] Com mon [facility] bmi 2022-11-18 11:10:00 48.27 kg/m2 [facility] oximetry 2022-11-18 11:10:00 99 % [facility] respiratory rate 2022-11-18 11:10:00 18 /min [facility] [place] blood pressure systolic 2022-11-18 11:10:00 124 mm[Hg] [facility] blood pressure diastolic 2022-11-18 11:10:00 72 mm[Hg] [facility] height 2022-07-22 11:10:00 58.75 [in_i] Com [facility] weight 2022-07-22 11:10:00 237.4 [lb_av] Co [facility] temperature 2022-07-22 11:10:00 97.3 [degF] Com [facility] bmi 2022-07-22 11:10:00 48.35 kg/m2 [facility] oximetry 2022-07-22 11:10:00 100 % [facility] respiratory rate 2022-07-22 11:10:00 18 /min [facility] [place] blood pressure systolic 2022-07-22 11:10:00 118 mm[Hg] [facility] blood pressure diastolic 2022-07-22 11:10:00 73 mm[Hg] [facility] blood pressure systolic 2022-06-23 11:10:00 127 mm[Hg] [facility] blood pressure diastolic 2022-06-23 11:10:00 71 mm[Hg] [facility] height 2022-06-23 11:10:00 58.75 [in_i] Com [facility] weight 2022-06-23 11:10:00 233.1 [lb_av] Co [facility] temperature 2022-06-23 11:10:00 98.0 [degF] Com [facility] bmi 2022-06-23 11:10:00 47.48 kg/m2 Comm [facility] respiratory rate 2022-06-23 11:10:00 17 /min [facility] [place] Systolic blood pressure 2022-03-11 21:49:44 135 mm[Hg] [facility] Diastolic blood pressure 2022-03-11 21:49:44 83 mm[Hg] [facility] Heart rate 2022-03-11 21:49:44 72 /min [facility] Respiratory rate 2022-03-11 21:49:44 16 /min [facility] Oxygen saturation in Arterial blood by Pulse oximetry 2022-03-11 21:49:44 99 /min [place] [facility] Body temperature 2022-03-11 17:59:00 36.17 Lennie [facility] Body height 2022-03-11 17:59:00 147.3 cm [facility] Body weight 2022-03-11 17:59:00 107 kg [facility] BMI 2022-03-11 17:59:00 49.30 kg/m2 [facility] height 2021-11-20 08:40:00 58.75 [in_i] Com [facility] weight 2021-11-20 08:40:00 232.5 [lb_av] Co mmon [facility] temperature 2021-11-20 08:40:00 98.1 [degF] Com [facility] bmi 2021-11-20 08:40:00 47.35 kg/m2 [facility] oximetry 2021-11-20 08:40:00 100 % [facility] respiratory rate 2021-11-20 08:40:00 18 /min [facility] [place] blood pressure systolic 2021-11-20 08:40:00 132 mm[Hg] [facility] blood pressure diastolic 2021-11-20 08:40:00 68 mm[Hg] [facility] height 2021-08-05 11:10:00 58.75 [in_i] Com [facility] weight 2021-08-05 11:10:00 235 [lb_av] Comm on [facility] temperature 2021-08-05 11:10:00 97.7 [degF] Com [facility] bmi 2021-08-05 11:10:00 47.86 kg/m2 [facility] respiratory rate 2021-08-05 11:10:00 18 /min [facility] blood pressure systolic 2021-08-05 11:10:00 137 mm[Hg] [facility] blood pressure diastolic 2021-08-05 11:10:00 81 mm[Hg] [facility] Heart rate 2020-10-10 14:30:00 60 /min [facility] Respiratory rate 2020-10-10 14:30:00 27 /min [facility] Oxygen saturation in Arterial blood by Pulse oximetry 2020-10-10 14:30:00 90 /min [facility] Systolic blood pressure 2020-10-10 14:15:00 117 mm[Hg] [facility] Diastolic blood pressure 2020-10-10 14:15:00 57 mm[Hg] [facility] Body temperature 2020-10-10 14:15:00 37.11 Lennie [facility] Body weight 2020-10-10 11:00:00 95.709 kg [facility] BMI 2020-10-10 11:00:00 45.66 kg/m2 [facility] Body height 2020-10-09 05:11:00 144.8 cm [facility] Systolic blood pressure 2019-12-28 15:25:00 115 mm[Hg] [facility] Diastolic blood pressure 2019-12-28 15:25:00 77 mm[Hg] [facility] Body height 2019-12-28 15:25:00 144.8 cm [facility] Body weight 2019-12-28 15:25:00 93.441 kg [facility] BMI 2019-12-28 15:25:00 44.58 kg/m2 [facility] Systolic blood pressure 2019-12-08 14:49:00 115 mm[Hg] [facility] Diastolic blood pressure 2019-12-08 14:49:00 77 mm[Hg] [facility] Heart rate 2019-12-08 14:49:00 71 /min [facility] Respiratory rate 2019-12-08 14:49:00 18 /min [facility] Body height 2019-12-08 14:49:00 144.8 cm [facility] Body weight 2019-12-08 14:49:00 93.441 kg [facility] BMI 2019-12-08 14:49:00 44.58 kg/m2 [facility] Diastolic blood pressure 2019-06-09 14:11:00 87 mm[Hg] [place] [facility] Heart rate 2019-06-09 14:11:00 75 /min [facility] Respiratory rate 2019-06-09 14:11:00 18 /min [facility] Body height 2019-06-09 14:11:00 144.8 cm [facility] Body weight 2019-06-09 14:11:00 93.441 kg [facility] BMI 2019-06-09 14:11:00 44.58 kg/m2 [facility] Systolic blood pressure 2019-06-09 14:11:00 120 mm[Hg] [place] [facility] Procedures Procedure Date / Time Performed Performing Clinician Source XR FOOT 3+ VW RIGHT 2023-03-27 20:45:35 Ray Boykin [facility] CONSENT/REFUSAL FOR DIAGNOSIS AND TREATMENT 2023-03-27 20:00:11 Doctor Unassigned, [place] [facility] DUPLEX VENOUS LEG RIGHT - BY VASCULAR LAB 2022-03-11 20:25:00 Gianni Oreilly [facility] XR KNEE <3 VW RIGHT 2022-03-11 20:05:37 Gianni Oreilly [facility] CONSENT/REFUSAL FOR DIAGNOSIS AND TREATMENT 2022-03-11 17:56:26 Doctor Unassigned, [place] [facility] NOTICE OF PRIVACY PRACTICES 2022-03-11 17:52:58 Doctor Unassigned, [place] [facility] TROPONIN I 2020-10-10 10:26:00 [facility] COMP. METABOLIC PANEL ([id number]) 2020-10-10 10:26:00 Luke Miller [facility] CBC WITH DIFF 2020-10-10 10:26:00 [facility] PNEUMOCOCCAL ANTIGEN 2020-10-09 14:29:00 Edionwe, [facility] TROPONIN I 2020-10-09 09:35:00 Paul [facility] COMP. METABOLIC PANEL ([id number]) 2020-10-09 09:35:00 Paul [facility] CBC WITH DIFF 2020-10-09 09:35:00 [facility] 2020-10-09 09:35:00 Paul [facility] PROCALCITONIN 2020-10-09 09:35:00 [facility] COVID-19 (MOLECULAR TESTING NUCLEIC ACID AMPLIFICATION) 2020-10-09 03:40:00 [facility] 2020-10-09 02:07:00 Lexi Miranda [facility] XR CHEST 1 VW 2020-10-09 01:11:12 Lexi Miranda [facility] ADC,CLC OR [facility] ONLY - INFLUENZA A & B DIRECT ANTIGEN 2020-10-09 01:08:00 [facility] (ID NOW RAPID TESTING) 2020-10-09 01:08:00 Lexi Miranda [facility] BASIC METABOLIC PANEL (NA, K, CL, CO2, GLUCOSE, BUN, CREATININE, CA) 2020-10-09 01:05:00 Lexi Miranda [facility] CBC WITH DIFF 2020-10-09 01:05:00 Lexi Miranda [facility] CONSENT/REFUSAL FOR DIAGNOSIS AND TREATMENT 2020-10-08 23:49:16 Doctor Unassigned, [place] [facility] NOTICE OF PRIVACY PRACTICES 2020-10-08 23:48:59 Doctor Unassigned, [place] [facility] EXTERNAL PROVIDER RECORDS 2019-12-22 05:01:00 Doctor Unassigned, [place] [facility] REFERRAL- REQUEST/RESPONSE 2019-12-08 06:01:00 Doctor Unassigned, [place] [facility] Encounters Start Date/Time End Date/Time Encounter Type Admission Type Attending [facility] Care Facility Care Department Encounter ID Source 2024-12-08 09:19:00 Outpatient Bah, Mary STLMLC STL[facility]C [id number] [facility] [place] 2024-12-07 11:56:00 Outpatient Bah, Mary STLMLC STL[facility]C [id number] [facility] [place] 2024-09-13 13:08:00 Outpatient Bah, Mary STLC STLMLC [id number] [facility] [place] 2024-05-19 14:48:00 Outpatient Bah, Mary STLC STLMLC [id number] [facility] [place] 2023-04-28 14:01:00 Outpatient Bah, Mary STLC STLMLC [id number] [facility] [place] 2023-04-27 11:55:00 Outpatient Bah, Mary STLC STLMLC [id number] [facility] [place] 2022-06-18 15:13:00 Outpatient Bah, Mary STLC STLMLC [id number] [facility] [place] 2021-11-20 08:49:00 Outpatient Bah, Mary STLC STLMLC [id number] [facility] [place] 2021-11-19 11:12:02 Outpatient Bah, Mary STLC STLMLC [id number] [facility] [place] 2021-11-12 11:37:00 Outpatient Bah, Mary STLC STLMLC [id number] [facility] [place] 2021-11-05 13:09:07 Outpatient Bah, Mary STLMLC STLMLC [id number] [facility] [place] 2021-11-05 13:08:55 Outpatient Bah, Mary STLC STLMLC [id number] [facility] [place] 2021-11-05 12:43:11 Outpatient STLMLC STLMLC [id number] [facility] [place] 2021-11-05 12:42:55 Outpatient STLMLC STLMLC [id number] [facility] [place] 2021-11-05 12:42:09 Outpatient STLMLC STLMLC [id number] [facility] [place] 2021-11-05 12:19:10 Outpatient STLMLC STLMLC [id number] 59189 [facility] [place] 2021-11-05 12:08:11 Outpatient STLMLC STLMLC [id number] 06601 [facility] [place] 2021-11-05 11:53:30 Outpatient Laurie Holland STLMLC STLMLC [id number] [facility] [place] 2021-11-05 11:52:51 Outpatient Laurie Holland STLMLC STLMLC [id number] 88441 [facility] [place] 2024-12-27 00:00:00 2024-12-27 00:00:00 (TEL) STLMLC STLMLC [id number] [facility] [place] 2024-12-08 00:00:00 2024-12-08 00:00:00 (WELLNESS) Wellness Visit STLMLC STLMLC [id number] [facility] [place] 2024-12-05 00:00:00 2024-12-05 00:00:00 (TEL) STLMLC STLMLC [id number] [facility] [place] 2024-09-13 00:00:00 2024-09-13 00:00:00 (TEL) STLMLC STLMLC [id number] [facility] [place] 2024-06-09 00:00:00 2024-06-09 00:00:00 OFFICE VISIT ESTAB PT LEVEL 3 [facility]LMLC STLMLC [id number] [facility] [place] 2024-02-09 00:00:00 2024-02-09 00:00:00 (TEL) STLMLC STLMLC [id number] [facility] [place] 2023-11-25 00:00:2023-11-25 00:00:00 OFFICE VISIT ESTAB PT LEVEL 3 [facility]LMLC STLMLC [id number] [facility] [place] 2023-11-08 00:00:00 2023-11-08 00:00:00 (TEL) STLMLC STLMLC [id number] [facility] [place] 2023-04-28 00:00:00 2023-04-28 00:00:00 OFFICE VISIT ESTAB PT LEVEL 3 STLMLC STLMLC [id number] [facility] [place] 2023-04-27 00:00:00 2023-04-27 00:00:00 (TEL) STLMLC STLMLC [id number] [facility] [place] 2023-04-14 00:00:00 2023-04-14 00:00:00 (TEL) STLMLC STLMLC [id number] [facility] [place] 2023-03-27 15:06:00 2023-03-27 16:27:00 Emergency X [facility] ERT [id number] [facility] 2023-03-27 15:06:00 2023-03-27 16:27:00 Emergency [facility] 1.2.840.114 350.1.13.10 4.2.7.2.686 [id number] [facility] 2023-03-22 00:00:00 2023-03-22 00:00:00 (TEL) STLMLC STLMLC [id number] [facility] [place] 2022-11-18 00:00:00 2022-11-18 00:00:00 OFFICE VISIT ESTAB PT LEVEL 3 [facility]LMLC STLMLC [id number] [facility] [place] 2022-10-19 00:00:00 2022-10-19 00:00:00 (TEL) STLMLC STLMLC [id number] [facility] [place] 2022-07-22 00:00:00 2022-07-22 00:00:00 OFFICE VISIT EST PT LEVEL 3 STLMLC STLMLC [id number] [facility] [place] 2022-06-23 00:00:00 2022-06-23 00:00:00 OFFICE VISIT EST PT LEVEL 3 STLMLC STLMLC [id number] [facility] [place] 2022-05-18 00:00:00 2022-05-18 00:00:00 (TEL) STLMLC STLMLC [id number] [facility] [place] 2022-03-11 13:01:00 2022-03-11 17:13:00 Emergency X GIANNI OREILLY [facility] ERT [id number] [facility] 2022-03-11 13:01:00 2022-03-11 17:13:00 Emergency Gianni Oreilly [facility] 1.2.840.114 350.1.13.10 4.2.7.2.686 [id number] [facility] 2022-03-11 00:00:00 2022-03-11 00:00:00 Orders Only Doctor Unassigned, [place] [facility] 1.2.840.114 350.1.13.10 4.2.7.2.686 [id number] [facility] 2021-11-20 00:00:00 2021-11-20 00:00:00 OFFICE VISIT EST PT LEVEL 3 STLMLC STLMLC [id number] [facility] [place] 2021-08-05 00:00:00 2021-08-05 00:00:00 (TEL) STLMLC STLMLC [id number] [facility] [place] 2021-08-05 00:00:00 2021-08-05 00:00:00 OFFICE VISIT ESTAB PT LEVEL 2 STLMLC STLMLC [id number] [facility] [place] 2021-05-13 00:00:00 2021-05-13 00:00:00 Outpatient STLMLC STLMLC [id number] [facility] [place] 2020-12-31 00:00:00 2020-12-31 00:00:00 Outpatient STLMLC STLMLC [id number] [facility] 2020-10-28 00:00:00 2020-10-28 00:00:00 Outpatient STLMLC STLMLC [id number] [facility] 2020-10-16 00:00:00 2020-10-16 00:00:00 Outpatient STLMLC STLMLC [id number] [facility] 2020-10-14 00:00:00 2020-10-14 00:00:00 Transition of Care Elza Austin 1.2840.114 350.1.13.10 4.2.7.2.686 [id number] [facility] 2020-10-08 18:06:00 2020-10-10 16:09:00 Hospital Encounter MirandaLexi Paul [facility] 1.0.114 350.1.13.10 4.2.7.2.686 [id number] [facility] 2020-10-08 18:06:00 2020-10-10 16:09:00 Inpatient X [facility] RODRIGUEZ [id number] [facility] 2020-10-08 00:00:00 2020-10-08 00:00:00 Orders Only Doctor Unassigned, [place] [facility] 1.0.114 350.1.13.10 4.2.7.2.686 [id number] [facility] 2020-07-19 00:00:00 2020-07-19 00:00:00 Outpatient STLMLC STLMLC [id number] [facility] 2020-03-01 00:00:00 2020-03-01 00:00:00 Telephone Alexx Singh [facility] Health Surgical Specialti [facility] 1.2840.114 350.1.13.10 4.2.7.2.686 [id number] [facility] 2020-02-29 00:00:00 2020-02-29 00:00:00 Refill Alexx Singh [facility] Surgical Specialti es [place] 1.2840.114 350.1.13.10 4.2.7.2.686 [id number] [facility] 2020-01-09 11:00:00 2020-01-09 11:00:00 Outpatient Rosalinda t [facility] Brazadriannat [facility] [id number] [facility] 2019-12-28 10:22:37 2019-12-28 10:37:41 Office Visit Alexx Singh [facility] Surgical Specialti kayla [place] 1.2840.114 350.1.13.10 4.2.7.2.686 [id number] [facility] 2019-12-28 10:30:00 2019-12-28 10:30:00 Outpatient R ALEXX SINGH [facility] [id number] [facility] 2019-12-28 00:00:00 2019-12-28 00:00:00 Letter (Out) Alexx Singh [facility] Surgical Specialti kayla Zamora 1.2840.114 350.1.13.10 4.2.7.2.686 [id number] [facility] 2019-12-22 00:00:00 2019-12-22 00:00:00 Orders Only Doctor Unassigned, [place] [facility] 1.284.114 350.1.13.10 4.2.7.2.686 [id number] [facility] 2019-12-08 08:49:03 2019-12-08 09:16:12 Office Visit Alexx Singh [facility] Surgical Specialti kayla [place] 1.284.114 350.1.13.10 4.2.7.2.686 [id number] [facility] 2019-12-08 08:45:00 2019-12-08 08:45:00 Outpatient R ALEXX SINGH [facility] [id number] [facility] 2019-12-08 00:00:00 2019-12-08 00:00:00 Telephone Alexx Singh [facility] Surgical Specialcampbell Zamora 1.2.840.114 350.1.13.10 4.2.7.2.686 [id number] [facility] 2019-12-08 00:00:00 2019-12-08 00:00:00 Orders Only Doctor Unassigned, [place] [facility] 1..840.114 350.1.13.10 4.2.7.2.686 [id number] [facility] 2019-12-06 10:40:00 2019-12-06 10:40:00 Outpatient [facility] Medicine [facility] [id number] [facility] [place] 2019-08-10 10:14:00 2019-08-10 10:14:00 Outpatient [facility] [id number] [facility] [place] 2019-06-14 09:00:00 2019-06-14 09:00:00 Outpatient [facility] Medicine [facility] [id number] [facility] [place] 2019-06-09 08:55:19 2019-06-09 09:42:20 Office Visit Alexx Singh [facility] 1..840.114 350.1.13.10 4.2.7.2.686 [id number] [facility] 2019-06-09 00:00:00 2019-06-09 00:00:00 Telephone Nik Wilkins [facility] Sera Baker [facility] Meka 1..840.114 350.1.13.10 4.2.7.2.686 [id number] [facility] 2018-12-13 09:00:00 2018-12-13 09:00:00 Outpatient Brazospor t Godwin [facility] [id number] [facility] [place] 2018-07-11 08:30:00 2018-07-11 08:30:00 Outpatient [facility] [id number] [facility] [place] 2018-03-18 15:30:00 2018-03-18 15:30:00 Outpatient [facility] [id number] [facility] [place] 2018-01-26 08:30:00 2018-01-26 08:30:00 Outpatient [facility] [id number] [facility] [place] Results Test Description Test Time Test Comments Results Result Co mments Source CBC W/AUTO [id number] 00:00:00* Test Item Value Reference Range Interpretation Comme nts NUCLEATED RBCS (test code = 27206-2) 0.0 /100 WBC'S See_Comment [Automated messa ge] The system which generated this result transmitted reference range: 0.0 /100 WBC'S. The reference range was not used to interpret this result as normal/abnormal. ABSOLUTE EOSINOPHILS (test code = 11363-0) 0.54 K/UL See_Comment H [Automated messa ge] The system which generated this result transmitted reference range: 0.00-0.50 K/UL. The reference range was not used to interpret this result as normal/abnormal. ABSOLUTE LYMPHOCYTES (test code = 66867-6) 1.57 K/UL See_Comment [Automated messa ge] The system which generated this result transmitted reference range: 1.00-4.00 K/UL. The reference range was not used to interpret this result as normal/abnormal. ABSOLUTE MONOCYTES (test code = 03348-3) 0.46 K/UL See_Comment [Automated messa ge] The system which generated this result transmitted reference range: 0.20-1.00 K/UL. The reference range was not used to interpret this result as normal/abnormal. ABSOLUTE NEUTROPHILS (test code = 61889-2) 6.12 K/UL See_Comment [Automated messa ge] The system which generated this result transmitted reference range: 1.50-7.50 K/UL. The reference range was not used to interpret this result as normal/abnormal. BASOPHILS (test code = 93492-8) 0.6 % EOSINOPHILS (test code = 02931-2) 6.2 % HEMATOCRIT (test code = 66591-1) 37.2 % See_Comment [Automated messa ge] The system which generated this result transmitted reference range: 34.0-45.0 %. The reference range was not used to interpret this result as normal/abnormal. HEMOGLOBIN (test code = 718-7) 12.1 G/DL See_Comment [Automated messa ge] The system which generated this result transmitted reference range: 11.5-15.5 G/DL. The reference range was not used to interpret this result as normal/abnormal. LYMPHOCYTES (test code = 40007-2) 17.9 % MCH (test code = 08196-2) 27.8 PG See_Comment [Automated messa ge] The system which generated this result transmitted reference range: 25.0-33.0 PG. The reference range was not used to interpret this result as normal/abnormal. MCHC (test code = 19434-3) 32.5 G/DL See_Comment [Automated messa ge] The system which generated this result transmitted reference range: 31.0-36.0 G/DL. The reference range was not used to interpret this result as normal/abnormal. MCV (test code = 33864-5) 85.5 fL See_Comment [Automated messa ge] The system which generated this result transmitted reference range: 80.0-99.0 fL. The reference range was not used to interpret this result as normal/abnormal. MONOCYTES (test code = 05963-0) 5.3 % NEUTROPHILS (test code = 15475-9) 69.8 % PLATELET COUNT (test code = 26409-4) 349 K/UL See_Comment [Automated messa ge] The system which generated this result transmitted reference range: 130-400 K/UL. The reference range was not used to interpret this result as normal/abnormal. RBC (test code = 10561-1) 4.35 M/UL See_Comment [Automated messa ge] The system which generated this result transmitted reference range: 3.80-5.40 M/UL. The reference range was not used to interpret this result as normal/abnormal. RDW (test code = 12181-6) 14.6 % See_Comment [Automated messa ge] The system which generated this result transmitted reference range: 11.5-15.0 %. The reference range was not used to interpret this result as normal/abnormal. WBC (test code = 67699-5) 8.8 K/UL See_Comment [Automated messa ge] The system which generated this result transmitted reference range: 3.5-11.0 K/UL. The reference range was not used to interpret this result as normal/abnormal. CBC with [id number] 12:46:00* Test Item Value Reference Range Interpretation Comme nts WBC (test code = 6690-2) See_Comment [Automated messa ge] The system which generated this result transmitted reference range: 4.30 - 11.10 10*3/?L. The reference range was not used to interpret this result as normal/abnormal. RBC (test code = 789-8) See_Comment [Automated messa ge] The system which [...] 33.0 g/dL 31.6-35.1 RDW-SD (test code = 12746-3) 41.4 fL 39-49.9 RDW-CV (test code = 788-0) 13.7 % 12-15.5 PLT (test code = 777-3) See_Comment [Automated messa ge] The system which generated this result transmitted reference range: 166 - 358 10*3/?L. The reference range was not used to interpret this result as normal/abnormal. MPV (test code = 81483-8) 11.3 fL 9.5-12.9 NRBC/100 WBC (test code = 4387685870) See_Comment [Automated Habeas ssage] The system which generated this result transmitted reference range: 0.0 - 10.0 /100 WBCs. The reference range was not used to interpret this result as normal/abnormal. NRBC x10^3 (test code = 2242244327) <0.01 See_Comment [Automated messa ge] The system which generated this result transmitted reference range: 10*3/?L. The reference range was not used to interpret this result as normal/abnormal. GRAN MAT (NEUT) % (test code = 770-8) 67.3 % IMM GRAN % (test code = 5251656431) 0.80 % LYMPH % (test code = 736-9) 19.2 % MONO % (test code = 5905-5) 12.7 % EOS % (test code = 713-8) 0.0 % BASO % (test code = 706-2) 0.0 % GRAN MAT x10^3(ANC) (test code = 3388137961) 3.19 10*3/uL 1.88-7.09 IMM GRAN x10^3 (test code = 9595216137) 0.04 10*3/uL 0-0.06 LYMPH x10^3 (test code = 731-0) 0.91 10*3/uL 1.32-3.29 L MONO x10^3 (test code = 742-7) 0.60 10*3/uL 0.33-0.92 EOS x10^3 (test code = 711-2) <0.03 0.03-0.39 L BASO x10^3 (test code = 704-7) <0.03 0.01-0.07 Lab Interpretation (test code = 44516-6) Abnormal [facility] [id number] 11:48:00* Test Item Value Reference Range Interpretation Comme nts TROPONIN I (test code = 5068131276) <0.012 See_Comment [Automated message] The system which [...] biotin. ? Lab Interpretation (test code = 64126-4) Normal [facility] (26215)2020-10-10 11:41:00* Test Item Value Reference Range Interpretation Comme nts NA (test code = 6269283305) 141 mmol/L 135-145 K (test code = 2867970834) 4.2 mmol/L 3.5-5 CL (test code = 6036146249) 106 mmol/L 98-108 CO2 TOTAL (test code = 6027542074) 26 mmol/L 23-31 AGAP (test code = 3627930076) 2-16 BUN (test code = 3517957409) 20 mg/dL 7-23 GLUCOSE (test code = 6161613003) 115 mg/dL 70-110 H CREATININE (test code = 3401626989) 1.10 mg/dL 0.5-1.04 H TOTAL BILI (test code = 1363623910) 0.7 mg/dL 0.1-1.1 CALCIUM (test code = 9359251184) 9.2 mg/dL 8.6-10.6 T PROTEIN (test code = 9013313402) 7.9 g/dL 6.3-8.2 ALBUMIN (test code = 0250242720) 4.0 g/dL 3.5-5 ALK PHOS (test code = 8786363900) 93 U/L 34-122 ALTv (test code = 1742-6) 17 U/L 5-35 AST(SGOT) (test code = 5269496170) 34 U/L 13-40 eGFR Calculation (Non-) (test code = 3312660776) mL/min/1.73m2 eGFR Calculation () (test code = 6927087421) mL/min/1.73m2 VALERIY (test code = VALERIY) Association [...] imaging tests). Lab Interpretation (test code = 86492-7) [facility] [id number] 23:36:00* Test Item Value Reference Range Interpretation Comme nts Legionella Urinary Antigen (test code = 4551222685) Negative Negative VALERIY (test code = VALERIY) [...] the test. Lab Interpretation (test code = 07796-0) Normal [facility] Center[facility]NEUM[facility]CCAL [id number] 23:36:00* Test Item Value Reference Range Interpretation Comme nts S. pneumoniae antigen (test code = 4008340369) Negative Negative Lab Interpretation (test cod e = 46773-9) Normal [facility] CenterPROCALCITONIN2020-12-30 16:59:00* Test Item Value Reference Range Interpretation Comme nts Procalcitonin (test code = 8261966926) 0.04 ng/mL <0.07 VALERIY (test code = [...] lung abscess/empyema. For further information please refer to:[email or web address] Lab Interpretation (test code = 15100-7) Normal [facility] CenterCORONAVIRUS COVID-19 [id number] 12:28:00* Test Item Value Reference Range Interpretation Comme nts SARS-CoV-2 NAAT (test code = 39595-6) Positive Not Detected A VALERIY (test code = VALERIY) [employer] Aptima SARS-CoV-2 Assay is a nucleic acid amplification test intended for the qualitative detection of RNA from SARS-CoV-2 from nasopharyngeal ([employer]OCK[employer]) specimens. ?It is used under Emergency Use [...] clinically indicated. Lab Interpretation (test code = 06298-6) Abnormal [facility] CenterTROPONIN [id number] 11:41:00* Test Item Value Reference Range Interpretation Comme nts TROPONIN I (test code = 3404031604) <0.012 See_Comment [Automated message] The system which [...] biotin. ? Lab Interpretation (test code = 64161-6) Normal [facility] Center[facility] MET[facility]OLIC PANEL (09894)2020-10-09 11:32:00* Test Item Value Reference Range Interpretation Comme nts NA (test code = 5123373686) 139 mmol/L 135-145 K (test code = 9506171593) 4.7 mmol/L 3.5-5 CL (test code = 0056077955) 105 mmol/L 98-108 CO2 TOTAL (test code = 9117162545) 25 mmol/L 23-31 AGAP (test code = 8236107585) 2-16 BUN (test code = 5417833895) 18 mg/dL 7-23 GLUCOSE (test code = 8591595561) 156 mg/dL 70-110 H CREATININE (test code = 6192856324) 1.18 mg/dL 0.5-1.04 H TOTAL BILI (test code = 8402263596) 0.7 mg/dL 0.1-1.1 CALCIUM (test code = 9973311475) 8.8 mg/dL 8.6-10.6 T PROTEIN (test code = 9523510112) 7.6 g/dL 6.3-8.2 ALBUMIN (test code = 7829099702) 3.9 g/dL 3.5-5 ALK PHOS (test code = 0480927334) 96 U/L 34-122 ALTv (test code = 1742-6) 15 U/L 5-35 AST(SGOT) (test code = 4675847279) 36 U/L 13-40 eGFR Calculation (Non-) (test code = 2974671974) mL/min/1.73m2 eGFR Calculation () (test code = 7403201326) mL/min/1.73m2 VALERIY (test code = VALERIY) Association [...] imaging tests). Lab Interpretation (test code = 07501-3) Abnormal [facility] CenterD-[id number] 11:19:00* Test Item Value Reference Range Interpretation Comments D-DIMER (test code = 6826957794) See_Comment H [Automated message] The system which [...] a diagnosis. Lab Interpretation (test code = 49127-3) Abnormal [facility] CenterCBC with [id number] 10:38:00* Test Item Value Reference Range Interpretation Comme nts WBC (test code = 6690-2) See_Comment [Automated [employer]] The system which generated this result transmitted reference range: 4.30 - 11.10 10*3/?L. The reference range was not used to interpret this result as normal/abnormal. RBC (test code = 789-8) See_Comment [Automated [employer]] The system which generated this result transmitted [...] 33.9 g/dL 31.6-35.1 RDW-SD (test code = 64676-7) 41.6 fL 39-49.9 RDW-CV (test code = 788-0) 13.9 % 12-15.5 PLT (test code = 777-3) See_Comment [Automated Widdlea ge] The system which generated this result transmitted reference range: 166 - 358 10*3/?L. The reference range was not used to interpret this result as normal/abnormal. MPV (test code = 37145-7) 11.6 fL 9.5-12.9 NRBC/100 WBC (test code = 2853058954) See_Comment [Automated Habeas ssage] The system which generated this result transmitted reference range: 0.0 - 10.0 /100 WBCs. The reference range was not used to interpret this result as normal/abnormal. NRBC x10^3 (test code = 6852121142) <0.01 See_Comment [Automated Widdlea ge] The system which generated this result transmitted reference range: 10*3/?L. The reference range was not used to interpret this result as normal/abnormal. GRAN MAT (NEUT) % (test code = 770-8) 87.1 % IMM GRAN % (test code = 1485590537) 0.60 % LYMPH % (test code = 736-9) 9.8 % MONO % (test code = 5905-5) 2.5 % EOS % (test code = 713-8) 0.0 % BASO % (test code = 706-2) 0.0 % GRAN MAT x10^3(ANC) (test code = 0310869922) 4.17 10*3/uL 1.88-7.09 IMM GRAN x10^3 (test code = 4847667246) 0.03 10*3/uL 0-0.06 LYMPH x10^3 (test code = 731-0) 0.47 10*3/uL 1.32-3.29 L MONO x10^3 (test code = 742-7) 0.12 10*3/uL 0.33-0.92 L EOS x10^3 (test code = 711-2) <0.03 0.03-0.39 L BASO x10^3 (test code = 704-7) <0.03 0.01-0.07 Lab Interpretation (test code = 61044-2) Abnormal [facility] CenterUrinalysis2020-12-30 02:44:00* Test Item Value Reference Range Interpretation Comme nts APPEARANCE (test code = 2021704529) Hazy Clear A COLOR (test code = 0269991269) Yellow Yellow PH (test code = 8003804642) 4.8-8.0 SP GRAVITY (test code = 6797289584) 1.003-1.030 GLU U QUAL (test code = 6808728358) Normal Normal BLOOD (test code = 6006490724) Negative Negative KETONES (test code = 6961120907) Negative Negative PROTEIN (test code = 2887-8) Negative Negative UROBILIN (test code = 9743867319) 4.0 mg/dL Normal A BILIRUBIN (test code = 9564988401) Negative Negative NITRITE (test code = 8010289250) Negative Negative LEUK LUC (test code = 2413546065) 25/uL Negative A RBC/HPF (test code = 4173689143) <1 See_Comment [Automated Widdlea ge] The system which generated this result transmitted reference range: 0 - 3 HPF. The reference range was not used to interpret this result as normal/abnormal. WBC/HPF (test code = 0734496866) See_Comment [Automated Widdlea ge] The system which generated this result transmitted reference range: 0 - 5 HPF. The reference range was not used to interpret this result as normal/abnormal. BACTERIA (test code = 4649386817) Few Negative A SQ EPITH (test code = 9972025099) HPF Lab Interpretation (test code = 05411-5) Abnormal [facility] CenterADC,CLC OR L[facility] ONLY - INFLUENZA A & B DIRECT [id number] 02:00:00* Test Item Value Reference Range Interpretation Comme nts Influenza A (test code = 72489-7) Negative Negative Influenza B (test code = 71168-9) Negative Negative Lab Interpretation (test cod e = 01321-4) Normal [facility] CenterCOVID-19 (ID NOW RAPID TESTING)2020-10-09 01:39:00* Test Item Value Reference Range Interpretation Comme nts SARS-CoV-2 Rapid ID NOW (test code = 48309-0) Not Detected Not Detected VALERIY (test code = VALERIY) ID NOW COVID-19 As say is an isothermal nucleic acid amplification test intended for the qualitative detection of nucleic acid from SARS-CoV-2 viral RNA in nasopharyngeal ([employer]) specimens. It is used under Emergency Use [...] clinically indicated. Lab Interpretation (test code = 23164-6) Normal [facility] (NA, K, CL, CO2, GLUCOSE, BUN, CREATININE, CA)2020-10-09 01:34:00* Test Item Value Reference Range Interpretation Comme nts NA (test code = 5251892762) 137 mmol/L 135-145 K (test code = 2712088446) 4.3 mmol/L 3.5-5 CL (test code = 1428414285) 103 mmol/L 98-108 CO2 TOTAL (test code = 9880664258) 25 mmol/L 23-31 AGAP (test code = 9968642841) 2-16 BUN (test code = 1759226971) 17 mg/dL 7-23 GLUCOSE (test code = 1207765592) 107 mg/dL 70-110 CREATININE (test code = 1781536494) 1.10 mg/dL 0.5-1.04 H CALCIUM (test code = 6889583937) 8.6 mg/dL 8.6-10.6 eGFR Calculation (Non-) (test code = 3561918117) mL/min/1.73m2 eGFR Calculation () (test code = 6834350880) mL/min/1.73m2 VALERIY (test code = VALERIY) Association [...] imaging tests). Lab Interpretation (test code = 86524-8) Abnormal [facility] 1 [id number] 01:29:28Impression: Bilateral lung opacities compatible with known Covid 19pneumonia.Exam: XR CHEST 1 10/08/2020 6:51 PM Clinical History: COVID Comparison: None Technique: frontal view of the chest Findings: Bilateral ill-defined patchy airspace and streaky opacities suggestive ofatypical pneumonia including Covid 19.No pleural effusion. ?No pneumothorax. The cardiac size is within normal limits. No acute osseous abnormality. [facility], Radiant Results Inft User - 10/08/2020 7:30 PM CSTExam: XR CHEST 1 10/08/2020 6:51 PMClinical History: COVID Comparison: NoneTechnique: frontal view of the chestFindings:Bilateral ill-defined patchy airspace and streaky opacities suggestive ofatypical pneumonia including Covid 19.No pleural effusion. No pneumothorax. The cardiac size is within normal limits. No acute osseous abnormality.IMPRESSIONImpression: Bilateral lung opacities compatible with known [id number].[facility] with [id number] 01:16:00* Test Item Value Reference Range Interpretation Comme nts WBC (test code = 6690-2) See_Comment [Automated Widdlea ge] The system which generated this result transmitted reference range: 4.30 - 11.10 10*3/?L. The reference range was not used to interpret this result as normal/abnormal. RBC (test code = 789-8) See_Comment [Automated Widdlea ge] The system which generated this result [...] 33.1 g/dL 31.6-35.1 RDW-SD (test code = 07356-1) 42.1 fL 39-49.9 RDW-CV (test code = 788-0) 13.9 % 12-15.5 PLT (test code = 777-3) See_Comment [Automated Widdlea ge] The system which generated this result transmitted reference range: 166 - 358 10*3/?L. The reference range was not used to interpret this result as normal/abnormal. MPV (test code = 88527-3) 11.3 fL 9.5-12.9 NRBC/100 WBC (test code = 6107406141) See_Comment [Automated Habeas ssage] The system which generated this result transmitted reference range: 0.0 - 10.0 /100 WBCs. The reference range was not used to interpret this result as normal/abnormal. NRBC x10^3 (test code = 1086511654) <0.01 See_Comment [Automated messa ge] The system which generated this result transmitted reference range: 10*3/?L. The reference range was not used to interpret this result as normal/abnormal. GRAN MAT (NEUT) % (test code = 770-8) 70.3 % IMM GRAN % (test code = 2765685966) 0.70 % LYMPH % (test code = 736-9) 16.1 % MONO % (test code = 5905-5) 11.8 % EOS % (test code = 713-8) 0.9 % BASO % (test code = 706-2) 0.2 % GRAN MAT x10^3(ANC) (test code = 4096793476) 3.93 10*3/uL 1.88-7.09 IMM GRAN x10^3 (test code = 9887438741) 0.04 10*3/uL 0-0.06 LYMPH x10^3 (test code = 731-0) 0.90 10*3/uL 1.32-3.29 L MONO x10^3 (test code = 742-7) 0.66 10*3/uL 0.33-0.92 EOS x10^3 (test code = 711-2) 0.05 10*3/uL 0.03-0.39 BASO x10^3 (test code = 704-7) <0.03 0.01-0.07 Lab Interpretation (test code = 42074-1) Abnormal [facility]
[2025-02-27] MEDS ORDERED: IBUPROFEN 200 MG TAB PO ONE (13:12)
--- NOTE | 2025-02-27 13:46 | RAD REPORT ---
EXAM: Knee Left 3 View INDICATION: PAIN COMPARISON: 10/30/2024 FINDINGS: No acute fracture. No significant knee effusion. Mild joint space loss in the medial lateral compartments. Subchondral sclerosis at the medial femoral condyle may be postprocedural or secondary to degenerative changes. Patellofemoral compartment spurring. Other: N/A IMPRESSION: No acute osseous abnormality involving the imaged knee.
--- NOTE | 2025-02-27 14:10 | EDPHYS ---
Physician Documentation [facility] Name: Susana Lane Age: 59 yrs Sex: Female : 1965 Arrival Date: 02/27/2025 Time: 12:08 Bed 12 Private MD: ED Physician Marlon Morton HPI: 02/27 14:10 This 59 yrs old Black Female presents to ER via Ambulatory with complaints of Knee Pain ms3 - left. 14:10 59-year-old female with past medical history of hypertension presents to the emergency ms3 department for left knee pain that began this morning. Patient states her pain is 9/10 and is worse with walking. Patient denies fevers, chills, nausea, vomiting. Patient states she took some Tylenol this morning.. Historical: - Allergies: 12:51 No Known Allergies; ss - Home Meds: 12:51 lisinopril Oral [Active]; ss - PMHx: 12:51 Hypertension; ss - PSHx: 12:51 None; ss - Infectious Disease History:: Denies. - Social history:: Smoking status: Patient denies any tobacco usage or history of. ROS: 14:10 Constitutional: Negative for fever, and chills. Cardiovascular: Negative for chest ms3 pain, and palpitations. Respiratory: Negative for shortness of breath, cough, wheezing, and pleuritic chest pain, Abdomen/GI: Negative for abdominal pain, nausea, vomiting, diarrhea, and constipation, 14:10 Skin: Negative for injury, rash, and discoloration, 14:10 MS/extremity: Positive for pain, of the Left knee, Exam: 14:10 Constitutional: This is a well developed, well nourished patient who is awake, alert, ms3 and in no acute distress. Cardiovascular: Regular rate and rhythm with a normal S1 and S2. No gallops, murmurs, or rubs. Normal PMI, no JVD. No pulse deficits. Respiratory: Lungs have equal breath sounds bilaterally, clear to auscultation and percussion. No rales, rhonchi or wheezes noted. No increased work of breathing, no retractions or nasal flaring. Abdomen/GI: Soft, non-tender, with normal bowel sounds. No distension or tympany. No guarding or rebound. No evidence of tenderness throughout. Skin: Warm, dry with normal turgor. Normal color with no rashes, no lesions, and no evidence of cellulitis. 14:10 Musculoskeletal/extremity: Extremities: noted in the Left knee: pain, There is no evidence of swelling, Vital Signs: 12:50 Resp 16; Temp 97.9(TE); Pulse Ox 98% on R/A; Weight 106.59 kg; Height 4 ft. 9 in. ; ss Pain 9/10; 12:50 BP 111 / 79; Pulse 89; ss 12:50 Body Mass Index 50.85 (106.59 kg, 144.78 cm) ss 12:50 Pain Scale: Adult ss MDM: 12:52 Medical Screening Exam initiated ms3 14:10 Differential diagnosis: Osteoarthritis versus tendinitis versus sprain/strain. Data ms3 reviewed: vital signs, nurses notes, radiologic studies, and as a result, I will discharge patient. I considered the following discharge prescriptions or medication management in the emergency department Medications were administered in the Emergency Department. See MAR. Independent interpretation of the following test(s) in the Emergency Department X-Ray: My interpretation is Left knee x-ray images reviewed by me do not reveal fracture. Counseling: I had a detailed discussion with the patient and/or guardian regarding the historical points, exam findings, and any diagnostic results supporting the discharge/admit diagnosis, radiology results, the need for outpatient follow up, to return to the emergency department if symptoms worsen or persist or if there are any questions or concerns that arise at home. Special discussion: I discussed with the patient/guardian in detail that at this point there is no indication for admission to the hospital. It is understood, however, that if the symptoms persist or worsen the patient needs to return immediately for re-evaluation. ED course: Discussed x-ray results with patient. Patient to follow-up with Dr. Centeno in 2 to 3 days. All questions were answered. Return precautions discussed include worsening symptoms, or any other concerns.. 02/27 12:22 Order name: Knee Left 3 View XRAY; Complete Time: 14:00 ms3 Administered Medications: 13:20 Drug: Ibuprofen PO 600 mg PO once Route: PO; ss 14:31 Follow up: Response: No adverse reaction ss Disposition Summary: 02/27/25 14:10 Discharge Ordered Notes: Location: Home ms3 Condition: Stable ms3 Diagnosis - Pain in left knee ms3 Followup: ms3 - With: Misbah Centeno MD - When: 2 - 3 days - Reason: Recheck today's complaints Discharge Instructions: - Discharge Summary Sheet ms3 - Acute Knee Pain, Adult ms3 Forms: - Medication Reconciliation Form ms3 - Antibiotic Education ms3 - Prescription Opioid Use ms3 - Patient Portal Instructions ms3 - Leadership Thank You Letter ms3 Signatures: Dispatcher [employer] Henrietta Soto RN RN Marlon Mcleod DO DO ms3 Corrections: (The following items were deleted from the chart) 14:10 14:01 Crutches ordered. ms3 ms3
--- NOTE | 2025-02-27 14:10 | ER ---
Nurse's Notes [facility] Name: Susana Lane Age: 59 yrs Sex: Female : 1965 Arrival Date: 02/27/2025 Time: 12:08 Bed 12 Private MD: Diagnosis: Pain in left knee Presentation: 02/27 12:50 Chief complaint: Patient states: L knee pain that began this morning. Coronavirus ss screen: Client denies travel out of the [place] in the last 14 days. Ebola Screen: Patient denies exposure to infectious person. Patient denies travel to an Ebola-affected area in the 21 days before illness onset. Initial Sepsis Screen: Does the patient meet any 2 criteria? No. Patient's initial sepsis screen is negative. Does the patient have a suspected source of infection? No. Patient's initial sepsis screen is negative. Risk Assessment: Do you want to hurt yourself or someone else? Patient reports no desire to harm self or others. Onset of symptoms was February 27, 2025. 12:50 Method Of Arrival: Ambulatory 12:50 Acuity: JAKOB 4 ss Historical: - Allergies: 12:51 No Known Allergies; ss - Home Meds: 12:51 lisinopril Oral [Active]; ss - PMHx: 12:51 Hypertension; ss - PSHx: 12:51 None; ss - Infectious Disease History:: Denies. - Social history:: Smoking status: Patient denies any tobacco usage or history of. Assessment: 12:55 Reassessment: to XRAY now VIA wheelchair. Vital Signs: 12:50 Resp 16; Temp 97.9(TE); Pulse Ox 98% on R/A; Weight 106.59 kg; Height 4 ft. 9 in. ; ss Pain 9/10; 12:50 BP 111 / 79; Pulse 89; ss 12:50 Body Mass Index 50.85 (106.59 kg, 144.78 cm) 12:50 Pain Scale: Adult ED Course: 12:11 Patient arrived in ED. im 12:13 Marlon Morton DO is Attending Physician. ms3 12:50 Triage completed. ss 12:50 Arm band placed on right wrist. ss 12:55 Henrietta Holloway, RN is Primary Nurse. ss 13:01 Knee Left 3 View XRAY In Process Unspecified. EDMS 14:10 Misbah Centeno MD is Referral Physician. ms3 14:26 No provider procedures requiring assistance completed. Patient did not have IV access ss during this emergency room visit. Administered Medications: 13:20 Drug: Ibuprofen PO 600 mg PO once Route: PO; ss 14:31 Follow up: Response: No adverse reaction ss Outcome: 14:10 Discharge ordered by . ms3 14:26 Discharged to home ambulatory, 14:26 Condition: good 14:26 Discharge instructions given to patient, Instructed on discharge instructions, follow up and referral plans. Demonstrated understanding of instructions, follow-up care, 14:31 Patient left the ED. ss Signatures: Dispatcher [employer] EDMS Henrietta Holloway RN RN Marlon Morton DO DO ms3 Carmella Lugo im
[2025-02-27 14:36] VITALS: BP 111/79; TEMP 97.9; O2SAT 98
== END 2025-02-27 14:31 | disposition home or self-care (01) ==
LOC: ER 12:08
DX: M25.562 Pain in left knee (principal)